=== PATIENT | male | born 1995 | race Two or more races ===

== ENCOUNTER 2017-04-01 12:08 | Emergency (ER) | payer OTHER ==
[2017-04-01 12:32] VITALS: BP 146/85; PULSE 70; RESP 18; TEMP 97.8
[2017-04-01] MEDS ORDERED: cefTRIAXone 250 MG VIAL IM STA (12:42)
[2017-04-01] MEDS ORDERED: AZITHROMYCIN 500 MG TAB PO STA (12:44)
--- NOTE | 2017-04-01 13:14 | ED ---
General Adult HPI - General Chief complaint: Abdominal Pain Stated complaint: Abd Pain Time Seen by Provider: 04/01/17 12:37 Source: patient, RN notes reviewed, old records reviewed Mode of arrival: ambulatory Limitations: no limitations - History of Present Illness Initial comments: This is a 22-year-old male the ER for evaluation of dysuria. Patient does have history of recent sexual activity. Patient states he is having drainage from his urethra, penis. No rash. No fevers. No other swelling or edema - Related Data Previous Rx's Medication Instructions Recorded Doxycycline Monohydrate [Monodox] 100 mg PO Q12HR #28 cap 04/01/17 Allergies Allergy/AdvReac Type Severity Reaction Status Date / Time No Known Allergies Allergy Verified 04/01/17 13:00 Review of Systems ROS Statement: Those systems with pertinent positive or pertinent negative responses have been documented in the HPI. ROS Other: All systems not noted in ROS Statement are negative. Past Medical History Past Medical History: No Reported History History of Any Multi-Drug Resistant Organisms: None Reported Past Surgical History: No Surgical Hx Reported Past Psychological History: No Psychological Hx Reported Smoking Status: Current every day smoker Past Alcohol Use History: None Reported Past Drug Use History: None Reported General Exam Limitations: no limitations General appearance: alert, in no apparent distress Head exam: Present: atraumatic, normocephalic, normal inspection Eye exam: Present: normal appearance, PERRL, EOMI. Absent: scleral icterus, conjunctival injection, periorbital swelling ENT exam: Present: normal exam, mucous membranes moist Neck exam: Present: normal inspection. Absent: tenderness, meningismus, lymphadenopathy Respiratory exam: Present: normal lung sounds bilaterally. Absent: respiratory distress, wheezes, rales, rhonchi, stridor Cardiovascular Exam: Present: regular rate, normal rhythm, normal heart sounds. Absent: systolic murmur, diastolic murmur, rubs, gallop, clicks GI/Abdominal exam: Present: soft, normal bowel sounds. Absent: distended, tenderness, guarding, rebound, rigid Extremities exam: Present: normal inspection, full ROM, normal capillary refill. Absent: tenderness, pedal edema, joint swelling, calf tenderness Back exam: Present: normal inspection Neurological exam: Present: alert, oriented X3, CN II-XII intact Psychiatric exam: Present: normal affect, normal mood Skin exam: Present: warm, dry, intact, normal color. Absent: rash Course Vital Signs 04/01/17 12:30 Temperature 97.8 F Pulse Rate 70 Respiratory 18 Rate Blood Pressure 146/85 O2 Sat by Pulse 99 Oximetry - Reevaluation(s) Reevaluation #1: 04/01/17 13:13 Patient denying genital exam at this time Medical Decision Making - Medical Decision Making 22 male the ER for evaluation of dysuria. Urine is cultured, patient's treated appropriately can be discharged home - Lab Data Lab Results 04/01/17 Range/Units 12:51 Urine Color Light Yellow Urine Appearance Cloudy (Clear) Urine pH 7.0 (5.0-8.0) Ur Specific [place] 1.007 (1.001-1.035) Urine Protein Negative (Negative) Urine Glucose (UA) Negative (Negative) Urine Ketones Negative (Negative) Urine Blood Trace H (Negative) Urine Nitrite Negative (Negative) Urine Bilirubin Negative (Negative) Urine Urobilinogen <2.0 (<2.0) mg/dL Ur Leukocyte Esterase Large H (Negative) Urine RBC 7 H (0-5) /hpf Urine WBC 165 H (0-5) /hpf Disposition Clinical Impression: Nongonococcal urethritis in male Disposition: HOME SELF-CARE Condition: Good Instructions: Nonspecific Urethritis in Men (ED) Prescriptions: Doxycycline Monohydrate [Monodox] 100 mg PO Q12HR #28 cap Referrals: None,Stated [Primary Care Provider] - 1-2 days
[2017-04-01 13:17] LABS: Appearance,Urine Cloudy (Clear); Bilirubin,Urine Negative (Negative); Blood,Urine Trace (Negative); Color,Urine Light Yellow; Glucose,Urine (UA) Negative (Negative); Ketones,Urine Negative (Negative); Leukocyte Esterase,Urine Large (Negative); Nitrite,Urine Negative (Negative); Protein,Urine Negative (Negative); RBC,Urine 7 /hpf (0-5); Specific Gravity,Urine 1.007 (1.001-1.035); Urobilinogen,Urine <2.0 mg/dL (<2.0); WBC,Urine 165 /hpf (0-5)
[2017-04-03 08:25] LABS: C. trachomatis,PCR Negative (Neg,Equiv); Chlamydia trachomatis Source Urine; N. gonorrhoeae,PCR Positive (Neg,Equiv); Neisseria Source Urine
== END 2017-04-01 14:24 | disposition home or self-care (01) ==
LOC: EC 12:08
DX: N34.1 Nonspecific urethritis (principal); F17.200 Nicotine dependence, unspecified, uncomplicated
CPT/HCPCS: 81001; 87491; 87591; 87086; 99284; 96372; J0696

== ENCOUNTER 2017-07-22 15:27 | Emergency (ER) | payer OTHER ==
[2017-07-22 15:34] VITALS: BP 141/88; PULSE 64; RESP 18; TEMP 97.8
[2017-07-22] MEDS ORDERED: IBUPROFEN 600 MG TAB PO STA (16:04)
--- NOTE | 2017-07-22 16:23 | XR ---
EXAMINATION TYPE: XR foot complete LT DATE OF EXAM: 07/22/2017 CLINICAL HISTORY: First digit laceration with glass TECHNIQUE: Frontal, lateral, and oblique images of the left foot are obtained. COMPARISON: None FINDINGS: Soft tissue swelling and focal defect are seen of the medial first digit of the left foot at the interphalangeal joint. No radiopaque foreign body is seen. There is no acute fracture/dislocat ion evident in the left foot. The joint spaces in the left foot appear within normal limits. The ov erlying soft tissue appears unremarkable. IMPRESSION: There is no acute fracture or dislocation in the left foot. Soft tissue swelling and foc al soft tissue defect of the medial left first digit overlying the interphalangeal joint with no radi opaque foreign body identified.
--- NOTE | 2017-07-22 16:25 | ED ---
General Adult HPI - General Chief complaint: Extremity Injury, Lower Stated complaint: foot injury Time Seen by Provider: 07/22/17 15:40 Source: patient, RN notes reviewed Mode of arrival: wheelchair Limitations: no limitations - History of Present Illness Initial comments: 22-year-old male presents to the emergency department for a chief complaint of left foot pain 1 hour. Patient dropped a glass table on his left foot and the glass broke. Patient states his tetanus is up-to-date. Patient is able to walk on it but it is painful. Patient denies injuring any other area. Patient denies hitting his head. Patient has no other complaints at this time including shortness of breath, chest pain, abdominal pain, nausea or vomiting, headache, or visual changes. - Related Data Previous Rx's Medication Instructions Recorded Doxycycline Monohydrate [Monodox] 100 mg PO Q12HR #28 cap 04/01/17 Acetaminophen [Tylenol] 500 mg PO Q4-6H PRN #20 tab 07/22/17 Ibuprofen [Motrin] 600 mg PO Q8HR PRN #20 tab 07/22/17 Allergies Allergy/AdvReac Type Severity Reaction Status Date / Time cadex Allergy Unknown Uncoded 07/22/17 15:32 Review of Systems ROS Statement: Those systems with pertinent positive or pertinent negative responses have been documented in the HPI. ROS Other: All systems not noted in ROS Statement are negative. Past Medical History Past Medical History: No Reported History History of Any Multi-Drug Resistant Organisms: None Reported Past Surgical History: No Surgical Hx Reported Past Psychological History: No Psychological Hx Reported Smoking Status: Current every day smoker Past Alcohol Use History: None Reported Past Drug Use History: None Reported General Exam Limitations: no limitations General appearance: alert, in no apparent distress Head exam: Present: atraumatic, normocephalic, normal inspection Eye exam: Present: normal appearance ENT exam: Present: normal exam, mucous membranes moist Neck exam: Present: normal inspection. Absent: tenderness, meningismus, lymphadenopathy Respiratory exam: Present: normal lung sounds bilaterally. Absent: respiratory distress, wheezes, rales, rhonchi, stridor Cardiovascular Exam: Present: regular rate, normal rhythm, normal heart sounds. Absent: systolic murmur, diastolic murmur, rubs, gallop, clicks Extremities exam: Present: normal inspection, tenderness (Patient has tenderness on the dorsal digits of the left foot), normal capillary refill ( Refill less than 2 seconds and pedal pulse 2+). Absent: full ROM (Patient has limited range of motion of the digits of the left foot but is able to move all toes.), pedal edema, joint swelling (Patient has mild swelling of), calf tenderness Course Vital Signs 07/22/17 15:32 Temperature 97.8 F Pulse Rate 64 Respiratory 18 Rate Blood Pressure 141/88 O2 Sat by Pulse 100 Oximetry Medical Decision Making - Medical Decision Making 22-year-old male presents to the emergency department for a chief complaint of left foot pain 1 hour. Patient dropped a glass table on his foot. Patient states the glass shattered. Patient denies any other injuries. Tetanus up-to- date. On exam patient has tenderness over all digits of the left foot. Pedal pulse 2+. Capillary refill less than 2 seconds. There are abrasions on the first third and fourth digits. Vitals within normal limits. Foot was soaked in water and cleaned thoroughly. There is no acute fracture or dislocation in the left foot. Soft tissue swelling and focal soft tissue defect on the medial left first digit overlying the interphalangeal joint with no radiopaque foreign body identified. Bacitracin was applied to the abrasions on the first third and fourth digits. Band-Aids were also applied. No signs of infection currently. Patient was educated that he may need repeat x-rays in 7-10 days if symptoms continue. He will return to the emergency department if he has any other worsening symptoms. Patient can walk on it but was given today and tomorrow off of work to keep it elevated and apply ice. Disposition Clinical Impression: Contusion of foot, left Disposition: HOME SELF-CARE Condition: Good Instructions: Foot Contusion (ED), RICE Therapy (ED) Additional Instructions: Please take Motrin and Tylenol for pain. Please elevate the foot and apply ice throughout the day. Return to the emergency department if you have any worsening symptoms. Prescriptions: Acetaminophen [Tylenol] 500 mg PO Q4-6H PRN #20 tab PRN Reason: Pain Ibuprofen [Motrin] 600 mg PO Q8HR PRN #20 tab PRN Reason: Pain Is patient prescribed a controlled substance at d/c from ED?: No Referrals: Venkat Harrington DO [STAFF PHYSICIAN] - 1-2 days Time of Disposition: 16:56
[2017-07-22] MEDS ORDERED: Acetaminophen-Codeine 300-30mg TAB PO STA (16:54)
== END 2017-07-22 17:04 | disposition home or self-care (01) ==
LOC: EC 15:27
DX: S90.32XA Contusion of left foot, initial encounter (principal); F17.200 Nicotine dependence, unspecified, uncomplicated; Z88.8 Allergy status to other drugs, medicaments and biological substances; W20.8XXA Other cause of strike by thrown, projected or falling object, initial encounter; Y92.009 Unspecified place in unspecified non-institutional (private) residence as the place of occurrence of the external cause
CPT/HCPCS: 99283

== ENCOUNTER 2017-12-01 09:40 | Emergency (ER) | payer OTHER ==
[2017-12-01 10:26] VITALS: BP 113/64; PULSE 71; RESP 18; TEMP 99.6
[2017-12-01] MEDS ORDERED: AMOXIC-POT CLAV 875MG STARTER 2 EACH TABLET PO STA (11:32)
[2017-12-01] MEDS ORDERED: ACETAMINOPHEN TAB 500 MG TAB PO STA (11:32)
--- NOTE | 2017-12-01 11:34 | ED ---
ENT HPI - General Chief complaint: ENT Stated complaint: nodule on throat Time Seen by Provider: 12/01/17 11:11 Source: patient, RN notes reviewed, old records reviewed Mode of arrival: ambulatory Limitations: no limitations - History of Present Illness Initial comments: Patient is a 22-year-old male presents restarted chief complaint of sore throat , and dental pain. Patient reports that he is having symptoms for the past 2 days. Reports that his throat is swelling in his has enlarged tonsils. Patient states he has had low-grade fevers. He reports that did have an abscess over his left upper molar, which drained yesterday. Patient reports that he had purulent drainage from the teeth.Patient denies any recent fever, chills, shortness of breath, chest pain, back pain, abdominal pain, nausea vomiting, numbness or tingling, dysuria or hematuria, constipation or diarrhea, headaches or visual changes, or any other current symptoms - Related Data Home Medications Medication Instructions Recorded Confirmed Ibuprofen [Motrin Ib] 800 mg PO Q6H PRN 12/01/17 12/01/17 Previous Rx's Medication Instructions Recorded Amoxic-Pot Clav 875-125Mg 1 tab PO BID 3 Days #6 tab 12/01/17 [Augmentin 875-125] Amoxic-Pot Clav 875-125Mg 1 tab PO Q12HR #20 tablet 12/02/17 [Augmentin 875-125] Allergies Allergy/AdvReac Type Severity Reaction Status Date / Time cadex Allergy Unknown Uncoded 12/01/17 10:26 Review of Systems ROS Statement: Those systems with pertinent positive or pertinent negative responses have been documented in the HPI. ROS Other: All systems not noted in ROS Statement are negative. Past Medical History Past Medical History: No Reported History History of Any Multi-Drug Resistant Organisms: None Reported Past Surgical History: No Surgical Hx Reported Past Psychological History: No Psychological Hx Reported Smoking Status: Current every day smoker Past Alcohol Use History: Occasional Past Drug Use History: None Reported General Exam - General Exam Comments Initial Comments: 22-year-old male. Alert and oriented. No significant distress. Limitations: no limitations General appearance: alert, in no apparent distress Head exam: Present: atraumatic, normocephalic, normal inspection Eye exam: Present: normal appearance, PERRL, EOMI. Absent: scleral icterus, conjunctival injection, periorbital swelling ENT exam: Present: mucous membranes moist. Absent: normal exam, normal oropharynx (Patient is swollen oropharynx, evidence of exudate. Drainage from left upper molar noted.) Neck exam: Present: normal inspection. Absent: tenderness, meningismus, lymphadenopathy Respiratory exam: Present: normal lung sounds bilaterally. Absent: respiratory distress, wheezes, rales, rhonchi, stridor Cardiovascular Exam: Present: regular rate, normal rhythm, normal heart sounds. Absent: systolic murmur, diastolic murmur, rubs, gallop, clicks GI/Abdominal exam: Present: soft, normal bowel sounds. Absent: distended, tenderness, guarding, rebound, rigid Neurological exam: Present: alert, oriented X3, CN II-XII intact Psychiatric exam: Present: normal affect, normal mood Skin exam: Present: warm, dry, intact, normal color. Absent: rash Course Vital Signs 12/01/17 10:23 Temperature 99.6 F Pulse Rate 71 Respiratory 18 Rate Blood Pressure 113/64 O2 Sat by Pulse 96 Oximetry Medical Decision Making - Medical Decision Making 20-year-old male presents for times a day with dental abscess also pharyngitis. His evidence that she is were the posterior oropharynx. At this time I'll put the Patient on Augmentin to cover for anaerobic and sickle strep bacteria to cause the symptoms. Patient had low-grade temperature as well. Given Tylenol. Discussed needs follow-up with dentist as well as primary care physician. Patient agrees to plan will comply. Return parameters were discussed. Disposition Clinical Impression: Pharyngitis, Dental abscess Disposition: HOME SELF-CARE Condition: Good Instructions: Dental Abscess (ED) Additional Instructions: Patient advised to follow up with primary care provider. Return to emergency department if any alarming signs or symptoms occur. [facility] [place] [address] [phone] (existing clients only) For new clients: [phone] 1st consult: $50 (includes Xrays) Usually 30% less then private dentist for visits after. [employer] Have to pay $50 for Xrays anmd rest is covered. [phone] Prescriptions: Amoxic-Pot Clav 875-125Mg [Augmentin 875-125] 1 tab PO BID 3 Days #6 tab Amoxic-Pot Clav 875-125Mg [Augmentin 875-125] 1 tab PO Q12HR #20 tablet Is patient prescribed a controlled substance at d/c from ED?: No Referrals: None,Stated [Primary Care Provider] - 1-2 days Time of Disposition: 11:33
== END 2017-12-01 11:44 | disposition home or self-care (01) ==
LOC: EC 09:40
DX: K04.7 Periapical abscess without sinus (principal); J02.9 Acute pharyngitis, unspecified; F17.200 Nicotine dependence, unspecified, uncomplicated; Z88.8 Allergy status to other drugs, medicaments and biological substances
CPT/HCPCS: 99283

== ENCOUNTER 2018-08-12 07:52 | Emergency (ER) | payer OTHER ==
[2018-08-12 07:56] VITALS: RESP 18; TEMP 97.6
[2018-08-12] MEDS ORDERED: KETOROLAC 30 MG/ML 1 ML VIAL IVP STA (08:06)
[2018-08-12] MEDS ORDERED: diphenhydrAMINE 50 MG/ML 1 ML VIAL IVP STA (08:06)
[2018-08-12] MEDS ORDERED: METOCLOPRAMIDE 5 MG/ML 2 ML VIAL IVP STA (08:06)
[2018-08-12] MEDS ORDERED: SODIUM CHLORIDE 0.9% 1,000 ML IV STA ×2 (08:06)
[2018-08-12] MEDS ORDERED: ORPHENADRINE 30 MG/ML 2 ML VIAL IVP STA (08:11)
--- NOTE | 2018-08-12 08:13 | ED ---
General Adult HPI - General Chief complaint: Headache Stated complaint: headache Time Seen by Provider: 08/12/18 07:59 Source: patient, RN notes reviewed, old records reviewed Mode of arrival: ambulatory Limitations: no limitations - History of Present Illness Initial comments: Patient is a 23-year-old male who presents emergency department today for bradly luation for migraine-like headache. He reports his been having a headache off-and-on for the past 2 days. Patient states that he initially believed it was related to dental pain. He hasn't known history of dental caries and dental abscess. He states he does not follow with a dentist. Patient states that today he woke up with a pounding headache. He has not taken any Motrin or Tylenol. He states that his ever had history of migraines in the past. Patient states that he has had no fevers or chills. Denies any neck pain. Patient denies any recent fever, chills, shortness of breath, chest pain, back pain, abdominal pain, nausea vomiting, numbness or tingling, dysuria or hematuria, constipation or diarrhea, visual changes, or any other current symptoms - Related Data Home Medications Medication Instructions Recorded Confirmed Multivitamins, Thera [Multivitamin 1 tab PO DAILY 08/12/18 08/12/18 (formulary)] Previous Rx's Medication Instructions Recorded Amoxicillin 500 mg PO Q8H #21 capsule 08/12/18 Allergies Allergy/AdvReac Type Severity Reaction Status Date / Time cadex Allergy Rash/Hives Uncoded 08/12/18 08:46 Review of Systems ROS Statement: Those systems with pertinent positive or pertinent negative responses have been documented in the HPI. ROS Other: All systems not noted in ROS Statement are negative. Past Medical History Past Medical History: No Reported History History of Any Multi-Drug Resistant Organisms: None Reported Past Surgical History: No Surgical Hx Reported Past Psychological History: No Psychological Hx Reported Smoking Status: Current every day smoker Past Alcohol Use History: Occasional Past Drug Use History: None Reported General Exam - General Exam Comments Initial Comments: Pleasant alert and oriented 23-year-old male. No distress. Limitations: no limitations General appearance: alert, in no apparent distress Head exam: Present: atraumatic, normocephalic, normal inspection Eye exam: Present: normal appearance, PERRL, EOMI. Absent: scleral icterus, conjunctival injection, periorbital swelling ENT exam: Present: normal exam, normal oropharynx, mucous membranes moist, other (poor dentition ) Neck exam: Present: normal inspection. Absent: tenderness, meningismus, lymphadenopathy Respiratory exam: Present: normal lung sounds bilaterally Cardiovascular Exam: Present: regular rate, normal rhythm, normal heart sounds. Absent: systolic murmur, diastolic murmur, rubs, gallop, clicks GI/Abdominal exam: Present: soft, normal bowel sounds. Absent: distended, tenderness, guarding, rebound, rigid Extremities exam: Present: normal inspection, full ROM, normal capillary refill. Absent: tenderness, pedal edema, joint swelling, calf tenderness Back exam: Present: normal inspection Neurological exam: Present: alert, oriented X3, CN II-XII intact Psychiatric exam: Present: normal affect, normal mood Skin exam: Present: warm, dry, intact, normal color. Absent: rash Course Vital Signs 08/12/18 07:54 Temperature 97.6 F Pulse Rate 55 L Respiratory 18 Rate Blood Pressure 130/87 O2 Sat by Pulse 99 Oximetry Medical Decision Making - Medical Decision Making Patient is a 23-year-old has recurrence of migraine-like headache, also complaining of dental pain. He has history of dental caries and dental abscess. Patient is given migraine cocktail. He has no neurological deficits. Patient feels better after receiving IV fluids and medication. If this time Patient will be discharged with a prescription for Amoxilicillin for dental pain and concern for dental abscess. Discussed taking Motrin Tylenol on the dental clinic. Patient agrees to treatment plan will comply. Return parameters were discussed. - Radiology Data Radiology results: report reviewed Disposition Clinical Impression: Pain, dental, Migraine Disposition: HOME SELF-CARE Condition: Good Instructions (If sedation given, give patient instructions): Migraine Headache (ED), Dental Abscess (ED) Additional Instructions: Patient Advised any close follow-up with primary care doctor. Take Motrin Tylenol for future pain. Return to emergency department if any alarming signs or symptoms occur. Take antibiotic as prescribed. Follow up with dental clinic. [facility] [place] [address] [place] [address] [phone] (existing clients only) For new clients: [phone] 1st consult: $50 (includes Xrays) Usually 30% less then private dentist for visits after. [employer] Have to pay $50 for Xrays anmd rest is covered. [phone] Prescriptions: Amoxicillin 500 mg PO Q8H #21 capsule Is patient prescribed a controlled substance at d/c from ED?: No Referrals: None,Stated [Primary Care Provider] - 1-2 days Time of Disposition: 08:56
[2018-08-12 09:03] VITALS: BP 117/83; PULSE 56
== END 2018-08-12 09:03 | disposition home or self-care (01) ==
LOC: EC 07:52
DX: G43.909 Migraine, unspecified, not intractable, without status migrainosus (principal); K08.89 Other specified disorders of teeth and supporting structures; F17.200 Nicotine dependence, unspecified, uncomplicated; Z88.8 Allergy status to other drugs, medicaments and biological substances
CPT/HCPCS: 99283; 96374; 96375 ×3; 96361; J1200; J2360; J2765; J1885

== ENCOUNTER 2019-06-09 11:22 | Emergency (ER) | payer OTHER ==
[2019-06-09 11:29] VITALS: BP 117/77; PULSE 70; RESP 18; TEMP 98.6
[2019-06-09] MEDS ORDERED: ACET/COD 300 MG/30 MG STARTER PACK 6 TAB BTL PO STA (11:43)
[2019-06-09] MEDS ORDERED: HYDROcodone/APAP 5-325MG 1 EACH TAB PO STA (11:43)
--- NOTE | 2019-06-09 11:45 | ED ---
ENT HPI - General Chief complaint: Dental/Oral Stated complaint: toothache Time Seen by Provider: 06/09/19 11:30 Source: patient, RN notes reviewed Mode of arrival: ambulatory Limitations: no limitations - History of Present Illness Initial comments: This a 24-year-old male presents emergency department tingling of dental pain. Patient states it has been worse over the last 2 weeks. He was seen a few weeks ago and placed on antibiotics and states it did help but states the pain is worse in the last few days he cannot tolerate the pain no relief with [id number]. He is unable to see a dentist at this time secondary to ongoing pandemic. Patient denies any fevers, chills denies any difficulty swallowing states it feels slightly swollen as left lower jaw region. Again he denies any difficulty swallowing. - Related Data Home Medications Medication Instructions Recorded Confirmed Multivitamins, Thera [Multivitamin 1 tab PO DAILY 08/12/18 08/12/18 (formulary)] Previous Rx's Medication Instructions Recorded Amoxicillin 500 mg PO Q8H #21 capsule 08/12/18 Ibuprofen [Motrin] 600 mg PO Q8HR PRN #30 tab 06/09/19 Penicillin V Potassium [Pen Vee K] 500 mg PO QID #40 tablet 06/09/19 Allergies Allergy/AdvReac Type Severity Reaction Status Date / Time cadex Allergy Rash/Hives Uncoded 08/12/18 08:46 Review of Systems ROS Statement: Those systems with pertinent positive or pertinent negative responses have been documented in the HPI. ROS Other: All systems not noted in ROS Statement are negative. Past Medical History Past Medical History: No Reported History History of Any Multi-Drug Resistant Organisms: None Reported Past Surgical History: No Surgical Hx Reported Past Psychological History: No Psychological Hx Reported Smoking Status: Current every day smoker Past Alcohol Use History: Occasional Past Drug Use History: None Reported General Exam Limitations: no limitations General appearance: alert, in no apparent distress Head exam: Present: atraumatic, normocephalic, normal inspection Eye exam: Present: normal appearance, PERRL, EOMI. Absent: scleral icterus, conjunctival injection, periorbital swelling ENT exam: Present: mucous membranes moist, TM's normal bilaterally, normal external ear exam. Absent: normal oropharynx (Dental fracture left lower there is no drainable abscess no trismus no significant swelling noted.) Neck exam: Present: normal inspection, full ROM. Absent: tenderness, meningismus, lymphadenopathy Respiratory exam: Present: normal lung sounds bilaterally. Absent: respiratory distress, wheezes, rales, rhonchi, stridor Cardiovascular Exam: Present: regular rate, normal rhythm, normal heart sounds. Absent: systolic murmur, diastolic murmur, rubs, gallop, clicks Course Vital Signs 06/09/19 11:26 Temperature 98.6 F Pulse Rate 70 Respiratory 18 Rate Blood Pressure 117/77 O2 Sat by Pulse 100 Oximetry Medical Decision Making - Medical Decision Making 24-year-old male presented for dental pain. Patient be treated for underlying dental infection. He has a dental fracture noted. The advised to follow-up with dentist as soon as possible. He'll be placed on antibiotics. Return parameters were discussed. Disposition Clinical Impression: Fracture of tooth, Dental infection Disposition: HOME SELF-CARE Condition: Stable Instructions (If sedation given, give patient instructions): Toothache (ED) Additional Instructions: Please return to the Emergency Department if symptoms worsen or any other concerns. Prescriptions: Ibuprofen [Motrin] 600 mg PO Q8HR PRN #30 tab PRN Reason: Pain Penicillin V Potassium [Pen Vee K] 500 mg PO QID #40 tablet Is patient prescribed a controlled substance at d/c from ED?: No Referrals: None,Stated [Primary Care Provider] - 1-2 days Time of Disposition: 11:45
== END 2019-06-09 11:51 | disposition home or self-care (01) ==
LOC: EC 11:22
DX: S02.5XXA Fracture of tooth (traumatic), initial encounter for closed fracture (principal); K04.7 Periapical abscess without sinus; F17.200 Nicotine dependence, unspecified, uncomplicated; Z88.8 Allergy status to other drugs, medicaments and biological substances; X58.XXXA Exposure to other specified factors, initial encounter
CPT/HCPCS: 99282

== ENCOUNTER 2019-10-23 15:55 | Emergency (ER) | payer OTHER ==
[2019-10-23 16:50] VITALS: BP 121/72; PULSE 56; RESP 18; TEMP 98.6
[2019-10-23] MEDS ORDERED: DEXAMETHASONE SOD PHOSPHATE 10 MG/ML 1 ML VIAL IM STA (16:57)
--- NOTE | 2019-10-23 17:09 | ED ---
General Adult HPI - General Chief complaint: ENT Stated complaint: sore throat Time Seen by Provider: 10/23/19 16:50 Source: patient, RN notes reviewed, old records reviewed Mode of arrival: ambulatory Limitations: no limitations - History of Present Illness Initial comments: 24-year-old male with sore throat. Patient has had symptoms for the past 4 da ys. He describes bilateral sore throat and some pain with swallowing. He did notice some swollen lymph nodes as well. No fever. No chest pain or dyspnea. No cough. He had a mild runny nose associated with this. Denies any known sick contacts. Patient is otherwise healthy. - Related Data Home Medications Medication Instructions Recorded Confirmed Multivitamins, Thera [Multivitamin 1 tab PO DAILY 08/12/18 08/12/18 (formulary)] Previous Rx's Medication Instructions Recorded Amoxicillin 500 mg PO Q8H #21 capsule 08/12/18 Ibuprofen [Motrin] 600 mg PO Q8HR PRN #30 tab 06/09/19 Penicillin V Potassium [Pen Vee K] 500 mg PO QID #40 tablet 06/09/19 Amoxicillin 500 mg PO Q12HR #10 cap 10/23/19 Allergies Allergy/AdvReac Type Severity Reaction Status Date / Time cadex Allergy Rash/Hives Uncoded 10/23/19 16:49 Review of Systems ROS Statement: Those systems with pertinent positive or pertinent negative responses have been documented in the HPI. ROS Other: All systems not noted in ROS Statement are negative. Past Medical History Past Medical History: No Reported History History of Any Multi-Drug Resistant Organisms: None Reported Past Surgical History: No Surgical Hx Reported Past Psychological History: No Psychological Hx Reported Smoking Status: Never smoker Past Alcohol Use History: Occasional Past Drug Use History: None Reported General Exam Limitations: no limitations General appearance: alert, in no apparent distress Head exam: Present: atraumatic, normocephalic Eye exam: Present: normal appearance, PERRL ENT exam: Present: other (Mild pharyngeal erythema, tonsillar swelling bilaterally, uvula is midline, there is minimal exudate on the bilateral tonsils.) Neck exam: Present: normal inspection. Absent: tenderness Respiratory exam: Present: normal lung sounds bilaterally. Absent: respiratory distress, wheezes, rales GI/Abdominal exam: Present: soft. Absent: distended, tenderness, guarding Extremities exam: Present: normal inspection, normal capillary refill. Absent: pedal edema Neurological exam: Present: alert, oriented X3, CN II-XII intact. Absent: motor sensory deficit Psychiatric exam: Present: normal affect, normal mood Skin exam: Present: warm, dry, intact. Absent: cyanosis, diaphoretic Course Vital Signs 10/23/19 16:45 Temperature 98.6 F Pulse Rate 56 L Respiratory 18 Rate Blood Pressure 121/72 O2 Sat by Pulse 99 Oximetry Medical Decision Making - Medical Decision Making 24-year-old male presenting with sore throat. Patient has swollen tonsils bilaterally with minimal exudate. Rapid strep testing is positive. He is given a dose of Decadron and started on amoxicillin in the emergency department. - Lab Data Lab Results 10/23/19 Range/Units 17:01 Group A Strep Rapid Positive A (Negative) Disposition Clinical Impression: Strep pharyngitis Disposition: HOME SELF-CARE Condition: Good Instructions (If sedation given, give patient instructions): Pharyngitis (ED), Strep Throat (ED) Prescriptions: Amoxicillin 500 mg PO Q12HR #10 cap Is patient prescribed a controlled substance at d/c from ED?: No Referrals: None,Stated [Primary Care Provider] - 1-2 days Erasmo Diamond MD [REFERRING] - 1-2 days Time of Disposition: 17:36
== END 2019-10-23 17:46 | disposition home or self-care (01) ==
LOC: EC 15:55
DX: J02.0 Streptococcal pharyngitis (principal); Z91.048 Other nonmedicinal substance allergy status
CPT/HCPCS: 87430; 96372; 99284; J1100

== ENCOUNTER 2019-11-21 22:23 | Emergency (ER) | payer OTHER ==
[2019-11-21 22:27] VITALS: BP 121/73; PULSE 83; RESP 18; TEMP 99.2
--- NOTE | 2019-11-21 22:36 | ED ---
Back Pain HPI - General Chief Complaint: Back Pain/Injury Stated Complaint: Back Pain Time Seen by Provider: 11/21/19 22:36 Source: patient Limitations: no limitations - History of Present Illness Initial Comments: Leno is a previously healthy 24-year-old male who presents the ER today for evaluation of sided low back pain. Patient reports that on Thursday he played recreational baseball with some friends, he states that he was doing a lot of twisting while batting and on Thursday he woke up with muscle spasm in the left side of his back. He states that eating get out of bed all day because he was so uncomfortable. He tried taking some [id number] Tylenol and Motrin and applying heat and ice but was unable to go to work on Thursday or Thursday. Patient reports that he doesn't have primary care physician and needs a work note in addition wanted some relief for his back pain secondary came to the ER for evaluation. Patient denies any midline back pain, denies any fever, denies any weakness, numbness or tingling in the legs, denies any bowel or bladder incontinence or retention. - Related Data Home Medications Medication Instructions Recorded Confirmed Multivitamins, Thera [Multivitamin 1 tab PO DAILY 08/12/18 08/12/18 (formulary)] Previous Rx's Medication Instructions Recorded Amoxicillin 500 mg PO Q8H #21 capsule 08/12/18 Ibuprofen [Motrin] 600 mg PO Q8HR PRN #30 tab 06/09/19 Penicillin V Potassium [Pen Vee K] 500 mg PO QID #40 tablet 06/09/19 Amoxicillin 500 mg PO Q12HR #10 cap 10/23/19 Ibuprofen [Motrin] 600 mg PO Q6HR PRN #30 tab 11/21/19 Lidocaine 5% Patch [Lidoderm] 1 patch TOPICAL DAILY #30 patch 11/21/19 Orphenadrine [Norflex] 100 mg PO Q12H #30 tablet.er 11/21/19 Allergies Allergy/AdvReac Type Severity Reaction Status Date / Time cadex Allergy Rash/Hives Uncoded 11/21/19 22:27 Review of Systems ROS Statement: Those systems with pertinent positive or pertinent negative responses have been documented in the HPI. ROS Other: All systems not noted in ROS Statement are negative. Past Medical History Past Medical History: No Reported History History of Any Multi-Drug Resistant Organisms: None Reported Past Surgical History: No Surgical Hx Reported Past Psychological History: No Psychological Hx Reported Smoking Status: Never smoker Past Alcohol Use History: Occasional Past Drug Use History: None Reported General Exam - General Exam Comments Initial Comments: Physical Exam GENERAL: Patient is well-developed and well-nourished. Patient is nontoxic and well-hydrated and is in no distress. HENT: Normocephalic, Atraumatic. EYES: PERRL, EOMI PULMONARY: Unlabored respirations. CARDIOVASCULAR: RRR Warm and well perfused extremities ABDOMEN: Non-distended SKIN: No rashes or bruising : Deferred NEUROLOGIC: Alert and oriented Normal speech Normal gait MUSCULOSKELETAL: Moving all extremities with no apparent injury Left lumbar paraspinal hypertonicity obvious muscle spasm PSYCHIATRIC: No SI/HI Limitations: no limitations Course Vital Signs 11/21/19 22:25 Temperature 99.2 F Pulse Rate 83 Respiratory 18 Rate Blood Pressure 121/73 O2 Sat by Pulse 100 Oximetry Medical Decision Making - Medical Decision Making The patient was seen and evaluated this is a very healthy 24-year-old male with left paraspinal muscular pain after twisting laying baseball on Thursday. Patient has no red flag symptoms no midline back pain, fever, neuro deficits, bowel or bladder incontinence or retention. Physical exam does reveal hypertonicity of the paraspinal muscles. Patient will be treated symptomaticall y and I did offer the patient Toradol and Norflex injections however he states he doesn't like needles and would prefer just oral. Patient states he is primarily here for a work note. She'll be prescribed anti-inflammatories, muscle relaxers and Lidoderm patches, provided a work note to return to work tomorrow. Disposition Clinical Impression: Strain of lumbar paraspinal muscle Disposition: HOME SELF-CARE Condition: Stable Additional Instructions: Make sure you are stretching and staying active to prevent the muscles from becoming more locked up Take motrin every 4-6hrs and keep a lidoderm patch on the back during the day Take Norflex for muscle spasm, do not drive while taking this Return to the ER if you have any worsening or develop any new or concerning symptoms including fevers, weakness in the legs, difficulty peeing or if you have any numbness in the legs Prescriptions: Lidocaine 5% Patch [Lidoderm] 1 patch TOPICAL DAILY #30 patch Ibuprofen [Motrin] 600 mg PO Q6HR PRN #30 tab PRN Reason: Pain Orphenadrine [Norflex] 100 mg PO Q12H #30 tablet.er Is patient prescribed a controlled substance at d/c from ED?: No Referrals: None,Stated [Primary Care Provider] - 1-2 days
[2019-11-21] MEDS ORDERED: IBUPROFEN 600 MG STARTER PACK 4 TAB BTL PO STA (22:48)
[2019-11-21] MEDS ORDERED: LIDOCAINE 5% PATCH TOPICAL STA (22:48)
== END 2019-11-21 23:10 | disposition home or self-care (01) ==
LOC: EC 22:23
DX: S39.012A Strain of muscle, fascia and tendon of lower back, initial encounter (principal); M62.830 Muscle spasm of back; Z88.8 Allergy status to other drugs, medicaments and biological substances; X50.3XXA Overexertion from repetitive movements, initial encounter; Y93.64 Activity, baseball
CPT/HCPCS: 99283

== ENCOUNTER 2020-01-08 20:36 | Emergency (ER) | payer OTHER ==
[2020-01-08 20:41] VITALS: BP 106/66; PULSE 62; RESP 18; TEMP 98.9
[2020-01-08] MEDS ORDERED: predniSONE 50 MG TAB PO STA (21:02)
[2020-01-08] MEDS ORDERED: CEPHALEXIN 500MG STARTER PACK 4 CAP BTL PO STA (21:36)
[2020-01-08 21:38] LABS: Amorphous Sediment,Urine Rare /hpf; Appearance,Urine Turbid (Clear); Bilirubin,Urine Negative (Negative); Blood,Urine Negative (Negative); Color,Urine Yellow; Glucose,Urine (UA) Negative (Negative); Ketones,Urine Negative (Negative); Leukocyte Esterase,Urine Negative (Negative); Nitrite,Urine Negative (Negative); Protein,Urine Trace (Negative); RBC,Urine 1 /hpf (0-5); Urobilinogen,Urine <2.0 mg/dL (<2.0)
--- NOTE | 2020-01-08 21:39 | ED ---
General Adult HPI - General Chief complaint: Skin/Abscess/Foreign Body Stated complaint: Allergic Reaction Time Seen by Provider: 01/08/20 20:45 Source: patient, RN notes reviewed, old records reviewed Mode of arrival: ambulatory Limitations: no limitations - History of Present Illness Initial comments: This patient's a pleasant 24-year-old male with a history of psoriasis. He presents to the emergency department today with 2 months of diffuse erythematous pruritic rash over her trunk arms back and face. Patient reports it's multiple circular-like lesions throughout his body. Patient states that His Groin and Buttocks As Well. He States That He's Been Trying to Put Vaseline over This to Help with the Itching. He States He Typically Has Small Amounts of Psoriasis on the Back of His Legs. He Does Report That 2 Months Ago He Was Treated for Strep Infection and Seems to Notice That the Rash Started to Appear Afterward. Patient States That He Has No Fevers or Chills. Patient Denies Dysuria. He does report that he wants to be tested for sexually transmitted infections. - Related Data Previous Rx's Medication Instructions Recorded Cephalexin [Keflex] 500 mg PO Q8HR #21 cap 01/08/20 Hydrocortisone Oint 1 applic TOPICAL TID #60 gm 01/08/20 [Hydrocortisone 1% Oint] predniSONE [Deltasone] 20 mg PO DIRECTED #12 tab 01/08/20 Allergies Allergy/AdvReac Type Severity Reaction Status Date / Time cadex Allergy Rash/Hives Uncoded 01/08/20 21:19 Review of Systems ROS Statement: Those systems with pertinent positive or pertinent negative responses have been documented in the HPI. ROS Other: All systems not noted in ROS Statement are negative. Past Medical History Past Medical History: No Reported History History of Any Multi-Drug Resistant Organisms: None Reported Past Surgical History: No Surgical Hx Reported Past Psychological History: No Psychological Hx Reported Smoking Status: Never smoker Past Alcohol Use History: Occasional Past Drug Use History: None Reported General Exam - General Exam Comments Initial Comments: 24-year-old male. Alert and oriented 3. No distress. Limitations: no limitations General appearance: alert, in no apparent distress Head exam: Present: atraumatic, normocephalic, normal inspection Eye exam: Present: normal appearance, PERRL, EOMI. Absent: scleral icterus, conjunctival injection, periorbital swelling ENT exam: Present: normal exam, mucous membranes moist, other (Patient has erythematous rash over face cheeks. It is scaly.) Neck exam: Present: normal inspection. Absent: tenderness, meningismus, lymphadenopathy Respiratory exam: Present: normal lung sounds bilaterally. Absent: respiratory distress, wheezes, rales, rhonchi, stridor Cardiovascular Exam: Present: regular rate, normal rhythm, normal heart sounds. Absent: systolic murmur, diastolic murmur, rubs, gallop, clicks GI/Abdominal exam: Present: soft, normal bowel sounds. Absent: distended, tenderness, guarding, rebound, rigid Extremities exam: Present: normal inspection, full ROM, normal capillary refill. Absent: tenderness, pedal edema, joint swelling, calf tenderness Back exam: Present: normal inspection Neurological exam: Present: alert, oriented X3, CN II-XII intact Psychiatric exam: Present: normal affect, normal mood Skin exam: Present: warm, dry, intact, normal color, rash (Patient does have sporadic erythematous scaly plaques over chest abdomen back and arms. Appearance of the guttate psoriasis.) Course Vital Signs 01/08/20 20:38 Temperature 98.9 F Pulse Rate 62 Respiratory 18 Rate Blood Pressure 106/66 O2 Sat by Pulse 100 Oximetry Medical Decision Making - Medical Decision Making 24-year-old male with 2 months of an erythematous and periodic rash over her face abdomen and back extremities. Patient's rash is consistent with good Obrien psoriasis. His history does state that he had a strep infection 3 months ago prior to this rash starting. Patient also questioned if he has any concern for STDs so urinalysis was completed for a gonorrhea and did test the Patient for syphillis. These results are pending. Patient at this time will be treated for the good Obrien psoriasis with steroids and steroid cream. She will also be started on Keflex for secondary cellulitic infection. Over the face quite erythematous. Advised to follow-up with dermatology. Disposition Clinical Impression: Guttate psoriasis Disposition: HOME SELF-CARE Condition: Good Instructions (If sedation given, give patient instructions): Psoriasis (ED) Additional Instructions: Take the medications as prescribed. Follow-up with dermatology. Return to the emergency department if any alarming signs or symptoms occur. Apply the steroid ointment over the areas of rash as directed. Prescriptions: predniSONE [Deltasone] 20 mg PO DIRECTED #12 tab Hydrocortisone Oint [Hydrocortisone 1% Oint] 1 applic TOPICAL TID #60 gm Cephalexin [Keflex] 500 mg PO Q8HR #21 cap Is patient prescribed a controlled substance at d/c from ED?: No Referrals: None,Stated [Primary Care Provider] - 1-2 days Yunior Levine MD [STAFF PHYSICIAN] - 1-2 days Time of Disposition: 21:36
== END 2020-01-08 22:03 | disposition home or self-care (01) ==
LOC: EC 20:36
DX: L40.4 Guttate psoriasis (principal); Z88.8 Allergy status to other drugs, medicaments and biological substances
CPT/HCPCS: 36415; 81001; 87491; 87591; 86780; 87081; 87430; 99284; J7512

== ENCOUNTER 2020-02-13 20:24 | Emergency (ER) | payer OTHER ==
[2020-02-13 20:28] VITALS: BP 124/76; PULSE 63; RESP 18; TEMP 98.4
[2020-02-13] MEDS ORDERED: LIDOCAINE 5% PATCH TOPICAL STA (20:51)
[2020-02-13] MEDS ORDERED: KETOROLAC 15 MG/ML 1 ML VIAL IM STA (20:51)
--- NOTE | 2020-02-13 20:53 | ED ---
General Adult HPI - General Chief complaint: Back Pain/Injury Stated complaint: Back Pain Time Seen by Provider: 02/13/20 20:37 Source: patient Mode of arrival: ambulatory Limitations: no limitations - History of Present Illness Initial comments: Dictation was produced using [employer] dictation software. please excuse any grammatical, word or spelling errors. This patient was cared for during a federal and state declared state of emergency secondary to Covid 19 Chief Complaint: 25-year-old male presents with back strain History of Present Illness: 25-year-old male presents today with back pain. Couple days ago patient was ice skating when he slipped and fell. Patient states he landed on his back. Patient states otherwise he has been feeling well he is an Samantha without complication. He feels pain whenever he turns a certain way and whenever he bends down however otherwise he does not have any symptoms whatsoever. Denies any saddle anesthesia. No fevers. The ROS documented in this emergency department record has been reviewed and confirmed by me. Those systems with pertinent positive or negative responses have been documented in the HPI. All other systems are other negative and/or noncontributory. PHYSICAL EXAM: General Impression: Alert and oriented x3, not in acute distress HEENT: Normocephalic atraumatic, extra-ocular movements intact, pupils equal and reactive to light bilaterally, mucous membranes moist. Cardiovascular: Heart regular rate and rhythm Chest: Able to complete full sentences, no retractions, no tachypnea Abdomen: abdomen soft, non-tender, non-distended, no organomegaly Musculoskeletal: Pulses present and equal in all extremities, no peripheral edema Back: Mild right paraspinal soft tissue tenderness to palpation, no midline tenderness Motor: no focal deficits noted Neurological: CN II-XII grossly intact, no focal motor or sensory deficits noted Skin: Intact with no visualized rashes Psych: Normal affect and mood ED course: 25-year-old male presents with back strain. X-ray was offered however patient refused. He states that it [birth year] his birthday only wants some medicine to have symptoms feel better. As upon arrival are within acceptable limits. Patient is an Samantha without any, patient is well-appearing. He does not have any high-risk features. Patient given Toradol and Lidoderm patch. Patient be discharged. - Related Data Previous Rx's Medication Instructions Recorded Cephalexin [Keflex] 500 mg PO Q8HR #21 cap 01/08/20 Hydrocortisone Oint 1 applic TOPICAL TID #60 gm 01/08/20 [Hydrocortisone 1% Oint] predniSONE [Deltasone] 20 mg PO DIRECTED #12 tab 01/08/20 Allergies Allergy/AdvReac Type Severity Reaction Status Date / Time cadex Allergy Rash/Hives Uncoded 02/13/20 20:28 Review of Systems ROS Statement: Those systems with pertinent positive or pertinent negative responses have been documented in the HPI. ROS Other: All systems not noted in ROS Statement are negative. Past Medical History Past Medical History: No Reported History History of Any Multi-Drug Resistant Organisms: None Reported Past Surgical History: No Surgical Hx Reported Past Psychological History: No Psychological Hx Reported Smoking Status: Never smoker Past Alcohol Use History: Occasional Past Drug Use History: None Reported General Exam Limitations: no limitations Course Vital Signs 02/13/20 20:26 Temperature 98.4 F Pulse Rate 63 Respiratory 18 Rate Blood Pressure 124/76 O2 Sat by Pulse 98 Oximetry Disposition Clinical Impression: Back strain Disposition: HOME SELF-CARE Condition: Good Instructions (If sedation given, give patient instructions): Acute Low Back Pain (ED) Is patient prescribed a controlled substance at d/c from ED?: No Referrals: None,Stated [Primary Care Provider] - 1-2 days Time of Disposition: 20:53
== END 2020-02-13 21:16 | disposition home or self-care (01) ==
LOC: EC 20:24
DX: S39.012A Strain of muscle, fascia and tendon of lower back, initial encounter (principal); Z91.048 Other nonmedicinal substance allergy status; V00.211A Fall from ice-skates, initial encounter; Y93.21 Activity, ice skating
CPT/HCPCS: 99283; 96372; J1885

== ENCOUNTER 2020-03-09 17:54 | Emergency (ER) | payer OTHER ==
[2020-03-09 18:02] VITALS: BP 129/84; PULSE 98; RESP 18; TEMP 99.4
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
[2020-03-09] MEDS ORDERED: KETOROLAC 15 MG/ML 1 ML VIAL IM STA (18:30)
[2020-03-09] MEDS ORDERED: ACET/COD 300 MG/30 MG STARTER PACK 6 TAB BTL PO STA (18:31)
== END 2020-03-09 18:52 | disposition home or self-care (01) ==
LOC: EC 17:54
DX: T22.10XA Burn of first degree of shoulder and upper limb, except wrist and hand, unspecified site, initial encounter (principal); T24.102A Burn of first degree of unspecified site of left lower limb, except ankle and foot, initial encounter; T24.101A Burn of first degree of unspecified site of right lower limb, except ankle and foot, initial encounter; T31.0 Burns involving less than 10% of body surface; Z88.8 Allergy status to other drugs, medicaments and biological substances
CPT/HCPCS: 99282; 96372; J1885

== ENCOUNTER 2020-04-02 17:10 | Emergency (ER) | payer OTHER ==
[2020-04-02 17:17] VITALS: RESP 18; TEMP 98.6
[2020-04-02] MEDS ORDERED: AMOXIC-POT CLAV 875MG STARTER PACK 2 TAB BTL PO STA (17:35)
[2020-04-02] MEDS ORDERED: ACET/COD 300 MG/30 MG STARTER PACK 6 TAB BTL PO STA (17:35)
--- NOTE | 2020-04-02 17:36 | ED ---
ENT HPI - General Chief complaint: Dental/Oral Stated complaint: Oral Issue Time Seen by Provider: 04/02/20 17:27 Source: patient Mode of arrival: ambulatory Limitations: no limitations - History of Present Illness Initial comments: 25-year-old male presenting today for chief complaint of left upper tooth pain he states that he believes the root is exposed. Patient states the past few days he has had significant tenderness with any hot or cold foods touch were tooth #13 should be. he state he is cracked a tooth some time ago. Patient denies any swelling but states the pain has become more persistent at rest and increase with hot and cold foods. Patient states he does have appointment with the dentist coming up. He was instructed there is a developing infection he denies any swelling fevers chills general malaise sling blood tongue swelling of the neck no additional complaints patient appears well nontoxic distress - Related Data Previous Rx's Medication Instructions Recorded Amoxicillin/Potassium Clav 1 tab PO Q12HR 7 Days #14 tab 04/02/20 [Augmentin 875-125 Tablet] Allergies Allergy/AdvReac Type Severity Reaction Status Date / Time cadex Allergy Rash/Hives Uncoded 04/02/20 17:16 Review of Systems ROS Statement: Those systems with pertinent positive or pertinent negative responses have been documented in the HPI. ROS Other: All systems not noted in ROS Statement are negative. Past Medical History Past Medical History: No Reported History History of Any Multi-Drug Resistant Organisms: None Reported Past Surgical History: No Surgical Hx Reported Past Psychological History: No Psychological Hx Reported Smoking Status: Never smoker Past Alcohol Use History: Occasional Past Drug Use History: Marijuana General Exam - General Exam Comments Initial Comments: General: The patient is awake and alert, in no distress Eye: +3 mm pupils are equal, round and reactive to light, extra-ocular mo vements are intact. No nystagmus. There is normal conjunctiva bilaterally. No signs of icterus. Ears, nose, mouth and throat: There are moist mucous membranes and no oral lesions. Missing tooth but what appears to be exposed root at tooth #13. There is no adjacent swelling of the gingiva there is some tenderness percussion. No facial swelling. No swelling below tongue or of the neck or below the angle of mandible. Neck: The neck is supple, there is no tenderness or JVD. Neurological: A&O x 3. CN II-XII intact grossly, There are no obvious motor or sensory deficits. Coordination appears grossly intact. Speech is normal. Skin: Skin is warm and dry and no rashes or lesions are noted. Psychiatric: Cooperative, appropriate mood & affect, normal judgment. Limitations: no limitations Course Vital Signs 04/02/20 04/02/20 17:15 17:46 Temperature 98.6 F Pulse Rate 67 78 Respiratory 18 18 Rate Blood Pressure 132/82 116/64 O2 Sat by Pulse 100 99 Oximetry Medical Decision Making - Medical Decision Making 25yo with dental pain. most likely felt that pain caused by root exposure. cannot r/o developing infection. abx initiated. pt given symptomatic treatment, recommend dentist f/u. return for worsening, pain swelling, fevers, swelling below tongue or neck. She verbalized understanding is agreeable to this care plan as well as discharge at this time. Attending Dr. Frey Disposition Clinical Impression: Pain, dental, Cracked tooth Disposition: HOME SELF-CARE Condition: Good Instructions (If sedation given, give patient instructions): Dental Abscess (ED), Toothache (ED) Additional Instructions: Please use medication as discussed. Please follow-up with dentist in next 2-3 days. Return for swelling below tongue, neck, fevers. Please return to emergency room if the symptoms increase or worsen or for any other concerns. Prescriptions: Amoxicillin/Potassium Clav [Augmentin 875-125 Tablet] 1 tab PO Q12HR 7 Days #14 tab Is patient prescribed a controlled substance at d/c from ED?: No Referrals: None,Stated [Primary Care Provider] - 1-2 days Time of Disposition: 17:36
[2020-04-02 17:47] VITALS: BP 116/64; PULSE 78
== END 2020-04-02 17:47 | disposition home or self-care (01) ==
LOC: EC 17:10
DX: K03.81 Cracked tooth (principal); K08.89 Other specified disorders of teeth and supporting structures; Z91.09 Other allergy status, other than to drugs and biological substances
CPT/HCPCS: 99282

== ENCOUNTER 2022-02-18 11:04 | Emergency (ER) | payer OTHER ==
[2022-02-18 11:17] VITALS: BP 116/76; PULSE 62; RESP 20; TEMP 98.1
--- NOTE | 2022-02-18 11:47 | ED ---
General Adult HPI - General Chief complaint: ENT Stated complaint: ear pain Time Seen by Provider: 02/18/22 11:21 Source: patient Mode of arrival: ambulatory Limitations: no limitations - History of Present Illness Initial comments: Dictation was produced using [employer] dictation software. please excuse any grammatical, word or spelling errors. Chief Complaint: 27-year-old male presents with left ear pain History of Present Illness: Patient 27-year-old male presents emergency Department 3 days of left ear pain. Patient is a swimmer. He states that he has pain to his left ear. Feels like it's in the back. It's worse with movement. Denies any fever, chills or night sweats. The ROS documented in this emergency department record has been reviewed and confirmed by me. Those systems with pertinent positive or negative responses have been documented in the HPI. All other systems are other negative and/or noncontributory. PHYSICAL EXAM: General Impression: Alert and oriented x3, not in acute distress HEENT: Normocephalic atraumatic, extra-ocular movements intact, pupils equal and reactive to light bilaterally, mucous membranes moist. Left ear: All erythema to the posterior aspect of the external auditory canal, TM is clear Cardiovascular: Heart regular rate and rhythm Chest: Able to complete full sentences, no retractions, no tachypnea Musculoskeletal: no peripheral edema Motor: no focal deficits noted Neurological: CN II-XII grossly intact, no focal motor or sensory deficits noted Skin: Intact with no visualized rashes Psych: Normal affect and mood ED course: 27-year-old male clinical presentation consistent with otitis externa. Vital signs upon arrival are within acceptable limits. Patient given antibiotic eardrops discharge. Nursing notes and chart review was performed - Related Data Previous Rx's Medication Instructions Recorded Amoxicillin 875 mg PO Q12HR #20 tablet 10/03/21 Ofloxacin 0.3% Otic Soln [Floxin 5 drops LEFT EAR BID 7 Days #1 02/18/22 0.3% Otic Soln] dispenser Allergies Allergy/AdvReac Type Severity Reaction Status Date / Time cadex Allergy Rash/Hives Uncoded 02/18/22 11:16 Review of Systems ROS Statement: Those systems with pertinent positive or pertinent negative responses have been documented in the HPI. ROS Other: All systems not noted in ROS Statement are negative. Past Medical History Past Medical History: No Reported History History of Any Multi-Drug Resistant Organisms: None Reported Past Surgical History: No Surgical Hx Reported Past Psychological History: No Psychological Hx Reported Smoking Status: Current every day smoker Past Alcohol Use History: Occasional Past Drug Use History: Marijuana General Exam Limitations: no limitations Course Vital Signs 02/18/22 11:14 Temperature 98.1 F Pulse Rate 62 Respiratory 20 Rate Blood Pressure 116/76 O2 Sat by Pulse 97 Oximetry Disposition Clinical Impression: Otitis externa Disposition: HOME SELF-CARE Condition: Good Instructions (If sedation given, give patient instructions): Earache (ED), Swimmer's Ear (ED) Prescriptions: Ofloxacin 0.3% Otic Soln [Floxin 0.3% Otic Soln] 5 drops LEFT EAR BID 7 Days #1 dispenser Is patient prescribed a controlled substance at d/c from ED?: No Referrals: None,Stated [Primary Care Provider] - 1-2 days Time of Disposition: 11:43
[2022-02-18] MEDS ORDERED: ACETAMINOPHEN TAB 500 MG TAB PO STA (12:06)
== END 2022-02-18 12:20 | disposition home or self-care (01) ==
LOC: EC 11:04
DX: H60.92 Unspecified otitis externa, left ear (principal); F17.200 Nicotine dependence, unspecified, uncomplicated; F12.90 Cannabis use, unspecified, uncomplicated; Z88.5 Allergy status to narcotic agent
CPT/HCPCS: 99283

== ENCOUNTER 2022-03-01 21:48 | Emergency (ER) | payer OTHER ==
[2022-03-01] MEDS ORDERED: SODIUM CHLORIDE 0.9% 1,000 ML IV STA (22:19)
[2022-03-01] MEDS ORDERED: methylPREDNISolone SOD SUCCI 125 MG/2 ML VIAL IV STA (22:19)
--- NOTE | 2022-03-01 22:26 | ED ---
ENT HPI - General Source: patient Mode of arrival: ambulatory Limitations: no limitations <Arlene Morton - Last Filed: 03/01/22 23:46> <Quoc Hernandez - Last Filed: 03/02/22 13:56> - General Chief complaint: ENT Stated complaint: sore throat Time Seen by Provider: 03/01/22 22:14 - History of Present Illness Initial comments: Patient is a 27-year-old male presenting to the emergency room with complaints of sore throat with tonsillar swelling, body aches, hot and cold flashes along with nausea and vomiting all ongoing for approximately 3 days. He reports that last night he had significant shortness of breath and felt as though he couldn't get in a deep breath which cause a panic attack. He reports some difficulty in getting a deep breath due to tonsillar edema. He also complains of a headache. He denies any abdominal pain. He reports that he took Aleve approximately 2 hours before arrival to the emergency room for pain and fever. He denies any known exposure to COVID, influenza or Streptococcus. He has no significant past medical history and does not take any medications on a regular basis. (Arlene Morton) - Related Data Previous Rx's Medication Instructions Recorded Amoxicillin 875 mg PO Q12HR #20 tablet 10/03/21 Ofloxacin 0.3% Otic Soln [Floxin 5 drops LEFT EAR BID 7 Days #1 02/18/22 0.3% Otic Soln] dispenser methylPREDNISolone Dose Pack 4 mg PO DIRECTED #21 tab 03/01/22 [Medrol Dose Pack] methylPREDNISolone Dose Pack 4 mg PO DIRECTED #1 packet 03/02/22 [Medrol Dose Pack] Allergies Allergy/AdvReac Type Severity Reaction Status Date / Time cadex Allergy Rash/Hives Uncoded 03/01/22 21:58 Review of Systems ROS Other: All systems not noted in ROS Statement are negative. <Arlene Morton - Last Filed: 03/01/22 23:46> ROS Other: All systems not noted in ROS Statement are negative. <Quoc Hernandez - Last Filed: 03/02/22 13:56> ROS Statement: Those systems with pertinent positive or pertinent negative responses have been documented in the HPI. Past Medical History Past Medical History: No Reported History Additional Past Medical History / Comment(s): psoriasis History of Any Multi-Drug Resistant Organisms: None Reported Past Surgical History: No Surgical Hx Reported Past Psychological History: No Psychological Hx Reported Smoking Status: Former smoker Past Alcohol Use History: None Reported Past Drug Use History: Marijuana <ColrainArlene - Last Filed: 03/01/22 23:46> General Exam Limitations: no limitations <Arlene Morton - Last Filed: 03/01/22 23:46> - General Exam Comments Initial Comments: GENERAL: No acute distress, well developed, well nourished. HEENT: Normocephalic, atraumatic. Pupils equal, round, reactive to light. Moist mucous membranes. Bilateral tonsillar edema with exudate noted to right tonsil airway restricted but patent. Bilateral serous otitis media effusions. Shotty lymphadenopathy. LUNGS: No respiratory distress. Clear to auscultation, no adventitious sounds, no use of accessory muscles. HEART: Regular rate and rhythm without murmur, rub, or gallop. ABDOMEN: Normal bowel sounds. Soft, non-tender, non-distended. BACK: Normal inspection. EXTREMITIES: No edema. No tenderness. Moves all extremities. NEUROLOGIC: Alert & oriented x 3. CN II-XII grossly intact. PSYCHIATRIC: Normal affect and behavior. DERMATOLOGIC: Skin intact, without rashes or lesions noted. (SeleneArlene) Course Vital Signs 03/01/22 03/01/22 21:58 23:59 Temperature 100.2 F H 100 F H Pulse Rate 80 72 Respiratory 16 18 Rate Blood Pressure 117/76 122/71 O2 Sat by Pulse 98 98 Oximetry Medical Decision Making <Arlene Morton - Last Filed: 03/01/22 23:46> <Quoc Hernandez - Last Filed: 03/02/22 13:56> - Medical Decision Making Was pt. sent in by a medical professional or institution (, PA, PLATER SUPERVISOR, urgent care, hospital, or prison...) When possible be specific @ -No Did you speak to anyone other than the patient for history (EMS, parent, family, police, friend...)? What history was obtained from this source @ -No Did you review nursing and triage notes (agree or disagree)? Why? @ -I reviewed and agree with nursing and triage notes Were old charts reviewed (outside hosp., previous admission, EMS record, old EKG, old radiological studies, urgent care reports/EKG's, prison records)? Report findings @ -No old charts were reviewed Differential Diagnosis (chest pain, altered mental status, abdominal pain women, abdominal pain men, vaginal bleeding, weakness, fever, dyspnea, syncope, headache, dizziness, GI bleed, back pain, seizure, CVA, palpatations, mental health)? @ -Differential Fever: Pneumonia, viral URI, endocarditis, myocarditis, pericarditis, otitis, sinusitis, peritonsillar Abscess, retropharyngeal Abscess, epiglottitis, peritonitis, appendicitis, Kandice cystitis, diverticulitis, hepatitis, colitis, UTI, PID, TOA, pyelonephritis, prostatitis, epididymitis, meningitis, encephalitis, pulmonary embolism, CVA, thyroid storm, pancreatitis, adrenal crisis, cavernous sinus thrombosis, this is not meant to be an all-inclusive list. EKG interpreted by me (3pts min.). @ -None done X-rays interpreted by me (1pt min.). @ -None done CT interpreted by me (1pt min.). @ -None done U/S interpreted by me (1pt. min.). @ -None done What testing was considered but not performed or refused? (CT, X-rays, U/S, labs)? Why? @ -None What meds were considered but not given or refused? Why? @ -NSAIDs considered but deferred due to Aleve taken to her prior to arrival Did you discuss the management of the patient with other professionals (professionals i.e. , PA, PLATER SUPERVISOR, lab, RT, psych nurse, older adult social work specialist, real estate director, teacher, custom protection officer, case manager specialist)? Give summary @ -No Was smoking cessation discussed for >3mins.? @ -No Was critical care preformed (if so, how long)? @ -No Were there social determinants of health that impacted care today? How? (Homelessness, low income, unemployed, alcoholism, drug addiction, transportation, low edu. Level, literacy, decrease access to med. care, fci, rehab)? @ -No Was there de-escalation of care discussed even if they declined (Discuss DNR or withdrawal of care, Hospice)? DNR status @ -No What co-morbidities impacted this encounter? (DM, HTN, Smoking, COPD, CAD, Cancer, CVA, ARF, Chemo, Hep., AIDS, mental health diagnosis, sleep apnea, morbid obesity)? @ -None Was patient admitted / discharged? Hospital course, mention meds given and route, prescriptions, significant lab abnormalities, going to OR and other pertinent info. @ -27-year-old male presenting with sore throat, nausea, vomiting, fevers, chills and headache ongoing for approximately 3 days with significant tonsillar edema and exudate noted to the right tonsil high probability for strep. Increased difficulty in breathing due to tonsillar edema. Will give IV hydration along with IV steroids and monitor response. Will obtain viral swabs for COVID, influenza and RSV along with throat swab for strep today. Undiagnosed new problem with uncertain prognosis? @ -No Drug Therapy requiring intensive monitoring for toxicity (Heparin, Nitro, Insulin, Cardizem)? @ -No Were any procedures done? @ -No Diagnosis/symptom? @ -default Acute, or Chronic, or Acute on Chronic? @ -default Uncomplicated (without systemic symptoms) or Complicated (systemic symptoms)? @ -default Side effects of treatment? @ -No Exacerbation, Progression, or Severe Exacerbation? @ -No Poses a threat to life or bodily function? How? (Chest pain, [place], [place], pneumonia, PE, COPD, DKA, ARF, appy, cholecystitis, CVA, Diverticulitis, Homicidal, Suic idal, threat to staff... and all critical care pts) @ -No (Arlene Morton) I was asked to send the prescription to differentpharmacy that had been entered. No other interaction (Quoc Hernandez) - Lab Data Lab Results 03/01/22 03/01/22 Range/Units 22:29 22:29 Influenza Type A (PCR) Not Detected (Not Detectd) Influenza Type B (PCR) Not Detected (Not Detectd) RSV (PCR) Not Detected (Not Detectd) SARS-CoV-2 (PCR) Not Detected (Not Detectd) Group A Strep (PCR) NOT DETECTED (Not Detectd) Disposition Is patient prescribed a controlled substance at d/c from ED?: No Time of Disposition: 23:47 <Arlene Morton - Last Filed: 03/01/22 23:46> <Quoc Hernandez - Last Filed: 03/02/22 13:56> Clinical Impression: Tonsillitis Disposition: HOME SELF-CARE Condition: Stable Instructions (If sedation given, give patient instructions): Tonsillitis (ED) Additional Instructions: Please complete steroid Dosepak as prescribed to help reduce tonsillar swelling. Drink plenty of fluids. Take Tylenol as needed for fevers while taking steroids. Please stay off work until 24 hours fever free without the use of fever reducing agents. Please follow-up with your primary care provider. Please return to the Emergency Department if symptoms worsen or any other concerns. Prescriptions: methylPREDNISolone Dose Pack [Medrol Dose Pack] 4 mg PO DIRECTED #21 tab methylPREDNISolone Dose Pack [Medrol Dose Pack] 4 mg PO DIRECTED #1 packet Referrals: None,Stated [Primary Care Provider] - 1-2 days
[2022-03-02] VITALS: BP 122/71; PULSE 72; RESP 18; TEMP 100
== END 2022-03-02 | disposition home or self-care (01) ==
LOC: EC 21:48
DX: J03.90 Acute tonsillitis, unspecified (principal); Z87.891 Personal history of nicotine dependence; F12.90 Cannabis use, unspecified, uncomplicated; Z91.040 Latex allergy status; Z20.822 Contact with and (suspected) exposure to COVID-19
CPT/HCPCS: 87651; 87636; 99283; 96374; 96361; J2930

== ENCOUNTER 2022-04-27 21:58 | Emergency (ER) | payer OTHER ==
[2022-04-27 22:24] VITALS: RESP 16; TEMP 98.9
--- NOTE | 2022-04-27 23:22 | ED ---
General Adult HPI - General Chief complaint: Abdominal Pain Stated complaint: Upset Stomach Time Seen by Provider: 04/27/22 23:13 Source: patient Mode of arrival: ambulatory Limitations: no limitations - History of Present Illness Initial comments: Patient presents to the ED with his boyfriend for evaluation. Patient states that he has had epigastric abdominal pain, nausea/vomiting and a headache for the past 2 days. Patient states that he missed work yesterday, and he will be missing work again tonight due to these symptoms, and he is requesting a work note for today and tomorrow. Patient denies sudden onset of headache, trauma or injury, LOC, focal numbness/weakness/neuro deficit, visual changes, fever or chills, neck stiffness, chest pain, dyspnea, cough or cold symptoms, dizziness, back or flank pain, diarrhea or constipation, bloody or melanotic stool, hematemesis, dysuria or urinary symptoms, or any other symptoms or complaints. - Related Data Previous Rx's Medication Instructions Recorded Amoxicillin/Potassium Clav 1 tab PO BID 10 Days #20 tab 04/23/22 [Amox-Clav 875-125 mg Tablet] Allergies Allergy/AdvReac Type Severity Reaction Status Date / Time cadex Allergy Rash/Hives Uncoded 04/27/22 22:24 Review of Systems ROS Statement: Those systems with pertinent positive or pertinent negative responses have been documented in the HPI. ROS Other: All systems not noted in ROS Statement are negative. Past Medical History Past Medical History: No Reported History Additional Past Medical History / Comment(s): psoriasis History of Any Multi-Drug Resistant Organisms: None Reported Past Surgical History: No Surgical Hx Reported Past Psychological History: No Psychological Hx Reported Smoking Status: Former smoker Past Alcohol Use History: None Reported Past Drug Use History: Marijuana General Exam Limitations: no limitations General appearance: alert, in no apparent distress Head exam: Present: atraumatic, normocephalic Eye exam: Present: normal appearance, PERRL, EOMI ENT exam: Present: mucous membranes moist Neck exam: Present: other (No nuchal rigidity or meningeal signs are present on exam). Absent: tenderness, meningismus Respiratory exam: Present: normal lung sounds bilaterally. Absent: respiratory distress, wheezes, rales, rhonchi, stridor Cardiovascular Exam: Present: regular rate, normal rhythm, normal heart sounds, other (Normal radial pulses bilaterally) GI/Abdominal exam: Present: soft, normal bowel sounds, other (Mild epigastric abdominal tenderness). Absent: distended, guarding, rebound Extremities exam: Absent: pedal edema Back exam: Absent: CVA tenderness (R), CVA tenderness (L) Neurological exam: Present: alert, oriented X3, CN II-XII intact. Absent: motor sensory deficit Psychiatric exam: Present: normal affect, normal mood Skin exam: Present: warm, dry, intact, normal color Course Vital Signs 04/27/22 22:20 Temperature 98.9 F Pulse Rate 66 Respiratory 16 Rate Blood Pressure 142/87 O2 Sat by Pulse 97 Oximetry - Reevaluation(s) Reevaluation #1: 04/28/22 00:27 Patient states that his symptoms have improved with ED treatment. Patient denies development of any new symptoms while in the ED. Patient remains alert and breathing comfortably. Patient continues to have a soft and nonsurgical abdominal exam. Patient and boyfriend are aware of the patient's test results, and patient feels comfortable being discharged home with his boyfriend at this time. Patient was counseled about headaches, abdominal pain and nausea/vomiting. Patient was provided with a work note for today and tomorrow per his request. Patient was clearly explained return and follow-up instructions, and he feels comfortable with this plan. Patient was instructed to follow up closely with his primary care provider. Medical Decision Making - Medical Decision Making Was pt. sent in by a medical professional or institution ([facility] Lopez, HEALTH TECHNICIAN HEARING, urgent care, hospital, or [facility]...) When possible be specific @ -[No] Did you speak to anyone other than the patient for history (EMS, parent, family, police, friend...)? What history was obtained from this source @ -[No] Did you review nursing and triage notes (agree or disagree)? Why? @ -[I reviewed and agree with nursing and triage notes] Were old charts reviewed (outside hosp., previous admission, EMS record, old EKG, old radiological studies, urgent care reports/EKG's, [facility] records)? Report findings @ -[No old charts were reviewed] Differential Diagnosis (chest pain, altered mental status, abdominal pain women, abdominal pain men, vaginal bleeding, weakness, fever, dyspnea, syncope, headache, dizziness, GI bleed, back pain, seizure, CVA, palpatations, mental health, musculoskeletal)? @ -Differential Abdominal Pain Men: Cholecystitis, gastritis, GERD, biliary colic, pancreatitis, hepatitis, gastroenteritis, bowel obstruction, constipation, inflammatory bowel, peptic ulcer disease, nausea, vomiting, viral illness, food poisoning, headache, mi graine, this is not meant to be an all-inclusive list EKG interpreted by me (3pts min.). @ -[None done] X-rays interpreted by me (1pt min.). @ -[None done] CT interpreted by me (1pt min.). @ -[None done] U/S interpreted by me (1pt. min.). @ -[None done] What testing was considered but not performed or refused? (CT, X-rays, U/S, labs)? Why? @ -[None] What meds were considered but not given or refused? Why? @ -[None] Did you discuss the management of the patient with other professionals (professionals i.e. , PA, HEALTH TECHNICIAN HEARING, lab, RT, psych nurse, director of social media marketing, bilingual administrative assistant, teacher, amphibious operations officer, pillowcase sewer)? Give summary @ -[No] Was smoking cessation discussed for >3mins.? @ -[No] Was critical care preformed (if so, how long)? @ -[No] Were there social determinants of health that impacted care today? How? (Homelessness, low income, unemployed, alcoholism, drug addiction, transportation, low edu. Level, literacy, decrease access to med. care, usp, rehab)? @ -[No] Was there de-escalation of care discussed even if they declined (Discuss DNR or withdrawal of care, Hospice)? DNR status @ -[No] What co-morbidities impacted this encounter? (DM, HTN, Smoking, COPD, CAD, Cancer, CVA, ARF, Chemo, Hep., AIDS, mental health diagnosis, sleep apnea, morbid obesity)? @ -[None] Was patient admitted / discharged? Hospital course, mention meds given and route, prescriptions, significant lab abnormalities, going to OR and other pertinent info. @ -[Patient's symptoms have improved with ED treatment. Patient is afebrile and without leukocytosis. Patient has a soft and nonsurgical abdominal exam. Patient's labs are unremarkable. I do not suspect an emergent medical or surgical condition at this time. Will discharge patient home with his boyfriend at this time. Patient feels comfortable with this plan. Patient was instructed to follow up closely with his primary care provider. Patient was clearly explained return and follow-up instructions.] Undiagnosed new problem with uncertain prognosis? @ -[No] Drug Therapy requiring intensive monitoring for toxicity (Heparin, Nitro, Insulin, Cardizem)? @ -[No] Were any procedures done? @ -[No] Diagnosis/symptom? @ -[Abdominal pain] Acute, or Chronic, or Acute on Chronic? @ -Acute Uncomplicated (without systemic symptoms) or Complicated (systemic symptoms)? @ -[default] Side effects of treatment? @ -[No] Exacerbation, Progression, or Severe Exacerbation? @ -[No] Poses a threat to life or bodily function? How? (Chest pain, [place], [place], pneumonia, PE, COPD, DKA, ARF, appy, cholecystitis, CVA, Diverticulitis, Homicidal, Suicidal, threat to staff... and all critical care pts) @ -[No] Diagnosis/symptom? @ -Nausea and vomiting Acute, or Chronic, or Acute on Chronic? @ -Acute Uncomplicated (without systemic symptoms) or Complicated (systemic symptoms)? @ -[default] Side effects of treatment? @ -[none] Exacerbation, Progression, or Severe Exacerbation] @ -[no] Poses a threat to life or bodily function? @ -[no] Diagnosis/symptom? @ -Headache Acute, or Chronic, or Acute on Chronic? @ -Acute Uncomplicated (without systemic symptoms) or Complicated (systemic symptoms)? @ -[default] Side effects of treatment? @ -[none] Exacerbation, Progression, or Severe Exacerbation] @ -[no] Poses a threat to life or bodily function? @ -[no] - Lab Data Result diagrams: 04/27/22 23:50 04/27/22 23:50 Lab Results 04/27/22 04/27/22 Range/Units 23:50 23:50 WBC 6.4 (3.8-10.6) k/uL RBC 4.86 (4.30-5.90) m/uL Hgb 14.2 (13.0-17.5) gm/dL Hct 41.2 (39.0-53.0) % MCV 84.7 (80.0-100.0) fL MCH 29.2 (25.0-35.0) pg MCHC 34.4 (31.0-37.0) g/dL RDW 12.6 (11.5-15.5) % Plt Count 232 (150-450) k/uL MPV 7.9 Neutrophils % 42 % Lymphocytes % 48 % Monocytes % 6 % Eosinophils % 2 % Basophils % 0 % Neutrophils # 2.7 (1.3-7.7) k/uL Lymphocytes # 3.1 (1.0-4.8) k/uL Monocytes # 0.4 (0-1.0) k/uL Eosinophils # 0.1 (0-0.7) k/uL Basophils # 0.0 (0-0.2) k/uL Sodium 138 (137-145) mmol/L Potassium 4.1 (3.5-5.1) mmol/L Chloride 104 (98-107) mmol/L Carbon Dioxide 26 (22-30) mmol/L Anion Gap 8 mmol/L BUN 17 (9-20) mg/dL Creatinine 0.67 (0.66-1.25) mg/dL Est GFR (CKD-EPI)AfAm >90 (>60 ml/min/1.73 sqM) Est GFR (CKD-EPI)NonAf >90 (>60 ml/min/1.73 sqM) Glucose 96 (74-99) mg/dL Calcium 8.6 (8.4-10.2) mg/dL Total Bilirubin 0.3 (0.2-1.3) mg/dL AST 22 (17-59) U/L ALT 22 (4-49) U/L Alkaline Phosphatase 63 (38-126) U/L Total Protein 6.8 (6.3-8.2) g/dL Albumin 4.2 (3.5-5.0) g/dL Lipase 56 (23-300) U/L Disposition Clinical Impression: Headache, Abdominal pain, Nausea and vomiting Disposition: HOME SELF-CARE Condition: Stable Instructions (If sedation given, give patient instructions): Abdominal Pain (ED), Acute Nausea and Vomiting (ED), Acute Headache (ED) Additional Instructions: Return to the ER immediately should you develop new or worsening pain, persistent vomiting, a fever, feeling dizzy or faint, shortness of breath, numbness or weakness, neck stiffness, or new or worsening symptoms. Follow up closely with your primary care provider. Is patient prescribed a controlled substance at d/c from ED?: No Referrals: None,Stated [Primary Care Provider] - 1-2 days Ceferino Kim MD [STAFF PHYSICIAN] - 1-2 days Time of Disposition: 00:32
[2022-04-27] MEDS ORDERED: SODIUM CHLORIDE 0.9% 1,000 ML IV STA (23:29)
[2022-04-27] MEDS ORDERED: KETOROLAC 15 MG/ML 1 ML VIAL IVP STA (23:29)
[2022-04-27] MEDS ORDERED: diphenhydrAMINE 50 MG/ML 1 ML VIAL IVP STA (23:29)
[2022-04-27] MEDS ORDERED: METOCLOPRAMIDE 5 MG/ML 2 ML VIAL IVP STA (23:29)
[2022-04-28 00:02] LABS: Basophils % (A) 0 %; Eosinophils # (A) 0.1 k/uL (0-0.7); Eosinophils % (A) 2 %; HCT 41.2 % (39.0-53.0); HGB 14.2 gm/dL (13.0-17.5); Lymphocytes # (A) 3.1 k/uL (1.0-4.8); Lymphocytes % (A) 48 %; MCH 29.2 pg (25.0-35.0); MCHC 34.4 g/dL (31.0-37.0); MCV 84.7 fL (80.0-100.0); Mean Platelet Volume 7.9; Monocytes # (A) 0.4 k/uL (0-1.0); Monocytes % (A) 6 %; Neutrophils # (A) 2.7 k/uL (1.3-7.7); Neutrophils % (A) 42 %; Platelet Count 232 k/uL (150-450); RBC 4.86 m/uL (4.30-5.90); RDW 12.6 % (11.5-15.5); WBC 6.4 k/uL (3.8-10.6)
[2022-04-28 00:16] LABS: ALT 22 U/L (4-49); AST 22 U/L (17-59); African American GFR (CKD) >90 (>60 ml/min/1.73 sqM); Albumin 4.2 g/dL (3.5-5.0); Alkaline Phosphatase 63 U/L (38-126); Anion Gap 8 mmol/L; Blood Urea Nitrogen 17 mg/dL (9-20); Calcium 8.6 mg/dL (8.4-10.2); Carbon Dioxide 26 mmol/L (22-30); Chloride 104 mmol/L (98-107); Glucose 96 mg/dL (74-99); Lipase 56 U/L (23-300); Non-African American GFR(CKD) >90 (>60 ml/min/1.73 sqM); Potassium 4.1 mmol/L (3.5-5.1); Sodium 138 mmol/L (137-145); Total Bilirubin 0.3 mg/dL (0.2-1.3); Total Protein 6.8 g/dL (6.3-8.2)
[2022-04-28] MEDS ORDERED: ONDANSETRON 4 MG ODT STARTER PACK 2 TAB BTL PO STA (00:32)
[2022-04-28 01:18] VITALS: BP 138/75; PULSE 55
== END 2022-04-28 01:00 | disposition home or self-care (01) ==
LOC: EC 21:58
DX: R10.13 Epigastric pain (principal); R11.2 Nausea with vomiting, unspecified; R51.9 Headache, unspecified; F12.90 Cannabis use, unspecified, uncomplicated; Z88.8 Allergy status to other drugs, medicaments and biological substances; Z87.891 Personal history of nicotine dependence
CPT/HCPCS: 36415; 80053; 83690; 85025; 99284; 96374; 96375; 96361; J1200; J2765; J1885

== ENCOUNTER 2022-05-07 16:29 | Emergency (ER) | payer OTHER ==
--- NOTE | 2022-05-07 16:59 | ED ---
General Adult HPI - General Stated complaint: eye edema Time Seen by Provider: 05/07/22 16:55 Source: RN notes reviewed - History of Present Illness Initial comments: Patient is a 27-year-old male who presents to the emergency department for swelling around his left eye. He noticed it this morning. He denies eye injury. Denies eye pain, blurry and double vision. Denies fever, chills, cold-like symptoms. Patient was just at the dentist for a tooth removal prior to arrival. He is not on any antibiotics currently. No new medication. No history of seasonal ALLERGIES. No use of new soaps or hygiene products. - Related Data Previous Rx's Medication Instructions Recorded Amoxicillin/Potassium Clav 1 tab PO BID 10 Days #20 tab 04/23/22 [Amox-Clav 875-125 mg Tablet] Ibuprofen [Motrin] 600 mg PO Q8HR PRN #30 tab 05/07/22 Allergies Allergy/AdvReac Type Severity Reaction Status Date / Time cadex Allergy Rash/Hives Uncoded 05/07/22 17:40 Review of Systems ROS Statement: Those systems with pertinent positive or pertinent negative responses have been documented in the HPI. ROS Other: All systems not noted in ROS Statement are negative. Past Medical History Past Medical History: No Reported History Additional Past Medical History / Comment(s): psoriasis History of Any Multi-Drug Resistant Organisms: None Reported Past Surgical History: No Surgical Hx Reported Past Psychological History: No Psychological Hx Reported Smoking Status: Former smoker Past Alcohol Use History: None Reported Past Drug Use History: Marijuana General Exam - General Exam Comments Initial Comments: Visual Physical Exam Vital signs reviewed General: Well-appearing, nontoxic, no acute distress. Head: Normocephalic, atraumatic Eyes: PERRLA, EOMI ENT: Airway patent Chest: Nonlabored breathing Skin: No visual rash, normal skin tone Neuro: Alert and oriented 3 Musculoskeletal: No gross abnormalities General appearance: alert, in no apparent distress Eye exam: Present: normal appearance, PERRL, EOMI, other (mild swelling and erythema of left eyelid concerning for stye). Absent: scleral icterus, conjunctival injection ENT exam: Present: normal oropharynx Respiratory exam: Present: normal lung sounds bilaterally. Absent: respiratory distress, wheezes, rales, rhonchi, stridor Cardiovascular Exam: Present: regular rate, normal rhythm, normal heart sounds. Absent: systolic murmur, diastolic murmur, rubs, gallop, clicks Neurological exam: Present: alert, oriented X3, CN II-XII intact Psychiatric exam: Present: normal affect, normal mood Skin exam: Present: warm, dry, intact, normal color. Absent: rash Course Vital Signs 05/07/22 17:36 Temperature 98.5 F Pulse Rate 53 L Respiratory 16 Rate Blood Pressure 105/72 O2 Sat by Pulse 99 Oximetry Medical Decision Making - Medical Decision Making Was pt. sent in by a medical professional or institution (, [facility], ARCHITECTURE PROFESSOR, urgent care, hospital, or [facility]...) When possible be specific @ -No Did you speak to anyone other than the patient for history (EMS, parent, family, police, friend...)? What history was obtained from this source @ -No Did you review nursing and triage notes (agree or disagree)? Why? @ -I reviewed and agree with nursing and triage notes Were old charts reviewed (outside hosp., previous admission, EMS record, old EKG, old radiological studies, urgent care reports/EKG's, [facility] records)? Report findings @ -No old charts were reviewed Differential Diagnosis (chest pain, altered mental status, abdominal pain women, abdominal pain men, vaginal bleeding, weakness, fever, dyspnea, syncope, headache, dizziness, GI bleed, back pain, seizure, CVA, palpatations, mental health)? @ -stye, orbital cellulitis, preseptal cellulitis EKG interpreted by me (3pts min.). @ -As above X-rays interpreted by me (1pt min.). @ -None done CT interpreted by me (1pt min.). @ -None done U/S interpreted by me (1pt. min.). @ -None done What testing was considered but not performed or refused? (CT, X-rays, U/S, labs)? Why? @ -None What meds were considered but not given or refused? Why? @ -None Did you discuss the management of the patient with other professionals (professionals i.e. ILENE Lopez, ARCHITECTURE PROFESSOR, lab, RT, psych nurse, social services specialist, weight guesser, teacher, commanding officer garage, employment case manager)? Give summary @ -No Was smoking cessation discussed for >3mins.? @ -No Was critical care preformed (if so, how long)? @ -No Were there social determinants of health that impacted care today? How? (Homelessness, low income, unemployed, alcoholism, drug addiction, transportation, low edu. Level, literacy, decrease access to med. care, half-way, rehab)? @ -No Was there de-escalation of care discussed even if they declined (Discuss DNR or withdrawal of care, Hospice)? DNR status @ -No What co-morbidities impacted this encounter? (DM, HTN, Smoking, COPD, CAD, Cancer, CVA, ARF, Chemo, Hep., AIDS, mental health diagnosis, sleep apnea, morbid obesity)? @ -None Was patient admitted / discharged? Hospital course, mention meds given and route, prescriptions, significant lab abnormalities, going to OR and other pertinent info. @ -Patient presenting for evaluation of eyelid swelling. There is mild swelling and redness of the left eyelid. There is no involvement of the actual eye. No periorbital swelling. No systemic symptoms. It does appear the patient has stye. Patient instructed to apply warm compress. Patient did have tooth removal for infection today although he was not placed on antibiotics. Patient will be placed on Augmentin. Undiagnosed new problem with uncertain prognosis? @ -No Drug Therapy requiring intensive monitoring for toxicity (Heparin, Nitro, Insulin, Cardizem)? @ -No Were any procedures done? @ -No Diagnosis/symptom? @ -stye Acute, or Chronic, or Acute on Chronic? @ -acute Uncomplicated (without systemic symptoms) or Complicated (systemic symptoms)? @ -uncomplicated Side effects of treatment? @ -No Exacerbation, Progression, or Severe Exacerbation? @ -No Poses a threat to life or bodily function? How? (Chest pain, [place], [place], pneumonia, PE, COPD, DKA, ARF, appy, cholecystitis, CVA, Diverticulitis, Homicidal, Suicidal, threat to staff... and all critical care pts) @ -No Dr. Hernandez is my attending Disposition Clinical Impression: Hordeolum of left eye Disposition: HOME SELF-CARE Condition: Good Instructions (If sedation given, give patient instructions): Dental Abscess (ED), Stye (ED), Toothache (ED) Additional Instructions: Take antibiotic as directed. Apply warm compress to eyelid. Follow-up with primary care provider in one to 2 days. Return to the emergency department if you experience, concerning, or worsening symptoms Prescriptions: Ibuprofen [Motrin] 600 mg PO Q8HR PRN #30 tab PRN Reason: Pain Is patient prescribed a controlled substance at d/c from ED?: No Referrals: None,Stated [Primary Care Provider] - 1-2 days
[2022-05-07 17:41] VITALS: BP 105/72; PULSE 53; RESP 16; TEMP 98.5
== END 2022-05-07 17:49 | disposition home or self-care (01) ==
LOC: EC 16:29
DX: H00.016 Hordeolum externum left eye, unspecified eyelid (principal); F12.90 Cannabis use, unspecified, uncomplicated; Z87.891 Personal history of nicotine dependence; Z88.8 Allergy status to other drugs, medicaments and biological substances
CPT/HCPCS: 99283

== ENCOUNTER 2022-05-13 23:36 | Emergency (ER) | payer OTHER ==
[2022-05-13 23:54] VITALS: BP 143/80; PULSE 67; RESP 14; TEMP 97.7
--- NOTE | 2022-05-14 00:03 | ED ---
General Adult HPI - General Chief complaint: Neuro Symptoms/Deficit Stated complaint: Numbness in hands Time Seen by Provider: 05/13/22 23:56 Source: patient, RN notes reviewed, old records reviewed Mode of arrival: ambulatory Limitations: no limitations - History of Present Illness Initial comments: 27-year-old male with bilateral hand numbness. This has been progressive over the past one week. The patient started a new job where he holds his hands over his head for extended periods of time. No weakness reported. No speech abnormality. No symptoms in his legs. No chest pain or dyspnea. - Related Data Previous Rx's Medication Instructions Recorded Amoxicillin/Potassium Clav 1 tab PO BID 10 Days #20 tab 04/23/22 [Amox-Clav 875-125 mg Tablet] Ibuprofen [Motrin] 600 mg PO Q8HR PRN #30 tab 05/07/22 Allergies Allergy/AdvReac Type Severity Reaction Status Date / Time cadex Allergy Rash/Hives Uncoded 05/07/22 17:40 Review of Systems ROS Statement: Those systems with pertinent positive or pertinent negative responses have been documented in the HPI. ROS Other: All systems not noted in ROS Statement are negative. Past Medical History Past Medical History: No Reported History Additional Past Medical History / Comment(s): psoriasis History of Any Multi-Drug Resistant Organisms: None Reported Past Surgical History: No Surgical Hx Reported Past Psychological History: No Psychological Hx Reported Smoking Status: Former smoker Past Alcohol Use History: None Reported Past Drug Use History: Marijuana General Exam Limitations: no limitations General appearance: alert, in no apparent distress Head exam: Present: atraumatic, normocephalic Eye exam: Present: normal appearance, PERRL ENT exam: Present: normal exam Neck exam: Present: normal inspection. Absent: tenderness, meningismus Respiratory exam: Present: normal lung sounds bilaterally. Absent: respiratory distress, wheezes Cardiovascular Exam: Present: regular rate, normal rhythm GI/Abdominal exam: Present: soft. Absent: distended, tenderness Extremities exam: Present: normal inspection, normal capillary refill, other (Bilateral radial pulses present, normal cap refill, normal sensation, normal strength in bilateral upper extremities). Absent: tenderness, joint swelling Course Vital Signs 05/13/22 23:50 Temperature 97.7 F Pulse Rate 67 Respiratory 14 Rate Blood Pressure 143/80 O2 Sat by Pulse 99 Oximetry Medical Decision Making - Medical Decision Making Was pt. sent in by a medical professional or institution ([facility] Lopez, AGRICULTURAL CONSULTANT, urgent care, hospital, or [facility]...) When possible be specific @ -No Did you speak to anyone other than the patient for history (EMS, parent, family, police, friend...)? What history was obtained from this source @ -No Did you review nursing and triage notes (agree or disagree)? Why? @ -I reviewed and agree with nursing and triage notes Were old charts reviewed (outside hosp., previous admission, EMS record, old EKG, old radiological studies, urgent care reports/EKG's, [facility] records)? Report findings @ -No old charts were reviewed Differential Diagnosis (chest pain, altered mental status, abdominal pain women, abdominal pain men, vaginal bleeding, weakness, fever, dyspnea, syncope, headache, dizziness, GI bleed, back pain, seizure, CVA, palpatations, mental health, musculoskeletal)? @ -Paresthesia, arterial occlusion, CVA, TIA EKG interpreted by me (3pts min.). @ -As above X-rays interpreted by me (1pt min.). @ -None done CT interpreted by me (1pt min.). @ -None done U/S interpreted by me (1pt. min.). @ -None done What testing was considered but not performed or refused? (CT, X-rays, U/S, l abs)? Why? @ -None What meds were considered but not given or refused? Why? @ -None Did you discuss the management of the patient with other professionals (professionals i.e. ILENE Lopez, AGRICULTURAL CONSULTANT, lab, RT, psych nurse, social media specialist, door to door selling distributor, teacher, special officer, case monitor)? Give summary @ -No Was smoking cessation discussed for >3mins.? @ -No Was critical care preformed (if so, how long)? @ -No Were there social determinants of health that impacted care today? How? (Homelessness, low income, unemployed, alcoholism, drug addiction, transportation, low edu. Level, literacy, decrease access to med. care, penitentiary, rehab)? @ -No Was there de-escalation of care discussed even if they declined (Discuss DNR or withdrawal of care, Hospice)? DNR status @ -No What co-morbidities impacted this encounter? (DM, HTN, Smoking, COPD, CAD, Cancer, CVA, ARF, Chemo, Hep., AIDS, mental health diagnosis, sleep apnea, morbid obesity)? @ -None Was patient admitted / discharged? Hospital course, mention meds given and route, prescriptions, significant lab abnormalities, going to OR and other pertinent info. @ -27-year-old male with bilateral hand numbness which is resolved. Likely related to the position that the patient is using at work. Exam is unremarkable. Patient should follow with his primary care physician. Undiagnosed new problem with uncertain prognosis? @ -No Drug Therapy requiring intensive monitoring for toxicity (Heparin, Nitro, Insulin, Cardizem)? @ -No Were any procedures done? @ -No Diagnosis/symptom? @ -Paresthesia Acute, or Chronic, or Acute on Chronic? @ -Acute Uncomplicated (without systemic symptoms) or Complicated (systemic symptoms)? @ -default Side effects of treatment? @ -No Exacerbation, Progression, or Severe Exacerbation? @ -No Poses a threat to life or bodily function? How? (Chest pain, [place], [place], pneumonia, PE, COPD, DKA, ARF, appy, cholecystitis, CVA, Diverticulitis, Homicidal, Suicidal, threat to staff... and all critical care pts) @ -No Disposition Clinical Impression: Paresthesia of both hands Disposition: HOME SELF-CARE Condition: Good Instructions (If sedation given, give patient instructions): Paresthesia (ED) Is patient prescribed a controlled substance at d/c from ED?: No Referrals: None,Stated [Primary Care Provider] - 1-2 days Emre Alaniz III, MD [STAFF PHYSICIAN] - 1-2 days Time of Disposition: 00:03
== END 2022-05-14 00:10 | disposition home or self-care (01) ==
LOC: EC 23:36
DX: R20.2 Paresthesia of skin (principal); F12.90 Cannabis use, unspecified, uncomplicated; Z87.891 Personal history of nicotine dependence
CPT/HCPCS: 99283

== ENCOUNTER 2022-05-26 18:27 | Emergency (ER) | payer OTHER ==
[2022-05-26 18:31] VITALS: BP 115/64; PULSE 64; RESP 18; TEMP 98.7
--- NOTE | 2022-05-26 18:57 | ED ---
Abdominal Pain HPI - General Chief Complaint: Abdominal Pain Stated Complaint: Abd Pain Time Seen by Provider: 05/26/22 18:53 Source: patient, RN notes reviewed Mode of arrival: ambulatory Limitations: no limitations - History of Present Illness Initial Comments: 27-year-old male presents emergency Department with chief complaint of nausea, vomiting diarrhea. Patient states that he's had contact with similar symptoms. Patient believes this is from food intake. He complains of mild abdominal cramping. Denies any bloody stools. Denies any hematemesis. Patient is requesting work no. - Related Data Previous Rx's Medication Instructions Recorded Amoxicillin/Potassium Clav 1 tab PO BID 10 Days #20 tab 04/23/22 [Amox-Clav 875-125 mg Tablet] Ibuprofen [Motrin] 600 mg PO Q8HR PRN #30 tab 05/07/22 Allergies Allergy/AdvReac Type Severity Reaction Status Date / Time cadex Allergy Rash/Hives Uncoded 05/07/22 17:40 Review of Systems ROS Statement: Those systems with pertinent positive or pertinent negative responses have been documented in the HPI. ROS Other: All systems not noted in ROS Statement are negative. Past Medical History Past Medical History: No Reported History Additional Past Medical History / Comment(s): psoriasis History of Any Multi-Drug Resistant Organisms: None Reported Past Surgical History: No Surgical Hx Reported Past Psychological History: No Psychological Hx Reported Smoking Status: Former smoker Past Alcohol Use History: None Reported Past Drug Use History: Marijuana General Exam Limitations: no limitations General appearance: alert, in no apparent distress Head exam: Present: atraumatic, normocephalic, normal inspection Eye exam: Present: normal appearance, PERRL, EOMI. Absent: scleral icterus, conjunctival injection, periorbital swelling ENT exam: Present: normal exam, normal oropharynx, mucous membranes moist Neck exam: Present: normal inspection, full ROM. Absent: tenderness, meningismus, lymphadenopathy Respiratory exam: Present: normal lung sounds bilaterally. Absent: respiratory distress, wheezes, rales, rhonchi, stridor Cardiovascular Exam: Present: regular rate, normal rhythm, normal heart sounds. Absent: systolic murmur, diastolic murmur, rubs, gallop, clicks GI/Abdominal exam: Present: soft, normal bowel sounds. Absent: distended, tenderness, guarding, rebound, rigid Course Vital Signs 05/26/22 18:28 Temperature 98.7 F Pulse Rate 64 Respiratory 18 Rate Blood Pressure 115/64 O2 Sat by Pulse 99 Oximetry Medical Decision Making - Medical Decision Making Was pt. sent in by a medical professional or institution (ILENE Lopez, INTERVENTION SPECIALIST, urgent care, hospital, or care home...) When possible be specific @ -No Did you speak to anyone other than the patient for history (EMS, parent, family, police, friend...)? What history was obtained from this source @ -No Did you review nursing and triage notes (agree or disagree)? Why? @ -I reviewed and agree with nursing and triage notes Were old charts reviewed (outside hosp., previous admission, EMS record, old EKG, old radiological studies, urgent care reports/EKG's, care home records)? Report findings @ -No old charts were reviewed Differential Diagnosis (chest pain, altered mental status, abdominal pain women, abdominal pain men, vaginal bleeding, weakness, fever, dyspnea, syncope, headache, dizziness, GI bleed, back pain, seizure, CVA, palpatations, mental health, musculoskeletal)? @ -Differential Abdominal Pain Men: Appendicitis, cholecystitis, diverticulosis, ischemic bowel, pancreatitis, hepatitis, UTI, gastroenteritis, AAA, incarcerated hernia, bowel obstruction, constipation, inflammatory bowel, hepatitis, peptic ulcer disease, splenic infarction, perforated viscus, testicular torsion, this is not meant to be an all-inclusive listble EKG interpreted by me (3pts min.). @ -None X-rays interpreted by me (1pt min.). @ -None done CT interpreted by me (1pt min.). @ -None done U/S interpreted by me (1pt. min.). @ -None done What testing was considered but not performed or refused? (CT, X-rays, U/S, labs)? Why? @ -Considered laboratory studies, IV fluids, antiemetics patient declined. What meds were considered but not given or refused? Why? @ -None Did you discuss the management of the patient with other professionals (professionals i.e. ILENE Lopez, INTERVENTION SPECIALIST, lab, RT, psych nurse, social security assessor, supervisor industrial garment, teacher, combat systems officer, case briefer)? Give summary @ -No Was smoking cessation discussed for >3mins.? @ -No Was critical care preformed (if so, how long)? @ -No Were there social determinants of health that impacted care today? How? (Homelessness, low income, unemployed, alcoholism, drug addiction, transportation, low edu. Level, literacy, decrease access to med. care, intermediate, rehab)? @ -No Was there de-escalation of care discussed even if they declined (Discuss DNR or withdrawal of care, Hospice)? DNR status @ -No What co-morbidities impacted this encounter? (DM, HTN, Smoking, COPD, CAD, Cancer, CVA, ARF, Chemo, Hep., AIDS, mental health diagnosis, sleep apnea, morbid obesity)? @ -None Was patient admitted / discharged? Hospital course, mention meds given and route, prescriptions, significant lab abnormalities, going to OR and other pertinent info. @ -Discharge patient was offered laboratory studies, IV fluids and antiemetics and further evaluation patient declined stating he just wants a work no. He understands risk of leaving return parameters were discussed. Undiagnosed new problem with uncertain prognosis? @ -No Drug Therapy requiring intensive monitoring for toxicity (Heparin, Nitro, Insulin, Cardizem)? @ -No Were any procedures done? @ -No Diagnosis/symptom? @ -Gastroenteritis Acute, or Chronic, or Acute on Chronic? @ -Acute Uncomplicated (without systemic symptoms) or Complicated (systemic symptoms)? @ -Uncomplicated Side effects of treatment? @ -No Exacerbation, Progression, or Severe Exacerbation? @ -No Poses a threat to life or bodily function? How? (Chest pain, [place], [place], pneumonia, PE, COPD, DKA, ARF, appy, cholecystitis, CVA, Diverticulitis, Homicidal, Suicidal, threat to staff... and all critical care pts) @ -No Disposition Clinical Impression: Gastroenteritis Disposition: HOME SELF-CARE Condition: Stable Instructions (If sedation given, give patient instructions): Gastroenteritis (ED) Additional Instructions: Please return to the Emergency Department if symptoms worsen or any other concerns. Is patient prescribed a controlled substance at d/c from ED?: No Referrals: None,Stated [Primary Care Provider] - 1-2 days Time of Disposition: 18:57
== END 2022-05-26 19:23 | disposition home or self-care (01) ==
LOC: EC 18:27
DX: K52.9 Noninfective gastroenteritis and colitis, unspecified (principal); Z87.891 Personal history of nicotine dependence; F12.90 Cannabis use, unspecified, uncomplicated; Z88.8 Allergy status to other drugs, medicaments and biological substances
CPT/HCPCS: 99283

== ENCOUNTER 2022-07-06 19:49 | Emergency (ER) | payer OTHER ==
[2022-07-06 20:45] VITALS: BP 106/65; PULSE 80; RESP 20; TEMP 98.3
--- NOTE | 2022-07-06 23:12 | ED ---
General Adult HPI - General Chief complaint: Skin/Abscess/Foreign Body Stated complaint: Facial Swelling Time Seen by Provider: 07/06/22 21:01 Source: patient, RN notes reviewed Mode of arrival: ambulatory Limitations: no limitations - History of Present Illness Initial comments: Him to to obtain the initial history and physical from the patient however patient was not resting on cart. Patient eloped from the ER prior to evaluation - Related Data Previous Rx's Medication Instructions Recorded Amoxicillin/Potassium Clav 1 tab PO BID 10 Days #20 tab 04/23/22 [Amox-Clav 875-125 mg Tablet] Ibuprofen [Motrin] 600 mg PO Q8HR PRN #30 tab 05/07/22 Allergies Allergy/AdvReac Type Severity Reaction Status Date / Time cadex Allergy Rash/Hives Uncoded 07/06/22 20:45 Review of Systems ROS Statement: Those systems with pertinent positive or pertinent negative responses have been documented in the HPI. ROS Other: All systems not noted in ROS Statement are negative. Past Medical History Past Medical History: No Reported History Additional Past Medical History / Comment(s): psoriasis History of Any Multi-Drug Resistant Organisms: None Reported Past Surgical History: No Surgical Hx Reported Past Psychological History: No Psychological Hx Reported Smoking Status: Former smoker Past Alcohol Use History: None Reported Past Drug Use History: Marijuana General Exam Limitations: no limitations Course Vital Signs 07/06/22 20:42 Temperature 98.3 F Pulse Rate 80 Respiratory 20 Rate Blood Pressure 106/65 O2 Sat by Pulse 99 Oximetry - Reevaluation(s) Reevaluation #1: 07/06/22 23:12 Attempted to evaluate the patient. Patient was not on cart. Patient eloped from emergency department prior to evaluation. Disposition Clinical Impression: Rash Disposition: Left W/O Being Seen by Phys Condition: Undetermined Is patient prescribed a controlled substance at d/c from ED?: No Referrals: None,Stated [Primary Care Provider] - 1-2 days Time of Disposition: 00:04
== END 2022-07-06 21:30 | disposition left against medical advice (07) ==
LOC: EC 19:49
DX: R21 Rash and other nonspecific skin eruption (principal); F12.90 Cannabis use, unspecified, uncomplicated; Z87.891 Personal history of nicotine dependence
CPT/HCPCS: 99283

== ENCOUNTER 2022-12-03 06:23 | Emergency (ER) | payer OTHER ==
[2022-12-03] MEDS ORDERED: SODIUM CHLORIDE 0.9% 2,000 ML IV STA (07:19)
[2022-12-03] MEDS ORDERED: ONDANSETRON 4 MG/2 ML VIAL IVP STA (07:19)
[2022-12-03 07:20] VITALS: RESP 18
[2022-12-03] MEDS ORDERED: KETOROLAC 15 MG/ML 1 ML VIAL IVP STA (07:20)
[2022-12-03] MEDS ORDERED: ACETAMINOPHEN IV (For NPO) 1,000 MG in EMPTY BAG 1 BAG IVPB STA (07:20)
--- NOTE | 2022-12-03 07:46 | ED ---
General Adult HPI - General Chief complaint: Nausea/Vomiting/Diarrhea Stated complaint: N/V/D, chills, Fever Time Seen by Provider: 12/03/22 07:08 Source: patient, RN notes reviewed Mode of arrival: ambulatory Limitations: no limitations - History of Present Illness Initial comments: 27-year-old male presents emergency Department chief complaint of nausea vomiting diarrhea fever. Patient states symptoms started 2 days ago states he cannot keep anything down states he has back pain, achiness. He is unable take any Tylenol Motrin. Denies any chest pain dies any significant cough or cold- like symptoms denies any localized abdominal pain. - Related Data Previous Rx's Medication Instructions Recorded Amoxicillin/Potassium Clav 1 tab PO BID 10 Days #20 tab 04/23/22 [Amox-Clav 875-125 mg Tablet] Ibuprofen [Motrin] 600 mg PO Q8HR PRN #30 tab 05/07/22 Ondansetron Odt [Zofran Odt] 4 mg PO Q8HR PRN #10 tab 12/03/22 Allergies Allergy/AdvReac Type Severity Reaction Status Date / Time cadex Allergy Rash/Hives Uncoded 12/03/22 07:18 Review of Systems ROS Statement: Those systems with pertinent positive or pertinent negative responses have been documented in the HPI. ROS Other: All systems not noted in ROS Statement are negative. Past Medical History Past Medical History: No Reported History Additional Past Medical History / Comment(s): psoriasis History of Any Multi-Drug Resistant Organisms: None Reported Past Surgical History: No Surgical Hx Reported Past Psychological History: No Psychological Hx Reported Smoking Status: Former smoker Past Alcohol Use History: None Reported Past Drug Use History: Marijuana General Exam Limitations: no limitations General appearance: alert, in no apparent distress Head exam: Present: atraumatic, normocephalic, normal inspection Eye exam: Present: normal appearance, PERRL, EOMI. Absent: scleral icterus, conjunctival injection, periorbital swelling ENT exam: Present: normal exam, normal oropharynx, mucous membranes moist Neck exam: Present: normal inspection, full ROM. Absent: tenderness, meningismus, lymphadenopathy Respiratory exam: Present: normal lung sounds bilaterally. Absent: respiratory distress, wheezes, rales, rhonchi, stridor Cardiovascular Exam: Present: regular rate, normal rhythm, normal heart sounds. Absent: systolic murmur, diastolic murmur, rubs, gallop, clicks GI/Abdominal exam: Present: soft, tenderness, normal bowel sounds. Absent: distended, guarding, rebound, rigid Back exam: Absent: CVA tenderness (R), CVA tenderness (L) Course Vital Signs 12/03/22 12/03/22 07:16 09:13 Temperature 102 F H 98.9 F Pulse Rate 74 82 Respiratory 18 18 Rate Blood Pressure 120/68 124/67 O2 Sat by Pulse 99 97 Oximetry Medical Decision Making - Medical Decision Making Was pt. sent in by a medical professional or institution (, ILENE, SENIOR INSPECTOR, urgent care, hospital, or snf...) When possible be specific @ -No Did you speak to anyone other than the patient for history (EMS, parent, family, police, friend...)? What history was obtained from this source @ -No Did you review nursing and triage notes (agree or disagree)? Why? @ -I reviewed and agree with nursing and triage notes Were old charts reviewed (outside hosp., previous admission, EMS record, old EKG, old radiological studies, urgent care reports/EKG's, snf records)? Report findings @ -No old charts were reviewed Differential Diagnosis (chest pain, altered mental status, abdominal pain women, abdominal pain men, vaginal bleeding, weakness, fever, dyspnea, syncope, headache, dizziness, GI bleed, back pain, seizure, CVA, palpatations, mental health, musculoskeletal)? @ -Gastroenteritis, URI, Covid EKG interpreted by me (3pts min.). @ -None X-rays interpreted by me (1pt min.). @ -None done CT interpreted by me (1pt min.). @ -None done U/S interpreted by me (1pt. min.). @ -None done What testing was considered but not performed or refused? (CT, X-rays, U/S, labs)? Why? @ -None What meds were considered but not given or refused? Why? @ -None Did you discuss the management of the patient with other professionals (professionals i.e. ILENE Lopez, SENIOR INSPECTOR, lab, RT, psych nurse, manager social work, insurance checker, teacher, hearing officer, practice manager)? Give summary @ -No Was smoking cessation discussed for >3mins.? @ -No Was critical care preformed (if so, how long)? @ -No Were there social determinants of health that impacted care today? How? (Homelessness, low income, unemployed, alcoholism, drug addiction, tra nsportation, low edu. Level, literacy, decrease access to med. care, alf, rehab)? @ -No Was there de-escalation of care discussed even if they declined (Discuss DNR or withdrawal of care, Hospice)? DNR status @ -No What co-morbidities impacted this encounter? (DM, HTN, Smoking, COPD, CAD, Cancer, CVA, ARF, Chemo, Hep., AIDS, mental health diagnosis, sleep apnea, morbid obesity)? @ -None Was patient admitted / discharged? Hospital course, mention meds given and route, prescriptions, significant lab abnormalities, going to OR and other pertinent info. @ -Discharge patient feels. Improved after Tylenol, Toradol, IV fluids and antiemetics. Patient's covid 19 positive. Patient is discharged in stable condition return parameters were discussed. Undiagnosed new problem with uncertain prognosis? @ -No Drug Therapy requiring intensive monitoring for toxicity (Heparin, Nitro, Insulin, Cardizem)? @ -No Were any procedures done? @ -No Diagnosis/symptom? @ -covid 19 Acute, or Chronic, or Acute on Chronic? @ -Acute Uncomplicated (without systemic symptoms) or Complicated (systemic symptoms)? @ -[complicated Side effects of treatment? @ -No Exacerbation, Progression, or Severe Exacerbation? @ -No Poses a threat to life or bodily function? How? (Chest pain, [place], [place], pneumonia, PE, COPD, DKA, ARF, appy, cholecystitis, CVA, Diverticulitis, Homicidal, Suicidal, threat to staff... and all critical care pts) @ -No - Lab Data Result diagrams: 12/03/22 07:45 12/03/22 07:45 Lab Results 12/03/22 12/03/22 12/03/22 Range/Units 07:45 07:45 07:45 WBC 6.9 (3.8-10.6) k/uL RBC 4.84 (4.30-5.90) m/uL Hgb 14.1 (13.0-17.5) gm/dL Hct 40.3 (39.0-53.0) % MCV 83.3 (80.0-100.0) fL MCH 29.2 (25.0-35.0) pg MCHC 35.1 (31.0-37.0) g/dL RDW 12.2 (11.5-15.5) % Plt Count 214 (150-450) k/uL MPV 7.9 Neutrophils % 87 % Lymphocytes % 6 % Monocytes % 5 % Eosinophils % 1 % Basophils % 0 % Neutrophils # 6.0 (1.3-7.7) k/uL Lymphocytes # 0.4 L (1.0-4.8) k/uL Monocytes # 0.4 (0-1.0) k/uL Eosinophils # 0.1 (0-0.7) k/uL Basophils # 0.0 (0-0.2) k/uL Sodium 134 L (137-145) mmol/L Potassium 4.1 (3.5-5.1) mmol/L Chloride 102 (98-107) mmol/L Carbon Dioxide 20 L (22-30) mmol/L Anion Gap 12 mmol/L BUN 15 (9-20) mg/dL Creatinine 0.75 (0.66-1.25) mg/dL Est GFR (CKD-EPI)AfAm >90 (>60 ml/min/1.73 sqM) Est GFR (CKD-EPI)NonAf >90 (>60 ml/min/1.73 sqM) Glucose 100 H (74-99) mg/dL Plasma Lactic Acid Viral (0.7-2.0) mmol/L Calcium 9.3 (8.4-10.2) mg/dL Total Bilirubin 0.6 (0.2-1.3) mg/dL AST 27 (17-59) U/L ALT 26 (4-49) U/L Alkaline Phosphatase 61 (38-126) U/L Total Protein 7.5 (6.3-8.2) g/dL Albumin 4.6 (3.5-5.0) g/dL Lipase 40 (23-300) U/L Urine Color Urine Appearance (Clear) Urine pH (5.0-8.0) Ur Specific [place] (1.001-1.035) Urine Protein (Negative) Urine Glucose (UA) (Negative) Urine Ketones (Negative) Urine Blood (Negative) Urine Nitrite (Negative) Urine Bilirubin (Negative) Urine Urobilinogen (<2.0) mg/dL Ur Leukocyte Esterase (Negative) Influenza Type A (PCR) Not Detected (Not Detectd) Influenza Type B (PCR) Not Detected (Not Detectd) RSV (PCR) Not Detected (Not Detectd) SARS-CoV-2 (PCR) Detected A (Not Detectd) 12/03/22 12/03/22 Range/Units 07:45 09:00 WBC (3.8-10.6) k/uL RBC (4.30-5.90) m/uL Hgb (13.0-17.5) gm/dL Hct (39.0-53.0) % MCV (80.0-100.0) fL MCH (25.0-35.0) pg MCHC (31.0-37.0) g/dL RDW (11.5-15.5) % Plt Count (150-450) k/uL MPV Neutrophils % % Lymphocytes % % Monocytes % % Eosinophils % % Basophils % % Neutrophils # (1.3-7.7) k/uL Lymphocytes # (1.0-4.8) k/uL Monocytes # (0-1.0) k/uL Eosinophils # (0-0.7) k/uL Basophils # (0-0.2) k/uL Sodium (137-145) mmol/L Potassium (3.5-5.1) mmol/L Chloride (98-107) mmol/L Carbon Dioxide (22-30) mmol/L Anion Gap mmol/L BUN (9-20) mg/dL Creatinine (0.66-1.25) mg/dL Est GFR (CKD-EPI)AfAm (>60 ml/min/1.73 sqM) Est GFR (CKD-EPI)NonAf (>60 ml/min/1.73 sqM) Glucose (74-99) mg/dL Plasma Lactic Acid Viral 1.0 (0.7-2.0) mmol/L Calcium (8.4-10.2) mg/dL Total Bilirubin (0.2-1.3) mg/dL AST (17-59) U/L ALT (4-49) U/L Alkaline Phosphatase (38-126) U/L Total Protein (6.3-8.2) g/dL Albumin (3.5-5.0) g/dL Lipase (23-300) U/L Urine Color Colorless Urine Appearance Clear (Clear) Urine pH 8.0 (5.0-8.0) Ur Specific [place] 1.014 (1.001-1.035) Urine Protein Negative (Negative) Urine Glucose (UA) Negative (Negative) Urine Ketones Negative (Negative) Urine Blood Negative (Negative) Urine Nitrite Negative (Negative) Urine Bilirubin Negative (Negative) Urine Urobilinogen <2.0 (<2.0) mg/dL Ur Leukocyte Esterase Negative (Negative) Influenza Type A (PCR) (Not Detectd) Influenza Type B (PCR) (Not Detectd) RSV (PCR) (Not Detectd) SARS-CoV-2 (PCR) (Not Detectd) Disposition Clinical Impression: COVID-19, Nausea & vomiting Disposition: HOME SELF-CARE Condition: Stable Instructions (If sedation given, give patient instructions): COVID-19 (Coronavirus Disease 2019) (ED) Additional Instructions: Please return to the Emergency Department if symptoms worsen or any other concerns. Prescriptions: Ondansetron Odt [Zofran Odt] 4 mg PO Q8HR PRN #10 tab PRN Reason: Nausea Is patient prescribed a controlled substance at d/c from ED?: No Referrals: None,Stated [Primary Care Provider] - 1-2 days Time of Disposition: 09:23
[2022-12-03 07:57] LABS: Basophils % (A) 0 %; Eosinophils # (A) 0.1 k/uL (0-0.7); Eosinophils % (A) 1 %; HCT 40.3 % (39.0-53.0); HGB 14.1 gm/dL (13.0-17.5); Lymphocytes # (A) 0.4 k/uL (1.0-4.8); Lymphocytes % (A) 6 %; MCH 29.2 pg (25.0-35.0); MCHC 35.1 g/dL (31.0-37.0); MCV 83.3 fL (80.0-100.0); Mean Platelet Volume 7.9; Monocytes # (A) 0.4 k/uL (0-1.0); Monocytes % (A) 5 %; Neutrophils % (A) 87 %; Platelet Count 214 k/uL (150-450); RBC 4.84 m/uL (4.30-5.90); RDW 12.2 % (11.5-15.5); WBC 6.9 k/uL (3.8-10.6)
[2022-12-03 08:11] LABS: ALT 26 U/L (4-49); AST 27 U/L (17-59); African American GFR (CKD) >90 (>60 ml/min/1.73 sqM); Albumin 4.6 g/dL (3.5-5.0); Alkaline Phosphatase 61 U/L (38-126); Anion Gap 12 mmol/L; Blood Urea Nitrogen 15 mg/dL (9-20); Calcium 9.3 mg/dL (8.4-10.2); Carbon Dioxide 20 mmol/L (22-30); Chloride 102 mmol/L (98-107); Glucose 100 mg/dL (74-99); Lipase 40 U/L (23-300); Non-African American GFR(CKD) >90 (>60 ml/min/1.73 sqM); Potassium 4.1 mmol/L (3.5-5.1); Sodium 134 mmol/L (137-145); Total Bilirubin 0.6 mg/dL (0.2-1.3); Total Protein 7.5 g/dL (6.3-8.2)
[2022-12-03 09:21] LABS: Appearance,Urine Clear (Clear); Bilirubin,Urine Negative (Negative); Blood,Urine Negative (Negative); Color,Urine Colorless; Glucose,Urine (UA) Negative (Negative); Ketones,Urine Negative (Negative); Leukocyte Esterase,Urine Negative (Negative); Nitrite,Urine Negative (Negative); Protein,Urine Negative (Negative); Specific Gravity,Urine 1.014 (1.001-1.035); Urobilinogen,Urine <2.0 mg/dL (<2.0)
[2022-12-03 09:31] VITALS: BP 124/67; PULSE 82; TEMP 98.9
== END 2022-12-03 09:32 | disposition home or self-care (01) ==
LOC: EC 06:23
DX: U07.1 COVID-19 (principal); F12.90 Cannabis use, unspecified, uncomplicated; Z87.891 Personal history of nicotine dependence
CPT/HCPCS: 96365; 96375 ×2; 96361; 36415; 80053; 83605; 83690; 85025; 81003; 87636; 99284; J2405; J0131; J1885

== ENCOUNTER 2023-01-21 02:44 | Emergency (ER) | payer OTHER ==
[2023-01-21 03:02] VITALS: RESP 18; TEMP 98
[2023-01-21] MEDS ORDERED: KETOROLAC 15 MG/ML 1 ML VIAL IVP STA (03:14)
[2023-01-21] MEDS ORDERED: LIDOCAINE 5% PATCH TOPICAL ONE (03:15)
--- NOTE | 2023-01-21 03:20 | ED ---
SOB HPI - General Chief Complaint: Shortness of Breath Stated Complaint: SOB Time Seen by Provider: 01/21/23 03:10 Source: patient, RN notes reviewed Mode of arrival: wheelchair Limitations: no limitations - History of Present Illness Initial Comments: This is a 27-year-old male who presents to the emergency department for right- sided chest pain. States that he was woken up from his sleep with right-sided chest pain radiating to the back and felt like he was gasping for air. He has had pain in the same area over the last 3 days, but states that it is getting worse. Pain is worse when he tries to take a deep breath. Denies any injuries to this area. Also denies any history of similar symptoms in the past. He has had some coughing and congestion associated with this. Denies any history of asthma or other respiratory illnesses. MD Complaint: shortness of breath, chest pain - Related Data Previous Rx's Medication Instructions Recorded Amoxicillin/Potassium Clav 1 tab PO BID 10 Days #20 tab 04/23/22 [Amox-Clav 875-125 mg Tablet] Ibuprofen [Motrin] 600 mg PO Q8HR PRN #30 tab 05/07/22 Ondansetron Odt [Zofran Odt] 4 mg PO Q8HR PRN #10 tab 12/03/22 L.idocaine 5% Patch [Lidoderm] 1 patch TOPICAL DAILY PRN #30 patch 01/21/23 Allergies Allergy/AdvReac Type Severity Reaction Status Date / Time cadex Allergy Rash/Hives Uncoded 01/21/23 02:53 Review of Systems ROS Statement: Those systems with pertinent positive or pertinent negative responses have been documented in the HPI. ROS Other: All systems not noted in ROS Statement are negative. Past Medical History Past Medical History: No Reported History Additional Past Medical History / Comment(s): psoriasis History of Any Multi-Drug Resistant Organisms: None Reported Past Surgical History: No Surgical Hx Reported Past Psychological History: No Psychological Hx Reported Smoking Status: Vaper Past Alcohol Use History: None Reported Past Drug Use History: Marijuana General Exam Limitations: no limitations General appearance: alert, in distress Head exam: Present: atraumatic, normocephalic, normal inspection Respiratory exam: Present: normal lung sounds bilaterally, chest wall tenderness (Right sided). Absent: respiratory distress, wheezes, rales, rhonchi, stridor Cardiovascular Exam: Present: regular rate, normal rhythm, normal heart sounds. Absent: systolic murmur, diastolic murmur, rubs, gallop, clicks GI/Abdominal exam: Present: soft, normal bowel sounds. Absent: distended, tenderness, guarding, rebound, rigid Neurological exam: Present: alert, oriented X3, CN II-XII intact Psychiatric exam: Present: normal affect, normal mood Skin exam: Present: warm, dry, intact, normal color. Absent: rash Course Vital Signs 01/21/23 02:52 Temperature 98 F Pulse Rate 63 Respiratory 18 Rate Blood Pressure 120/77 O2 Sat by Pulse 98 Oximetry Medical Decision Making - Medical Decision Making This is a 27-year-old male who presents to the emergency department for chest pain and shortness of breath. Was pt. sent in by a medical professional or institution? @ -No Did you speak to anyone other than the patient for history? @ -No Did you review nursing and triage notes? @ -Yes, and I agree, it is accurate with regards to the patient's symptoms. Were old charts reviewed? @ -No Differential Diagnosis? @ -Differential Dyspnea: Coronary syndrome, arrhythmia, tamponade, asthma, COPD, pulmonary embolism, pneumonia, pneumothorax, pulmonary effusion, anaphylaxis, diabetic ketoacidosis, flailed chest, pulmonary contusion, diaphragmatic rupture, anemia, neuromuscular, this is not meant to be an all-inclusive list. EKG interpreted by me (3pts min.)? @ -Not obtained X-rays interpreted by me (1pt min.)? @ -Chest x-ray obtained, my interpretation identifies no localized consolidations or infiltrates. CT interpreted by me (1pt min.)? @ -Not obtained U/S interpreted by me (1pt. min.)? @ -Not obtained What testing was considered but not performed? (CT, X-rays, U/S, labs)? Why? @ -None What meds were considered but not given? Why? @ -None Did you discuss the management of the patient with other professionals? @ -No Did you reconcile home meds? @ -No Was smoking cessation discussed for >3mins.? @ -I discussed smoking cessation for greater than 3 minutes. The risk of smoking were discussed with the patient including but not limited to risks of cancer, stroke, coronary artery disease and COPD. Also discussed with patient were multiple methods of quitting smoking. Lastly we discussed the financial cost of smoking. Was critical care preformed (if so, how long)? @ -No Were there social determinants of health that impacted care today? How? (Homelessness, low income, unemployed, alcoholism, drug addiction, transp ortation, low edu. Level, literacy, decrease access to med. care, correction, rehab)? @ -No Was there de-escalation of care discussed even if they declined? (Discuss DNR or withdrawal of care, Hospice)? @ -No What co-morbidities impacted this encounter? (DM, HTN, Smoking, COPD, CAD, Cancer, CVA, Hep., AIDS, mental health diagnosis, sleep apnea, morbid obesity)? @ -Smoking Was patient admitted / discharged? @ -Discharged. Patient's pain was very reproducible on examination. Lab work obtained and found to be unremarkable, including a negative troponin and negative d-dimer. Covid, influenza, and RSV testing were negative. Chest x-ray reveals no acute process. Patient treated with Toradol and a lidocaine patch, which he felt was beneficial, and at that point felt stable for discharge home. Prescription for lidocaine patches provided with dosing instructions reviewed. Also advised alternating with ibuprofen and Tylenol as needed for pain relief. Undiagnosed new problem with uncertain prognosis? @ -None Drug Therapy requiring intensive monitoring for toxicity (Heparin, Nitro, Insulin, Cardizem)? @ -None Were any procedures done? @ -None Diagnosis/symptom? @ -Shortness of breath, right sided chest pain Acute, or Chronic, or Acute on Chronic? @ -Acute Uncomplicated (without systemic symptoms) or Complicated (systemic symptoms)? @ -Uncomplicated Side effects of treatment? @ -None Exacerbation, Progression, or Severe Exacerbation] @ -Not applicable Poses a threat to life or bodily function? @ -No Return precautions reviewed in depth, the patient is instructed to return to the emergency department with any new, worsening, or concerning symptoms. Patient verbalized understanding. This case was discussed in detail with the attending ED physician, Dr. Hernandez. Presentation, findings, and treatment plan discussed in detail as well. - Lab Data Result diagrams: 01/21/23 03:35 01/21/23 03:35 Lab Results 01/21/23 01/21/23 01/21/23 Range/Units 03:35 03:35 03:35 WBC 9.8 (3.8-10.6) k/uL RBC 5.07 (4.30-5.90) m/uL Hgb 14.7 (13.0-17.5) gm/dL Hct 43.3 (39.0-53.0) % MCV 85.4 (80.0-100.0) fL MCH 29.0 (25.0-35.0) pg MCHC 34.0 (31.0-37.0) g/dL RDW 12.7 (11.5-15.5) % Plt Count 246 (150-450) k/uL MPV 7.4 Neutrophils % 52 % Lymphocytes % 39 % Monocytes % 6 % Eosinophils % 1 % Basophils % 1 % Neutrophils # 5.1 (1.3-7.7) k/uL Lymphocytes # 3.8 (1.0-4.8) k/uL Monocytes # 0.5 (0-1.0) k/uL Eosinophils # 0.1 (0-0.7) k/uL Basophils # 0.1 (0-0.2) k/uL PT 10.1 (10.0-12.5) sec INR 0.9 (<1.2) APTT 24.2 (22.0-30.0) sec D-Dimer 0.25 (<0.60) mg/L FEU Sodium 140 (137-145) mmol/L Potassium 4.1 (3.5-5.1) mmol/L Chloride 104 (98-107) mmol/L Carbon Dioxide 24 (22-30) mmol/L Anion Gap 12 mmol/L BUN 16 (9-20) mg/dL Creatinine 0.70 (0.66-1.25) mg/dL Est GFR (CKD-EPI)AfAm >90 (>60 ml/min/1.73 sqM) Est GFR (CKD-EPI)NonAf >90 (>60 ml/min/1.73 sqM) Glucose 88 (74-99) mg/dL Plasma Lactic Acid Viral (0.7-2.0) mmol/L Calcium 9.6 (8.4-10.2) mg/dL Total Bilirubin 0.6 (0.2-1.3) mg/dL AST 26 (17-59) U/L ALT 24 (4-49) U/L Alkaline Phosphatase 72 (38-126) U/L Troponin I (0.000-0.034) ng/mL Total Protein 7.4 (6.3-8.2) g/dL Albumin 4.6 (3.5-5.0) g/dL Influenza Type A (PCR) (Not Detectd) Influenza Type B (PCR) (Not Detectd) RSV (PCR) (Not Detectd) SARS-CoV-2 (PCR) (Not Detectd) 01/21/23 01/21/23 01/21/23 Range/Units 03:35 03:35 03:35 WBC (3.8-10.6) k/uL RBC (4.30-5.90) m/uL Hgb (13.0-17.5) gm/dL Hct (39.0-53.0) % MCV (80.0-100.0) fL MCH (25.0-35.0) pg MCHC (31.0-37.0) g/dL RDW (11.5-15.5) % Plt Count (150-450) k/uL MPV Neutrophils % % Lymphocytes % % Monocytes % % Eosinophils % % Basophils % % Neutrophils # (1.3-7.7) k/uL Lymphocytes # (1.0-4.8) k/uL Monocytes # (0-1.0) k/uL Eosinophils # (0-0.7) k/uL Basophils # (0-0.2) k/uL PT (10.0-12.5) sec INR (<1.2) APTT (22.0-30.0) sec D-Dimer (<0.60) mg/L FEU Sodium (137-145) mmol/L Potassium (3.5-5.1) mmol/L Chloride (98-107) mmol/L Carbon Dioxide (22-30) mmol/L Anion Gap mmol/L BUN (9-20) mg/dL Creatinine (0.66-1.25) mg/dL Est GFR (CKD-EPI)AfAm (>60 ml/min/1.73 sqM) Est GFR (CKD-EPI)NonAf (>60 ml/min/1.73 sqM) Glucose (74-99) mg/dL Plasma Lactic Acid Viral 0.8 (0.7-2.0) mmol/L Calcium (8.4-10.2) mg/dL Total Bilirubin (0.2-1.3) mg/dL AST (17-59) U/L ALT (4-49) U/L Alkaline Phosphatase (38-126) U/L Troponin I <0.012 (0.000-0.034) ng/mL Total Protein (6.3-8.2) g/dL Albumin (3.5-5.0) g/dL Influenza Type A (PCR) Not Detected (Not Detectd) Influenza Type B (PCR) Not Detected (Not Detectd) RSV (PCR) Not Detected (Not Detectd) SARS-CoV-2 (PCR) Not Detected (Not Detectd) - Radiology Data Radiology results: report reviewed, image reviewed Disposition Clinical Impression: Shortness of breath, Nicotine dependence, Right-sided chest pain Disposition: HOME SELF-CARE Instructions (If sedation given, give patient instructions): Costochondritis (ED), Dyspnea (ED) Additional Instructions: Return to the emergency department with any new, worsening, or concerning symptoms. Alternate with ibuprofen and Tylenol as needed for pain relief. You can apply the lidocaine patches daily as well. Follow up with your primary care provider in 1-2 days. Prescriptions: L.idocaine 5% Patch [Lidoderm] 1 patch TOPICAL DAILY PRN #30 patch PRN Reason: Pain Is patient prescribed a controlled substance at d/c from ED?: No Referrals: None,Stated [Primary Care Provider] - 1-2 days
[2023-01-21 03:45] LABS: Basophils # (A) 0.1 k/uL (0-0.2); Basophils % (A) 1 %; Eosinophils # (A) 0.1 k/uL (0-0.7); Eosinophils % (A) 1 %; HCT 43.3 % (39.0-53.0); HGB 14.7 gm/dL (13.0-17.5); Lymphocytes # (A) 3.8 k/uL (1.0-4.8); Lymphocytes % (A) 39 %; MCV 85.4 fL (80.0-100.0); Mean Platelet Volume 7.4; Monocytes # (A) 0.5 k/uL (0-1.0); Monocytes % (A) 6 %; Neutrophils # (A) 5.1 k/uL (1.3-7.7); Neutrophils % (A) 52 %; Platelet Count 246 k/uL (150-450); RBC 5.07 m/uL (4.30-5.90); RDW 12.7 % (11.5-15.5); WBC 9.8 k/uL (3.8-10.6)
[2023-01-21 04:11] LABS: ALT 24 U/L (4-49); AST 26 U/L (17-59); African American GFR (CKD) >90 (>60 ml/min/1.73 sqM); Albumin 4.6 g/dL (3.5-5.0); Alkaline Phosphatase 72 U/L (38-126); Anion Gap 12 mmol/L; Blood Urea Nitrogen 16 mg/dL (9-20); Calcium 9.6 mg/dL (8.4-10.2); Carbon Dioxide 24 mmol/L (22-30); Chloride 104 mmol/L (98-107); Glucose 88 mg/dL (74-99); Non-African American GFR(CKD) >90 (>60 ml/min/1.73 sqM); Potassium 4.1 mmol/L (3.5-5.1); Sodium 140 mmol/L (137-145); Total Bilirubin 0.6 mg/dL (0.2-1.3); Total Protein 7.4 g/dL (6.3-8.2)
[2023-01-21 04:12] LABS: INR 0.9 (<1.2); Partial Thromboplastin Time 24.2 sec (22.0-30.0); Prothrombin Time 10.1 sec (10.0-12.5)
[2023-01-21] MEDS ORDERED: IBUPROFEN 600 MG STARTER PACK 4 TAB BTL PO STA (04:53)
[2023-01-21] MEDS ORDERED: ACET/COD 300 MG/30 MG STARTER PACK 6 TAB BTL PO STA (04:53)
--- NOTE | 2023-01-21 05:27 | XR ---
EXAMINATION TYPE: XR chest 2V DATE OF EXAM: 01/21/2023 COMPARISON: Chest x-ray October 03, 2021 HISTORY: Difficulty in breathing TECHNIQUE: Frontal and lateral views of the chest are obtained. FINDINGS: There is no suspicious focal air space opacity, pleural effusion, or pneumothorax seen. T he cardiac silhouette size is stable and within normal limits. The osseous structures are intact. IMPRESSION: No acute process. No significant change from prior.
[2023-01-21 05:36] VITALS: BP 127/80; PULSE 71
== END 2023-01-21 05:33 | disposition home or self-care (01) ==
LOC: EC 02:44
DX: R06.02 Shortness of breath (principal); R07.89 Other chest pain; F17.290 Nicotine dependence, other tobacco product, uncomplicated; F12.90 Cannabis use, unspecified, uncomplicated; Z20.822 Contact with and (suspected) exposure to COVID-19; Z88.8 Allergy status to other drugs, medicaments and biological substances
CPT/HCPCS: 36415; 85379; 80053; 83605; 84484; 85025; 85610; 85730; 87636; 71046; 99285; 96374; J1885

== ENCOUNTER 2023-03-23 18:20 | Emergency (ER) | payer OTHER ==
--- NOTE | 2023-03-23 18:48 | ED ---
General Adult HPI - General Source: patient, RN notes reviewed Mode of arrival: ambulatory Limitations: no limitations <Tobin Powell - Last Filed: 03/23/23 18:47> <Milan Headley - Last Filed: 03/23/23 20:13> - General Stated complaint: possible covid back pain Time Seen by Provider: 03/23/23 18:48 - History of Present Illness Initial comments: 28-year-old male presents emergency department complaint cough cold-like symptoms. Patient states that he has been exposed to COVID. Patient states he is here for a work note and a test. (Tobin Powell) 8-year-old male presented to the ED with URI symptoms. States that he thinks he was exposed to COVID and would just like to have a test performed for this. Notes he has had some myalgias, congestion, diarrhea. States today symptoms improved and would just like a test and work note. Patient also notes history of back pain and states that he was previously prescribed lidocaine patches but did not pick them up and would like to have another prescription for this as well. No saddle anesthesia or incontinence. No chest pain or shortness of breath. No fever or chills. No other complaints at this time. (Milan Headley) - Related Data Previous Rx's Medication Instructions Recorded Amoxicillin/Potassium Clav 1 tab PO BID 10 Days #20 tab 04/23/22 [Amox-Clav 875-125 mg Tablet] Ibuprofen [Motrin] 600 mg PO Q8HR PRN #30 tab 05/07/22 Ondansetron Odt [Zofran Odt] 4 mg PO Q8HR PRN #10 tab 12/03/22 Lidocaine 5% Patch [Lidoderm] 1 patch TOPICAL DAILY PRN #30 patch 01/21/23 Lidocaine 5% Patch [Lidoderm 5% 1 patch TOPICAL DAILY PRN #10 patch 03/23/23 Patch] Allergies Allergy/AdvReac Type Severity Reaction Status Date / Time cadex Allergy Rash/Hives Uncoded 03/23/23 18:50 Review of Systems ROS Other: All systems not noted in ROS Statement are negative. <Tobin Powell - Last Filed: 03/23/23 18:47> ROS Other: All systems not noted in ROS Statement are negative. <Milan Headley - Last Filed: 03/23/23 20:13> ROS Statement: Those systems with pertinent positive or pertinent negative responses have been documented in the HPI. Past Medical History Past Medical History: No Reported History Additional Past Medical History / Comment(s): psoriasis History of Any Multi-Drug Resistant Organisms: None Reported Past Surgical History: No Surgical Hx Reported Past Psychological History: No Psychological Hx Reported Smoking Status: Vaper Past Alcohol Use History: None Reported Past Drug Use History: Marijuana <Tobin Powell - Last Filed: 03/23/23 18:47> General Exam <Tobin Powell - Last Filed: 03/23/23 18:47> General appearance: alert, in no apparent distress Eye exam: Present: normal appearance Neck exam: Present: normal inspection Respiratory exam: Present: normal lung sounds bilaterally Cardiovascular Exam: Present: regular rate, normal rhythm GI/Abdominal exam: Present: soft Extremities exam: Present: normal inspection, other (Ambulates without difficulty) Back exam: Present: normal inspection Neurological exam: Present: alert, oriented X3 Skin exam: Present: warm, dry <Milan Headley - Last Filed: 03/23/23 20:13> - General Exam Comments Initial Comments: Visual Physical Exam Vital signs reviewed General: Well-appearing, nontoxic, no acute distress. Head: Normocephalic, atraumatic Eyes: PERRLA, EOMI ENT: Airway patent Chest: Nonlabored breathing Skin: No visual rash, normal skin tone Neuro: Alert and oriented 3 Musculoskeletal: No gross abnormalities (Tobin Powell) Course Vital Signs 03/23/23 18:47 Temperature 98.9 F Pulse Rate 79 Respiratory 20 Rate Blood Pressure 128/80 O2 Sat by Pulse 99 Oximetry Medical Decision Making <Tobin Powell - Last Filed: 03/23/23 18:47> <Milan Headley - Last Filed: 03/23/23 20:13> - Medical Decision Making I completed the quick note portion of this chart signed Tobin Powell PA-C (Tobin Powell) Was pt. sent in by a medical professional or institution (ILENE Lopez, [employer], urgent care, hospital, or long-term...) When possible be specific @ -No Did you speak to anyone other than the patient for history (EMS, parent, family, police, friend...)? What history was obtained from this source @ -No Did you review nursing and triage notes (agree or disagree)? Why? @ -I reviewed and agree with nursing and triage notes Were old charts reviewed (outside hosp., previous admission, EMS record, old EKG, old radiological studies, urgent care reports/EKG's, long-term records)? Report findings @ -No old charts were reviewed Differential Diagnosis (chest pain, altered mental status, abdominal pain women, abdominal pain men, vaginal bleeding, weakness, fever, dyspnea, syncope, headache, dizziness, GI bleed, back pain, seizure, CVA, palpatations, mental health, musculoskeletal)? @ -Differential Fever: Pneumonia, viral URI, endocarditis, myocarditis, pericarditis, otitis, sinusitis, peritonsillar Abscess, retropharyngeal Abscess, epiglottitis, peritonitis, appendicitis, Kandice cystitis, diverticulitis, hepatitis, colitis, UTI, PID, TOA, pyelonephritis, prostatitis, epididymitis, meningitis, encephalitis, pulmonary embolism, CVA, thyroid storm, pancreatitis, adrenal crisis, cavernous sinus thrombosis, this is not meant to be an all-inclusive list. EKG interpreted by me (3pts min.). @ -None X-rays interpreted by me (1pt min.). @ -None done CT interpreted by me (1pt min.). @ -None done U/S interpreted by me (1pt. min.). @ -None done What testing was considered but not performed or refused? (CT, X-rays, U/S, labs)? Why? @ -Additional testing was considered such as imaging and labs however patient reports at this time is feeling much improved and would just like to have testing for COVID. What meds were considered but not given or refused? Why? @ -None Did you discuss the management of the patient with other professionals (professionals i.e. ., PA, [employer]PER[employer], lab, RT, psych nurse, social worker assistant, track laborer, teacher, airport operations officer, home health care case manager)? Give summary @ -No Was smoking cessation discussed for >3mins.? @ -No Was critical care preformed (if so, how long)? @ -No Were there social determinants of health that impacted care today? How? (Homelessness, low income, unemployed, alcoholism, drug addiction, transportation, low edu. Level, literacy, decrease access to med. care, residential, rehab)? @ -No Was there de-escalation of care discussed even if they declined (Discuss DNR or withdrawal of care, Hospice)? DNR status @ -No What co-morbidities impacted this encounter? (DM, HTN, Smoking, COPD, CAD, Cancer, CVA, ARF, Chemo, Hep., AIDS, mental health diagnosis, sleep apnea, morbid obesity)? @ -None Was patient admitted / discharged? Hospital course, mention meds given and route, prescriptions, significant lab abnormalities, going to OR and other pertinent info. @ -Discharge 28-year-old male presenting to the ED with request for COVID test. 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 Serology shows COVID, influenza, RSV negative. Provided prescription for lidocaine patches. Discharged home stable condition. Discussed return precautions with patient who verbalized agreement. Undiagnosed new problem with uncertain prognosis? @ -No Drug Therapy requiring intensive monitoring for toxicity (Heparin, Nitro, Insulin, Cardizem)? @ -No Were any procedures done? @ -No Diagnosis/symptom? @ -Viral URI Acute, or Chronic, or Acute on Chronic? @ -Acute Uncomplicated (without systemic symptoms) or Complicated (systemic symptoms)? @ -Uncomplicated Side effects of treatment? @ -No Exacerbation, Progression, or Severe Exacerbation? @ -No Poses a threat to life or bodily function? How? (Chest pain, [place], [place], pneumonia, PE, COPD, DKA, ARF, appy, cholecystitis, CVA, Diverticulitis, Homicidal, Suicidal, threat to staff... and all critical care pts) @ -No (Milan Headley) - Lab Data Lab Results 03/23/23 Range/Units 18:51 Influenza Type A (PCR) Not Detected (Not Detectd) Influenza Type B (PCR) Not Detected (Not Detectd) RSV (PCR) Not Detected (Not Detectd) SARS-CoV-2 (PCR) Not Detected (Not Detectd) Disposition <Tobin Powell - Last Filed: 03/23/23 18:47> Is patient prescribed a controlled substance at d/c from ED?: No Time of Disposition: 20:08 <Milan Headley - Last Filed: 03/23/23 20:13> Clinical Impression: Viral URI Disposition: HOME SELF-CARE Condition: Good Instructions (If sedation given, give patient instructions): Upper Respiratory Infection (ED) Additional Instructions: Please return to the Emergency Department if symptoms worsen or any other concerns. Please follow-up with your primary care provider. Prescriptions: Lidocaine 5% Patch [Lidoderm 5% Patch] 1 patch TOPICAL DAILY PRN #10 patch PRN Reason: Pain Referrals: None,Stated [Primary Care Provider] - 1-2 days
[2023-03-23 19:08] VITALS: BP 128/80; PULSE 79; RESP 20; TEMP 98.9
[2023-03-23] MEDS ORDERED: LIDOCAINE 4% PATCH TOPICAL STA (19:52)
== END 2023-03-23 20:24 | disposition home or self-care (01) ==
LOC: EC 18:20
DX: J06.9 Acute upper respiratory infection, unspecified (principal); F12.90 Cannabis use, unspecified, uncomplicated; F17.290 Nicotine dependence, other tobacco product, uncomplicated; Z88.8 Allergy status to other drugs, medicaments and biological substances; Z20.822 Contact with and (suspected) exposure to COVID-19
CPT/HCPCS: 87636; 99283

== ENCOUNTER 2023-03-31 16:42 | Emergency (ER) | payer OTHER ==
--- NOTE | 2023-03-31 17:02 | ED ---
General Adult HPI - General Stated complaint: Bodyache,Chest Pain Time Seen by Provider: 03/31/23 17:01 Source: patient, RN notes reviewed Mode of arrival: ambulatory Limitations: no limitations - History of Present Illness Initial comments: 28 year old male presents to the emergency department for evaluation of shortness of breath, cough, body aches. He states this has been going on for around 1 week but is not improving. Patient also admits to sore throat. Denies fever, chills. Denies nausea, vomiting. Denies any significant past medical history. - Related Data Previous Rx's Medication Instructions Recorded Amoxicillin/Potassium Clav 1 tab PO BID 10 Days #20 tab 04/23/22 [Amox-Clav 875-125 mg Tablet] Ibuprofen [Motrin] 600 mg PO Q8HR PRN #30 tab 05/07/22 Ondansetron Odt [Zofran Odt] 4 mg PO Q8HR PRN #10 tab 12/03/22 Lidocaine 5% Patch [Lidoderm] 1 patch TOPICAL DAILY PRN #30 patch 01/21/23 Lidocaine 5% Patch [Lidoderm 5% 1 patch TOPICAL DAILY PRN #10 patch 03/23/23 Patch] Allergies Allergy/AdvReac Type Severity Reaction Status Date / Time cadex Allergy Rash/Hives Uncoded 03/23/23 18:50 Review of Systems ROS Statement: Those systems with pertinent positive or pertinent negative responses have been documented in the HPI. ROS Other: All systems not noted in ROS Statement are negative. Past Medical History Past Medical History: No Reported History Additional Past Medical History / Comment(s): psoriasis History of Any Multi-Drug Resistant Organisms: None Reported Past Surgical History: No Surgical Hx Reported Past Psychological History: No Psychological Hx Reported Smoking Status: Vaper Past Alcohol Use History: None Reported Past Drug Use History: Marijuana General Exam Limitations: no limitations General appearance: alert, in no apparent distress Head exam: Present: atraumatic, normocephalic, normal inspection Eye exam: Present: normal appearance, PERRL, EOMI. Absent: scleral icterus, conjunctival injection, periorbital swelling ENT exam: Present: mucous membranes moist. Absent: normal oropharynx (erythematous oropharynx without exudate) Neck exam: Present: normal inspection, full ROM. Absent: tenderness, meningismus, lymphadenopathy Respiratory exam: Present: normal lung sounds bilaterally. Absent: respiratory distress, wheezes, rales, rhonchi, stridor Cardiovascular Exam: Present: regular rate, normal rhythm, normal heart sounds. Absent: systolic murmur, diastolic murmur, rubs, gallop, clicks Extremities exam: Present: normal inspection, full ROM, normal capillary refill. Absent: tenderness, pedal edema, joint swelling, calf tenderness Back exam: Present: normal inspection Neurological exam: Present: alert, oriented X3 Psychiatric exam: Present: normal affect, normal mood Skin exam: Present: warm, dry, intact, normal color. Absent: rash Course Vital Signs 03/31/23 03/31/23 17:01 18:44 Temperature 98.5 F 98.2 F Pulse Rate 88 82 Respiratory 16 18 Rate Blood Pressure 146/96 139/83 O2 Sat by Pulse 99 98 Oximetry Medical Decision Making - Medical Decision Making Was pt. sent in by a medical professional or institution (Dr. PA, STATION ATTENDANT, urgent care, hospital, or halfway...) When possible be specific @ -No Did you speak to anyone other than the patient for history (EMS, parent, family, police, friend...)? What history was obtained from this source @ -No Did you review nursing and triage notes (agree or disagree)? Why? @ -I reviewed and agree with nursing and triage notes Were old charts reviewed (outside hosp., previous admission, EMS record, old EKG, old radiological studies, urgent care reports/EKG's, halfway records)? Report findings @ -No old charts were reviewed Differential Diagnosis (chest pain, altered mental status, abdominal pain women, abdominal pain men, vaginal bleeding, weakness, fever, dyspnea, syncope, headache, dizziness, GI bleed, back pain, seizure, CVA, palpatations, mental health, musculoskeletal)? @ -COVID, influenza, RSV, mononucleosis, pneumonia, this list is not inclusive EKG interpreted by me (3pts min.). @ -None X-rays interpreted by me (1pt min.). @ -Chest x-ray shows no acute infiltrate CT interpreted by me (1pt min.). @ -None done U/S interpreted by me (1pt. min.). @ -None done What testing was considered but not performed or refused? (CT, X-rays, U/S, labs)? Why? @ -None What meds were considered but not given or refused? Why? @ -None Did you discuss the management of the patient with other professionals (professionals i.e. , PA, STATION ATTENDANT, lab, RT, psych nurse, social service agency director, weight caller, teacher, commanding officer garage, shoe caser)? Give summary @ -No Was smoking cessation discussed for >3mins.? @ -No Was critical care preformed (if so, how long)? @ -No Were there social determinants of health that impacted care today? How? (Homelessness, low income, unemployed, alcoholism, drug addiction, transportation, low edu. Level, literacy, decrease access to med. care, [facility], rehab)? @ -No Was there de-escalation of care discussed even if they declined (Discuss DNR or withdrawal of care, Hospice)? DNR status @ -No What co-morbidities impacted this encounter? (DM, HTN, Smoking, COPD, CAD, Cancer, CVA, ARF, Chemo, Hep., AIDS, mental health diagnosis, sleep apnea, morbid obesity)? @ -None Was patient admitted / discharged? Hospital course, mention meds given and route, prescriptions, significant lab abnormalities, going to OR and other pertinent info. @ -Discharge. Patient presented to the emergency department for evaluation of cough, congestion, sore throat, body aches x 1 week. COVID, influenza, RSV negative. Chest x-ray obtained shows no acute process. Discussed with patient possibility of performing further laboratory testing. Patient would like to be discharged home. Strict return precautions discussed. Patient stable at time of discharge. Case discussed with Dr. Hernandez Undiagnosed new problem with uncertain prognosis? @ -No Drug Therapy requiring intensive monitoring for toxicity (Heparin, Nitro, Insulin, Cardizem)? @ -No Were any procedures done? @ -No Diagnosis/symptom? @ -Viral URI, pharyngitis Acute, or Chronic, or Acute on Chronic? @ -Acute Uncomplicated (without systemic symptoms) or Complicated (systemic symptoms)? @ -Uncomplicated Side effects of treatment? @ -No Exacerbation, Progression, or Severe Exacerbation? @ -No Poses a threat to life or bodily function? How? (Chest pain, [place], [place], pneumonia, PE, COPD, DKA, ARF, appy, cholecystitis, CVA, Diverticulitis, Homicidal, Suicidal, threat to staff... and all critical care pts) @ -No - Lab Data Lab Results 03/31/23 Range/Units 17:09 Influenza Type A (PCR) Not Detected (Not Detectd) Influenza Type B (PCR) Not Detected (Not Detectd) RSV (PCR) Not Detected (Not Detectd) SARS-CoV-2 (PCR) Not Detected (Not Detectd) Disposition Clinical Impression: Viral URI Disposition: HOME SELF-CARE Condition: Stable Instructions (If sedation given, give patient instructions): Upper Respiratory Infection (ED) Additional Instructions: Please follow up with your primary care provider. Return to the emergency department for new or worsening symptoms. Is patient prescribed a controlled substance at d/c from ED?: No Referrals: None,Stated [Primary Care Provider] - 1-2 days
--- NOTE | 2023-03-31 18:06 | XR ---
EXAMINATION TYPE: XR chest 2V DATE OF EXAM: 03/31/2023 COMPARISON: 01/21/2023 HISTORY: 28-year-old male with vomiting, nausea, difficulty breathing, pain TECHNIQUE: PA and lateral views FINDINGS: The cardiomediastinal silhouette, aorta, and pulmonary vasculature are within normal limits. Lungs an d pleural spaces are clear. IMPRESSION: No acute cardiopulmonary process.
[2023-03-31 19:01] VITALS: BP 139/83; PULSE 82; RESP 18; TEMP 98.2
== END 2023-03-31 18:46 | disposition home or self-care (01) ==
LOC: EC 16:42
DX: J02.8 Acute pharyngitis due to other specified organisms (principal); F17.290 Nicotine dependence, other tobacco product, uncomplicated; F12.90 Cannabis use, unspecified, uncomplicated; Z20.822 Contact with and (suspected) exposure to COVID-19; Z91.09 Other allergy status, other than to drugs and biological substances
CPT/HCPCS: 71046; 87636; 99285

== ENCOUNTER 2023-04-06 10:32 | Emergency (ER) | payer OTHER ==
[2023-04-06 10:45] VITALS: BP 119/78; PULSE 64; RESP 18; TEMP 98
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
[2023-04-06] MEDS: HYDROcodone/APAP 5-325MG 1 EACH TAB PO STA (11:04)
[2023-04-06] MEDS: ORPHENADRINE 30 MG/ML 2 ML VIAL IM STA (11:05)
== END 2023-04-06 11:12 | disposition home or self-care (01) ==
LOC: EC 10:32
DX: S42.001A Fracture of unspecified part of right clavicle, initial encounter for closed fracture (principal); S20.20XA Contusion of thorax, unspecified, initial encounter; F17.290 Nicotine dependence, other tobacco product, uncomplicated; F12.90 Cannabis use, unspecified, uncomplicated; Z91.09 Other allergy status, other than to drugs and biological substances; V00.328A Other snow-ski accident, initial encounter; Y93.23 Activity, snow (alpine) (downhill) skiing, snowboarding, sledding, tobogganing and snow tubing
CPT/HCPCS: 99283; 96372; J2360

== ENCOUNTER 2023-05-11 09:09 | Emergency (ER) | payer OTHER ==
[2023-05-11 09:41] VITALS: TEMP 98.1
--- NOTE | 2023-05-11 09:53 | XR ---
EXAMINATION TYPE: XR chest 2V DATE OF EXAM: 05/11/2023 COMPARISON: 04/02/2023 INDICATION: Cough, known fracture, recent injury TECHNIQUE: Frontal and lateral views of the chest are obtained. FINDINGS: The heart size is normal. The pulmonary vasculature is normal. The lungs are clear. There is a mid right oblique clavicular fracture with bayonet deformity. No additional fractures are identified. IMPRESSION: 1. No acute pulmonary process. 2. Known right midclavicular fracture.
--- NOTE | 2023-05-11 09:54 | XR ---
EXAMINATION TYPE: XR clavicle RT DATE OF EXAM: 05/11/2023 COMPARISON: Chest x-ray same date HISTORY: Known right clavicular fracture TECHNIQUE: 2 view right clavicle FINDINGS: There is an oblique fracture through the mid diaphyseal clavicle. Bayonet deformity is pres ent with inferior displacement of the distal fracture fragment in relation to the proximal fracture f ragment. No new or additional fractures evident. IMPRESSION: 1. Known right clavicular fracture.
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
[2023-05-11] MEDS: DEXAMETHASONE SOD PHOSPHATE 10 MG/ML 1 ML VIAL IM STA (10:27)
[2023-05-11] MEDS: ONDANSETRON ODT 4 MG TAB PO STA (10:28)
[2023-05-11] MEDS: KETOROLAC 15 MG/ML 1 ML VIAL IM STA (10:31)
[2023-05-11 11:34] VITALS: BP 110/68; PULSE 60; RESP 16
== END 2023-05-11 11:08 | disposition home or self-care (01) ==
LOC: EC 09:09
DX: J10.1 Influenza due to other identified influenza virus with other respiratory manifestations (principal); S42.021A Displaced fracture of shaft of right clavicle, initial encounter for closed fracture; F17.290 Nicotine dependence, other tobacco product, uncomplicated; F12.90 Cannabis use, unspecified, uncomplicated; Z88.8 Allergy status to other drugs, medicaments and biological substances; X50.0XXA Overexertion from strenuous movement or load, initial encounter
CPT/HCPCS: 87651; 87636; 73000; 71046; 99283; 96372 ×2; 99406; J1100; J1885

== ENCOUNTER 2023-06-05 16:52 | Emergency (ER) | payer OTHER ==
--- NOTE | 2023-06-05 17:21 | ED ---
Back Pain HPI - General Chief Complaint: Back Pain/Injury Stated Complaint: Back Pain,Sob Time Seen by Provider: 06/05/23 17:00 Source: patient Limitations: no limitations - History of Present Illness Initial Comments: This is a 28-year-old male with a past history of a right clavicle fracture who presents emergency department with a chief complaint of back pain. Patient states that about 3 days ago he experienced a sharp stabbing sensation in his mid back that is exacerbated with movement of his back and bilateral upper extremities. He denies trauma at the time of pain, states that he was cooking dinner and moving pants into the sink when he felt a sharp pain in his back. This pain is reproducible with palpation. He denies pain radiating or moving into his chest. He denies chest pain, palpitations, dizziness, lightheadedness, fatigue. He took a muscle relaxer yesterday evening from his previous clavicle fracture for symptomatic relief. - Related Data Previous Rx's Medication Instructions Recorded Amoxicillin/Potassium Clav 1 tab PO BID 10 Days #20 tab 04/23/22 [Amox-Clav 875-125 mg Tablet] Ibuprofen [Motrin] 600 mg PO Q8HR PRN #30 tab 05/07/22 Ondansetron Odt [Zofran Odt] 4 mg PO Q8HR PRN #10 tab 12/03/22 Lidocaine 5% Patch [Lidoderm] 1 patch TOPICAL DAILY PRN #30 patch 01/21/23 Lidocaine 5% Patch [Lidoderm 5% 1 patch TOPICAL DAILY PRN #10 patch 03/23/23 Patch] HYDROcodone/APAP 5-325MG [[place] 1 tab PO Q6HR PRN 3 Days #12 tab 04/06/23 5-325] Lidocaine 5% Patch [Lidoderm 5% 1 patch TOPICAL DAILY #10 patch 04/06/23 Patch] Benzonatate [Tessalon Perle] 200 mg PO TID PRN #30 capsule 05/11/23 Ibuprofen [Motrin] 800 mg PO Q8H PRN #30 tab 05/11/23 Oseltamivir [Tamiflu] 75 mg PO Q12HR 5 Days #10 cap 05/11/23 Lidocaine 5% Patch [Lidoderm] 1 each TP DAILY PRN #5 patch 06/05/23 Allergies Allergy/AdvReac Type Severity Reaction Status Date / Time cadex Allergy Rash/Hives Uncoded 05/11/23 09:17 Review of Systems ROS Statement: Those systems with pertinent positive or pertinent negative responses have been documented in the HPI. ROS Other: All systems not noted in ROS Statement are negative. Past Medical History Past Medical History: No Reported History Additional Past Medical History / Comment(s): psoriasis History of Any Multi-Drug Resistant Organisms: None Reported Past Surgical History: No Surgical Hx Reported Additional Past Surgical History / Comment(s): sweat gland removal from left eye Past Psychological History: No Psychological Hx Reported Smoking Status: Vaper Past Alcohol Use History: Occasional Past Drug Use History: Marijuana General Exam Limitations: no limitations Course Vital Signs 06/05/23 06/05/23 17:03 18:31 Temperature 98.1 F 98 F Pulse Rate 75 76 Respiratory 16 18 Rate Blood Pressure 136/71 121/80 O2 Sat by Pulse 97 99 Oximetry Medical Decision Making - Medical Decision Making Was pt. sent in by a medical professional or institution (, PA, HISTORICAL SOCIETY DIRECTOR, urgent care, hospital, or shelter...) When possible be specific @ -No Did you speak to anyone other than the patient for history (EMS, parent, family, police, friend...)? What history was obtained from this source @ -No Did you review nursing and triage notes (agree or disagree)? Why? @ -I reviewed and agree with nursing and triage notes Were old charts reviewed (outside hosp., previous admission, EMS record, old EKG, old radiological studies, urgent care reports/EKG's, shelter records)? Report findings @ -No old charts were reviewed Differential Diagnosis (chest pain, altered mental status, abdominal pain women, abdominal pain men, vaginal bleeding, weakness, fever, dyspnea, syncope, headache, dizziness, GI bleed, back pain, seizure, CVA, palpatations, mental health, musculoskeletal)? @ -Differential Musculoskeletal Muscular strain, contusion, ligament sprain, fracture, arthritis, septic arthritis, bursitis, cellulitis, muscle spasm, nerve compression, DVT, arterial occlusion, herpes zoster, electrolyte abnormality, tumor.... This is not meant to be in all inclusive list EKG interpreted by me (3pts min.). @ -none X-rays interpreted by me (1pt min.). @ -Chest x-ray and thoracic x-ray no acute osseous pathology, no acute cardiopulmonary process noted. CT interpreted by me (1pt min.). @ -None done U/S interpreted by me (1pt. min.). @ -None done What testing was considered but not performed or refused? (CT, X-rays, U/S, labs)? Why? @ -None What meds were considered but not given or refused? Why? @ -None Did you discuss the management of the patient with other professionals (professionals i.e. DrBrendan, PA, HISTORICAL SOCIETY DIRECTOR, lab, RT, psych nurse, social work supervisor, geological aide, teacher, air control/anti air warfare officer, top case assembler)? Give summary @ -No Was smoking cessation discussed for >3mins.? @ -No Was critical care preformed (if so, how long)? @ -No Were there social determinants of health that impacted care today? How? (Homelessness, low income, unemployed, alcoholism, drug addiction, transportation, low edu. Level, literacy, decrease access to med. care, alf, rehab)? @ -No Was there de-escalation of care discussed even if they declined (Discuss DNR or withdrawal of care, Hospice)? DNR status @ -No What co-morbidities impacted this encounter? (DM, HTN, Smoking, COPD, CAD, Cancer, CVA, ARF, Chemo, Hep., AIDS, mental health diagnosis, sleep apnea, morbid obesity)? @ -None Was patient admitted / discharged? Hospital course, mention meds given and r oute, prescriptions, significant lab abnormalities, going to OR and other pertinent info. @ -Discharge. 28-year-old male with complaint of back pain. On physical examination pain is reproducible palpation in the mid back between the shoulder blades. Additionally, pain is provoked with movement of the thoracic spine in all range of motion in addition to movement of bilateral upper extremities. Pain did not radiate into patient's front therefore additional laboratory work was not ordered at this time. Plain radiographs were unremarkable. Discussed with patient that symptoms are likely secondary to acute muscle strain. Patient states that he has a few muscle relaxers at home from his previous collarbone fracture which he will take as needed for pain. Patient provided with lidocaine patch in the emergency department in addition to a IM dose of Norflex and oral Motrin. Patient states that his symptoms have improved after medications. Discussed with Dr. Hernandez. Undiagnosed new problem with uncertain prognosis? @ -No Drug Therapy requiring intensive monitoring for toxicity (Heparin, Nitro, Insulin, Cardizem)? @ -No Were any procedures done? @ -No Diagnosis/symptom? @ -back pain, muscle spasm Acute, or Chronic, or Acute on Chronic? @ -acute Uncomplicated (without systemic symptoms) or Complicated (systemic symptoms)? @ -uncomplicated Side effects of treatment? @ -No Exacerbation, Progression, or Severe Exacerbation? @ -No Poses a threat to life or bodily function? How? (Chest pain, [place], DC, pneumonia, PE, COPD, DKA, ARF, appy, cholecystitis, CVA, Diverticulitis, Homicidal, Suicidal, threat to staff... and all critical care pts) @ -No Disposition Clinical Impression: Muscle spasm, Back pain Narrative: Please return to the Emergency Department if symptoms worsen or any other concerns. Use lidocaine patches as needed for pain, continue to cycle Tylenol and Motrin. Disposition: HOME SELF-CARE Condition: Good Instructions (If sedation given, give patient instructions): Muscle Spasm (ED) Prescriptions: Lidocaine 5% Patch [Lidoderm] 1 each TP DAILY PRN #5 patch PRN Reason: Pain Is patient prescribed a controlled substance at d/c from ED?: No Referrals: Ly Vargas [Primary Care Provider] - 1-2 days Time of Disposition: 18:04
--- NOTE | 2023-06-05 17:37 | XR ---
EXAMINATION TYPE: XR chest 2V DATE OF EXAM: 06/05/2023 5:33 PM CLINICAL INDICATION:Male, 28 years old with history of SOB; [facility] COMPARISON: Chest radiographs from 05/11/2023 TECHNIQUE: XR chest 2V Frontal and lateral views of the chest. FINDINGS: Lungs/Pleura: There is no evidence of pleural effusion, focal consolidation, or pneumothorax. Pulmonary vascularity: Unremarkable. Heart/mediastinum: Cardiomediastinal silhouette is unremarkable. Musculoskeletal: No acute osseous pathology. IMPRESSION: No acute cardiopulmonary disease/process.
--- NOTE | 2023-06-05 17:40 | XR ---
EXAMINATION TYPE: XR thoracic spine complete DATE OF EXAM: 06/05/2023 5:33 PM CLINICAL INDICATION:Male, 28 years old with history of pain at level T5-T7; [facility] COMPARISON: None TECHNIQUE: XR thoracic spine complete views of the spine in Frontal and lateral projections. FINDINGS: No evidence of acute fracture. There is no evidence of disk space narrowing or loss of vertebral bod y height. There is normal alignment of the thoracic vertebral bodies. Minimal degeneration with osteo phytes noted. IMPRESSION: 1. No acute osseous pathology. 2. Minimal degeneration changes throughout the spine.
[2023-06-05] MEDS: ORPHENADRINE 30 MG/ML 2 ML VIAL IM STA (18:12)
[2023-06-05] MEDS: IBUPROFEN 800 MG TAB PO STA (18:12)
[2023-06-05] MEDS: LIDOCAINE 4% PATCH TOPICAL ONE (18:17)
[2023-06-05 18:58] VITALS: BP 121/80; PULSE 76; RESP 18; TEMP 98
== END 2023-06-05 18:31 | disposition home or self-care (01) ==
LOC: EC 16:52
DX: M62.830 Muscle spasm of back (principal); F17.290 Nicotine dependence, other tobacco product, uncomplicated; F12.90 Cannabis use, unspecified, uncomplicated; Z88.8 Allergy status to other drugs, medicaments and biological substances
CPT/HCPCS: 99284; 96372 ×2; 72072; 71046; 99283; J2360

== ENCOUNTER 2023-07-25 06:36 | Emergency (ER) | payer OTHER ==
[2023-07-25 06:43] VITALS: RESP 18
[2023-07-25] MEDS: KETOROLAC 15 MG/ML 1 ML VIAL IM STA (07:13)
[2023-07-25] MEDS: ONDANSETRON ODT 4 MG TAB PO STA (07:14)
--- NOTE | 2023-07-25 07:26 | ED ---
ENT HPI - General Chief complaint: ENT Stated complaint: Sore throat, fever, body aches Time Seen by Provider: 07/25/23 06:52 Source: patient, RN notes reviewed Mode of arrival: ambulatory Limitations: no limitations - History of Present Illness Initial comments: 28-year-old male presents emergency department with chief complaint of sore throat, body aches, nausea vomiting. Patient states that started overnight. Patient states initially had sore throat and into bed. He complains of diffuse bodyaches does not take anything for his fever. Patient denies any sick contacts no localized abdominal pain denies any cough, shortness of breath or chest pain. - Related Data Previous Rx's Medication Instructions Recorded Amoxicillin/Potassium Clav 1 tab PO BID 10 Days #20 tab 04/23/22 [Amox-Clav 875-125 mg Tablet] Ibuprofen [Motrin] 600 mg PO Q8HR PRN #30 tab 05/07/22 Ondansetron Odt [Zofran Odt] 4 mg PO Q8HR PRN #10 tab 12/03/22 Lidocaine 5% Patch [Lidoderm] 1 patch TOPICAL DAILY PRN #30 patch 01/21/23 Lidocaine 5% Patch [Lidoderm 5% 1 patch TOPICAL DAILY PRN #10 patch 03/23/23 Patch] HYDROcodone/APAP 5-325MG [[place] 1 tab PO Q6HR PRN 3 Days #12 tab 04/06/23 5-325] Lidocaine 5% Patch [Lidoderm 5% 1 patch TOPICAL DAILY #10 patch 04/06/23 Patch] Benzonatate [Tessalon Perle] 200 mg PO TID PRN #30 capsule 05/11/23 Ibuprofen [Motrin] 800 mg PO Q8H PRN #30 tab 05/11/23 Oseltamivir [Tamiflu] 75 mg PO Q12HR 5 Days #10 cap 05/11/23 Lidocaine 5% Patch [Lidoderm] 1 each TP DAILY PRN #5 patch 06/05/23 Ibuprofen [Motrin] 600 mg PO Q8HR PRN #20 tab 07/25/23 Ondansetron Odt [Zofran Odt] 4 mg PO Q8HR PRN #10 tab 07/25/23 Allergies Allergy/AdvReac Type Severity Reaction Status Date / Time cadex Allergy Rash/Hives Uncoded 07/25/23 06:40 Review of Systems ROS Statement: Those systems with pertinent positive or pertinent negative responses have been documented in the HPI. ROS Other: All systems not noted in ROS Statement are negative. Past Medical History Past Medical History: No Reported History Additional Past Medical History / Comment(s): psoriasis History of Any Multi-Drug Resistant Organisms: None Reported Past Surgical History: No Surgical Hx Reported Additional Past Surgical History / Comment(s): sweat gland removal from left eye Past Psychological History: No Psychological Hx Reported Smoking Status: Former smoker Past Alcohol Use History: Occasional Past Drug Use History: Marijuana General Exam Limitations: no limitations General appearance: alert, in no apparent distress Head exam: Present: atraumatic, normocephalic, normal inspection Eye exam: Present: normal appearance, PERRL, EOMI. Absent: scleral icterus, conjunctival injection, periorbital swelling ENT exam: Present: normal exam, normal oropharynx, mucous membranes moist Neck exam: Present: normal inspection, full ROM. Absent: tenderness, meningismus, lymphadenopathy Respiratory exam: Present: normal lung sounds bilaterally. Absent: respiratory distress, wheezes, rales, rhonchi, stridor Cardiovascular Exam: Present: regular rate, normal rhythm, normal heart sounds. Absent: systolic murmur, diastolic murmur, rubs, gallop, clicks GI/Abdominal exam: Present: soft, normal bowel sounds. Absent: distended, tenderness, guarding, rebound, rigid Course Vital Signs 07/25/23 07/25/23 06:40 08:01 Temperature 99.8 F H 99.8 F H Pulse Rate 68 Respiratory 18 Rate Blood Pressure 127/68 O2 Sat by Pulse 99 Oximetry Medical Decision Making - Medical Decision Making Was pt. sent in by a medical professional or institution (, PA, ASSURANCE ASSISTANT, urgent care, hospital, or prison...) When possible be specific @ -No Did you speak to anyone other than the patient for history (EMS, parent, family, police, friend...)? What history was obtained from this source @ -No Did you review nursing and triage notes (agree or disagree)? Why? @ -I reviewed and agree with nursing and triage notes Were old charts reviewed (outside hosp., previous admission, EMS record, old EKG, old radiological studies, urgent care reports/EKG's, prison records)? Report findings @ -No old charts were reviewed Differential Diagnosis (chest pain, altered mental status, abdominal pain women, abdominal pain men, vaginal bleeding, weakness, fever, dyspnea, syncope, headache, dizziness, GI bleed, back pain, seizure, CVA, palpatations, mental health, musculoskeletal)? @ -COVID 19, RSV, influenza, pneumonia, acute bronchitis, URI, this list is not all inclusive EKG interpreted by me (3pts min.). @ -None X-rays interpreted by me (1pt min.). @ -None done CT interpreted by me (1pt min.). @ -None done U/S interpreted by me (1pt. min.). @ -None done What testing was considered but not performed or refused? (CT, X-rays, U/S, labs)? Why? @ -None What meds were considered but not given or refused? Why? @ -None Did you discuss the management of the patient with other professionals (professionals i.e. , PA, ASSURANCE ASSISTANT, lab, RT, psych nurse, social work nurse, reactor operator, teacher, dairy quality assurance officer, nurse outreach case manager)? Give summary @ -No Was smoking cessation discussed for >3mins.? @ -No Was critical care preformed (if so, how long)? @ -No Were there social determinants of health that impacted care today? How? (H omelessness, low income, unemployed, alcoholism, drug addiction, transportation, low edu. Level, literacy, decrease access to med. care, skilled nursing, rehab)? @ -No Was there de-escalation of care discussed even if they declined (Discuss DNR or withdrawal of care, Hospice)? DNR status @ -No What co-morbidities impacted this encounter? (DM, HTN, Smoking, COPD, CAD, Cancer, CVA, ARF, Chemo, Hep., AIDS, mental health diagnosis, sleep apnea, morbid obesity)? @ -None Was patient admitted / discharged? Hospital course, mention meds given and route, prescriptions, significant lab abnormalities, going to OR and other pertinent info. @ -Did charge patient presented to for URI symptoms sore throat vomiting she feels greatly improved after Toradol and Zofran. Patient is discharged with symptomatic treatment return parameters discussed. Undiagnosed new problem with uncertain prognosis? @ -No Drug Therapy requiring intensive monitoring for toxicity (Heparin, Nitro, Insulin, Cardizem)? @ -No Were any procedures done? @ -No Diagnosis/symptom? @ -Viral URI, nausea vomiting Acute, or Chronic, or Acute on Chronic? @ -Acute Uncomplicated (without systemic symptoms) or Complicated (systemic symptoms)? @ -Uncomplicated Side effects of treatment? @ -No Exacerbation, Progression, or Severe Exacerbation? @ -No Poses a threat to life or bodily function? How? (Chest pain, [place], [place], pneumonia, PE, COPD, DKA, ARF, appy, cholecystitis, CVA, Diverticulitis, Homicidal, Suicidal, threat to staff... and all critical care pts) @ -No - Lab Data Lab Results 07/25/23 07/25/23 Range/Units 06:58 07:10 Influenza Type A (PCR) Not Detected (Not Detectd) Influenza Type B (PCR) Not Detected (Not Detectd) RSV (PCR) Not Detected (Not Detectd) SARS-CoV-2 (PCR) Not Detected (Not Detectd) Group A Strep (PCR) NOT DETECTED (Not Detectd) Disposition Clinical Impression: Pharyngitis, Viral URI, Nausea & vomiting Disposition: HOME SELF-CARE Condition: Stable Instructions (If sedation given, give patient instructions): Upper Respiratory Infection (ED), Pharyngitis (ED) Additional Instructions: Please return to the Emergency Department if symptoms worsen or any other concerns. Prescriptions: Ibuprofen [Motrin] 600 mg PO Q8HR PRN #20 tab PRN Reason: Pain Ondansetron Odt [Zofran Odt] 4 mg PO Q8HR PRN #10 tab PRN Reason: Nausea Is patient prescribed a controlled substance at d/c from ED?: No Referrals: Ly Vargas [Primary Care Provider] - 1-2 days Time of Disposition:
[2023-07-25 08:44] VITALS: BP 146/78; PULSE 86; TEMP 99.1
== END 2023-07-25 08:44 | disposition home or self-care (01) ==
LOC: EC 06:36
DX: J06.9 Acute upper respiratory infection, unspecified (principal); R11.2 Nausea with vomiting, unspecified; Z91.048 Other nonmedicinal substance allergy status; Z87.891 Personal history of nicotine dependence
CPT/HCPCS: 96372 ×2; 99283 ×2; 87651; 87636; J1885

== ENCOUNTER 2024-04-26 06:51 | Emergency (ER) | payer OTHER ==
[2024-04-26 07:07] VITALS: RESP 18
--- NOTE | 2024-04-26 07:40 | ED ---
General Adult HPI - General Chief complaint: Upper Respiratory Infection Stated complaint: Sore Throat, Headache Time Seen by Provider: 04/26/24 07:08 Source: patient, RN notes reviewed Mode of arrival: ambulatory - History of Present Illness Initial comments: 29-year-old male presents to the emergency department for URI symptoms x 1 day. Patient states that last night he started developing body aches, chills. He notes nasal congestion and sore throat. He also endorses a mild cough. He denies fever. Past medical history includes psoriasis and rosacea. - Related Data Previous Rx's Medication Instructions Recorded Amoxicillin/Potassium Clav 1 tab PO BID 10 Days #20 tab 04/23/22 [Amox-Clav 875-125 mg Tablet] Ibuprofen [Motrin] 600 mg PO Q8HR PRN #30 tab 05/07/22 Ondansetron Odt [Zofran Odt] 4 mg PO Q8HR PRN #10 tab 12/03/22 Lidocaine 5% Patch [Lidoderm] 1 patch TOPICAL DAILY PRN #30 patch 01/21/23 Lidocaine 5% Patch [Lidoderm 5% 1 patch TOPICAL DAILY PRN #10 patch 03/23/23 Patch] HYDROcodone/APAP 5-325MG [[place] 1 tab PO Q6HR PRN 3 Days #12 tab 04/06/23 5-325] Lidocaine 5% Patch [Lidoderm 5% 1 patch TOPICAL DAILY #10 patch 04/06/23 Patch] Benzonatate [Tessalon Perle] 200 mg PO TID PRN #30 capsule 05/11/23 Ibuprofen [Motrin] 800 mg PO Q8H PRN #30 tab 05/11/23 Oseltamivir [Tamiflu] 75 mg PO Q12HR 5 Days #10 cap 05/11/23 Lidocaine 5% Patch [Lidoderm] 1 each TP DAILY PRN #5 patch 06/05/23 Ibuprofen [Motrin] 600 mg PO Q8HR PRN #20 tab 07/25/23 Ondansetron Odt [Zofran Odt] 4 mg PO Q8HR PRN #10 tab 07/25/23 Oseltamivir [Tamiflu] 75 mg PO Q12HR #10 cap 04/26/24 Allergies Allergy/AdvReac Type Severity Reaction Status Date / Time cadex Allergy Rash/Hives Uncoded 04/26/24 07:07 Review of Systems ROS Statement: Those systems with pertinent positive or pertinent negative responses have been documented in the HPI. ROS Other: All systems not noted in ROS Statement are negative. Past Medical History Past Medical History: No Reported History Additional Past Medical History / Comment(s): psoriasis History of Any Multi-Drug Resistant Organisms: None Reported Past Surgical History: No Surgical Hx Reported Additional Past Surgical History / Comment(s): sweat gland removal from left eye Past Psychological History: No Psychological Hx Reported Smoking Status: Former smoker Past Alcohol Use History: Occasional Past Drug Use History: Marijuana General Exam Limitations: no limitations General appearance: alert, in no apparent distress Head exam: Present: atraumatic, normocephalic, normal inspection Eye exam: Present: normal appearance, PERRL, EOMI. Absent: scleral icterus, conjunctival injection, periorbital swelling ENT exam: Present: mucous membranes moist, TM's normal bilaterally, normal external ear exam. Absent: normal oropharynx (Erythematous oropharynx with no tonsillar exudate) Neck exam: Present: normal inspection. Absent: tenderness, meningismus, lymphadenopathy Respiratory exam: Present: normal lung sounds bilaterally. Absent: respiratory distress, wheezes, rales, rhonchi, stridor Cardiovascular Exam: Present: regular rate, normal rhythm, normal heart sounds. Absent: systolic murmur, diastolic murmur, rubs, gallop, clicks Extremities exam: Present: normal inspection, full ROM, normal capillary refill. Absent: tenderness, pedal edema, joint swelling, calf tenderness Neurological exam: Present: alert, oriented X3 Psychiatric exam: Present: normal affect, normal mood Skin exam: Present: warm, dry, intact, normal color. Absent: rash Course Vital Signs 04/26/24 07:05 Temperature 98.4 F Pulse Rate 60 Respiratory 18 Rate Blood Pressure 92/63 O2 Sat by Pulse 97 Oximetry Medical Decision Making - Medical Decision Making Was pt. sent in by a medical professional or institution (, PA, GARMENT TAG STRINGER, urgent care, hospital, or intermediate...) When possible be specific @ -No Did you speak to anyone other than the patient for history (EMS, parent, family, police, friend...)? What history was obtained from this source @ -No Did you review nursing and triage notes (agree or disagree)? Why? @ -I reviewed and agree with nursing and triage notes Were old charts reviewed (outside hosp., previous admission, EMS record, old EKG, old radiological studies, urgent care reports/EKG's, intermediate records)? Report findings @ -No old charts were reviewed Differential Diagnosis (chest pain, altered mental status, abdominal pain women, abdominal pain men, vaginal bleeding, weakness, fever, dyspnea, syncope, headache, dizziness, GI bleed, back pain, seizure, CVA, palpatations, mental health, musculoskeletal)? @ -COVID, influenza, RSV, strep pharyngitis, pneumonia, this list is not all inclusive. EKG interpreted by me (3pts min.). @ -None X-rays interpreted by me (1pt min.). @ -None done CT interpreted by me (1pt min.). @ -None done U/S interpreted by me (1pt. min.). @ -None done What testing was considered but not performed or refused? (CT, X-rays, U/S, labs)? Why? @ -None What meds were considered but not given or refused? Why? @ -None Did you discuss the management of the patient with other professionals (professionals i.e. , PA, GARMENT TAG STRINGER, lab, RT, psych nurse, social work administrator, helicopter pilot instructor, teacher, public service officer, patient case coordinator)? Give summary @ -No Was smoking cessation discussed for >3mins.? @ -No Was critical care preformed (if so, how long)? @ -No Were there social determinants of health that impacted care today? How? (Homelessness, low income, unemployed, alcoholism, drug addiction, transportation, low edu. Level, literacy, decrease access to med. care, assisted, rehab)? @ -No Was there de-escalation of care discussed even if they declined (Discuss DNR or withdrawal of care, Hospice)? DNR status @ -No What co-morbidities impacted this encounter? (DM, HTN, Smoking, COPD, CAD, Cancer, CVA, ARF, Chemo, Hep., AIDS, mental health diagnosis, sleep apnea, morbid obesity)? @ -None Was patient admitted / discharged? Hospital course, mention meds given and route, prescriptions, significant lab abnormalities, going to OR and other pertinent info. @ -Discharge. Patient presented emergency department for URI symptoms x 1 day. Denies fever. Patient's vital signs are stable. He was tested for COVID, influenza, RSV, strep pharyngitis. Patient is positive for influenza A. Patient will be discharged home. He is understanding agreeable this plan. Patient stable at time of discharge. Case discussed with Dr. Diaz. Undiagnosed new problem with uncertain prognosis? @ -No Drug Therapy requiring intensive monitoring for toxicity (Heparin, Nitro, Insulin, Cardizem)? @ -No Were any procedures done? @ -No Diagnosis/symptom? @ -Influenza A Acute, or Chronic, or Acute on Chronic? @ -Acute Uncomplicated (without systemic symptoms) or Complicated (systemic symptoms)? @ -Acute uncomplicated Side effects of treatment? @ -No Exacerbation, Progression, or Severe Exacerbation? @ -No Poses a threat to life or bodily function? How? (Chest pain, [place], [place], pneumonia, PE, COPD, DKA, ARF, appy, cholecystitis, CVA, Diverticulitis, Homicidal, Suicidal, threat to staff... and all critical care pts) @ -No - Lab Data Lab Results 04/26/24 04/26/24 Range/Units 07:43 07:43 Influenza Type A (PCR) Detected A (Not Detectd) Influenza Type B (PCR) Not Detected (Not Detectd) RSV (PCR) Not Detected (Not Detectd) SARS-CoV-2 (PCR) Not Detected (Not Detectd) Group A Strep (PCR) NOT DETECTED (Not Detectd) Disposition Clinical Impression: Influenza A Disposition: HOME SELF-CARE Condition: Stable Instructions (If sedation given, give patient instructions): Influenza (ED) Additional Instructions: Please leaf size picker medication and take to completion. Return to the emergency department for new or worsening symptoms. Prescriptions: Oseltamivir [Tamiflu] 75 mg PO Q12HR #10 cap Is patient prescribed a controlled substance at d/c from ED?: No Referrals: None,Stated [Primary Care Provider] - 1-2 days
[2024-04-26 08:24] LABS: Influenza A Detected (Not Detectd); Influenza B Not Detected (Not Detectd); RSV Not Detected (Not Detectd)
[2024-04-26 08:55] VITALS: BP 102/73; PULSE 62; TEMP 98.2
== END 2024-04-26 08:55 | disposition home or self-care (01) ==
LOC: EC 06:51
DX: J10.1 Influenza due to other identified influenza virus with other respiratory manifestations (principal)
CPT/HCPCS: 87636; 87651; 99284

== ENCOUNTER 2024-08-24 12:36 | Emergency (ER) | payer OTHER ==
[2024-08-24 12:56] VITALS: BP 125/77; PULSE 89; RESP 16; TEMP 98.9
--- NOTE | 2024-08-24 13:06 | ED ---
Nausea/Vomiting/Diarrhea HPI - General Chief complaint: Nausea/Vomiting/Diarrhea Stated complaint: fever, vomiting Time Seen by Provider: 08/24/24 13:05 Source: patient, RN notes reviewed Mode of arrival: ambulatory Limitations: no limitations - History of Present Illness Initial comments: Quick [id number] male presenting for nausea/vomiting/diarrhea x 1 day. Reports symptoms began suddenly last night. Also reports subjective fevers. - Related Data Previous Rx's Medication Instructions Recorded Amoxicillin/Potassium Clav 1 tab PO BID 10 Days #20 tab 04/23/22 [Amox-Clav 875-125 mg Tablet] Ibuprofen [Motrin] 600 mg PO Q8HR PRN #30 tab 05/07/22 Ondansetron Odt [Zofran Odt] 4 mg PO Q8HR PRN #10 tab 12/03/22 Lidocaine 5% Patch [Lidoderm] 1 patch TOPICAL DAILY PRN #30 patch 01/21/23 Lidocaine 5% Patch [Lidoderm 5% 1 patch TOPICAL DAILY PRN #10 patch 03/23/23 Patch] HYDROcodone/APAP 5-325MG [[place] 1 tab PO Q6HR PRN 3 Days #12 tab 04/06/23 5-325] Lidocaine 5% Patch [Lidoderm 5% 1 patch TOPICAL DAILY #10 patch 04/06/23 Patch] Benzonatate [Tessalon Perle] 200 mg PO TID PRN #30 capsule 05/11/23 Ibuprofen [Motrin] 800 mg PO Q8H PRN #30 tab 05/11/23 Oseltamivir [Tamiflu] 75 mg PO Q12HR 5 Days #10 cap 05/11/23 Lidocaine 5% Patch [Lidoderm] 1 each TP DAILY PRN #5 patch 06/05/23 Ibuprofen [Motrin] 600 mg PO Q8HR PRN #20 tab 07/25/23 Ondansetron Odt [Zofran Odt] 4 mg PO Q8HR PRN #10 tab 07/25/23 Oseltamivir [Tamiflu] 75 mg PO Q12HR #10 cap 04/26/24 Allergies Allergy/AdvReac Type Severity Reaction Status Date / Time cadex Allergy Rash/Hives Uncoded 04/26/24 07:07 Review of Systems ROS Statement: Those systems with pertinent positive or pertinent negative responses have been documented in the HPI. ROS Other: All systems not noted in ROS Statement are negative. Past Medical History Past Medical History: No Reported History Additional Past Medical History / Comment(s): psoriasis History of Any Multi-Drug Resistant Organisms: None Reported Past Surgical History: No Surgical Hx Reported Additional Past Surgical History / Comment(s): sweat gland removal from left eye Past Psychological History: No Psychological Hx Reported Smoking Status: Former smoker Past Alcohol Use History: Occasional Past Drug Use History: Marijuana General Exam - General Exam Comments Initial Comments: Visual Physical Exam Vital signs reviewed General: Well-appearing, nontoxic, no acute distress. Head: Normocephalic, atraumatic Eyes: PERRLA, EOMI ENT: Airway patent Chest: Nonlabored breathing Skin: No visual rash, normal skin tone Neuro: Alert and oriented 3 Musculoskeletal: No gross abnormalities Limitations: no limitations Course Vital Signs 08/24/24 12:54 Temperature 98.9 F Pulse Rate 89 Respiratory 16 Rate Blood Pressure 125/77 O2 Sat by Pulse 99 Oximetry Medical Decision Making - Medical Decision Making I completed the quick note portion of this chart signed Stephanie Kilgore PA-C Patient left AGAINST MEDICAL ADVICE before workup was complete - Lab Data Result diagrams: 08/24/24 13:22 08/24/24 13:22 Lab Results 08/24/24 08/24/24 08/24/24 Range/Units 13:22 13:22 13:22 WBC 14.24 H (4.50-10.00) 10*3/uL RBC 5.49 (4.40-5.60) 10*6/uL Hgb 15.7 (13.0-17.0) g/dL Hct 44.9 (39.6-50.0) % MCV 81.8 (80.0-97.0) fL MCH 28.6 (27.0-32.0) pg MCHC 35.0 (32.0-37.0) g/dL Plt Count 239 (140-440) 10*3/uL MPV 10.0 (9.5-12.2) fL Immature Gran % (Auto) 0.3 % Neutrophils % 80.8 % Lymphocytes % 12.3 % Monocytes % 6.1 % Eosinophils % 0.1 % Basophils % 0.4 % Immature Gran # 0.04 (0.00-0.04) 10*3/uL Neutrophils # 11.51 H (1.80-7.70) 10*3/uL Lymphocytes # 1.75 (0.90-5.00) 10*3/uL Monocytes # 0.87 (0.20-1.00) 10*3/uL Eosinophils # 0.02 L (0.04-0.35) 10*3/uL Basophils # 0.05 (0.00-0.10) 10*3/uL Sodium 135 L (137-145) mmol/L Potassium 4.6 (3.5-5.1) mmol/L Chloride 98 (98-107) mmol/L Carbon Dioxide 26 (22-30) mmol/L Anion Gap 11 mmol/L BUN 14 (9-20) mg/dL Creatinine 0.74 (0.66-1.25) mg/dL Est GFR (CKD-EPI)AfAm >90 (>60 ml/min/1.73 sqM) Est GFR (CKD-EPI)NonAf >90 (>60 ml/min/1.73 sqM) Glucose 82 (74-99) mg/dL Plasma Lactic Acid Viral 0.9 (0.7-2.0) mmol/L Calcium 9.9 (8.4-10.2) mg/dL Total Bilirubin 0.8 (0.2-1.3) mg/dL AST 26 (17-59) U/L ALT 30 (4-49) U/L Alkaline Phosphatase 75 (38-126) U/L Total Protein 7.8 (6.3-8.2) g/dL Albumin 4.7 (3.5-5.0) g/dL Lipase 54 (23-300) U/L Urine Color Urine Appearance (Clear) Urine pH (5.0-8.0) Ur Specific [place] (1.001-1.035) Urine Protein (Negative) Urine Glucose (UA) (Negative) Urine Ketones (Negative) Urine Blood (Negative) Urine Nitrite (Negative) Urine Bilirubin (Negative) Urine Urobilinogen (<2.0) mg/dL Ur Leukocyte Esterase (Negative) Influenza Type A (PCR) (Not Detectd) Influenza Type B (PCR) (Not Detectd) RSV (PCR) (Not Detectd) SARS-CoV-2 (PCR) (Not Detectd) 08/24/24 08/24/24 Range/Units 13:22 13:28 WBC (4.50-10.00) 10*3/uL RBC (4.40-5.60) 10*6/uL Hgb (13.0-17.0) g/dL Hct (39.6-50.0) % MCV (80.0-97.0) fL MCH (27.0-32.0) pg MCHC (32.0-37.0) g/dL Plt Count (140-440) 10*3/uL MPV (9.5-12.2) fL Immature Gran % (Auto) % Neutrophils % % Lymphocytes % % Monocytes % % Eosinophils % % Basophils % % Immature Gran # (0.00-0.04) 10*3/uL Neutrophils # (1.80-7.70) 10*3/uL Lymphocytes # (0.90-5.00) 10*3/uL Monocytes # (0.20-1.00) 10*3/uL Eosinophils # (0.04-0.35) 10*3/uL Basophils # (0.00-0.10) 10*3/uL Sodium (137-145) mmol/L Potassium (3.5-5.1) mmol/L Chloride (98-107) mmol/L Carbon Dioxide (22-30) mmol/L Anion Gap mmol/L BUN (9-20) mg/dL Creatinine (0.66-1.25) mg/dL Est GFR (CKD-EPI)AfAm (>60 ml/min/1.73 sqM) Est GFR (CKD-EPI)NonAf (>60 ml/min/1.73 sqM) Glucose (74-99) mg/dL Plasma Lactic Acid Viral (0.7-2.0) mmol/L Calcium (8.4-10.2) mg/dL Total Bilirubin (0.2-1.3) mg/dL AST (17-59) U/L ALT (4-49) U/L Alkaline Phosphatase (38-126) U/L Total Protein (6.3-8.2) g/dL Albumin (3.5-5.0) g/dL Lipase (23-300) U/L Urine Color Light Yellow Urine Appearance Clear (Clear) Urine pH 5.5 (5.0-8.0) Ur Specific [place] 1.022 (1.001-1.035) Urine Protein Negative (Negative) Urine Glucose (UA) Negative (Negative) Urine Ketones Negative (Negative) Urine Blood Negative (Negative) Urine Nitrite Negative (Negative) Urine Bilirubin Negative (Negative) Urine Urobilinogen <2.0 (<2.0) mg/dL Ur Leukocyte Esterase Negative (Negative) Influenza Type A (PCR) Not Detected (Not Detectd) Influenza Type B (PCR) Not Detected (Not Detectd) RSV (PCR) Not Detected (Not Detectd) SARS-CoV-2 (PCR) Not Detected (Not Detectd) Disposition Clinical Impression: Nausea vomiting and diarrhea Disposition: LEFT AGAINST MEDICAL ADVICE Referrals: None,Stated [Primary Care Provider] - 1-2 days
[2024-08-24 13:50] LABS: Basophils # (A) 0.05 10*3/uL (0.00-0.10); Basophils % (A) 0.4 %; Eosinophils # (A) 0.02 10*3/uL (0.04-0.35); Eosinophils % (A) 0.1 %; HCT 44.9 % (39.6-50.0); HGB 15.7 g/dL (13.0-17.0); Lymphocytes # (A) 1.75 10*3/uL (0.90-5.00); Lymphocytes % (A) 12.3 %; MCH 28.6 pg (27.0-32.0); MCHC 35.0 g/dL (32.0-37.0); MCV 81.8 fL (80.0-97.0); Monocytes # (A) 0.87 10*3/uL (0.20-1.00); Monocytes % (A) 6.1 %; Neutrophils # (A) 11.51 10*3/uL (1.80-7.70); Neutrophils % (A) 80.8 %; Platelet Count 239 10*3/uL (140-440); RBC 5.49 10*6/uL (4.40-5.60); RDW 12.6 % (11.5-14.5); WBC 14.24 10*3/uL (4.50-10.00)
[2024-08-24 14:12] LABS: Bilirubin,Urine Negative (Negative); Blood,Urine Negative (Negative); Color,Urine Light Yellow; Glucose,Urine (UA) Negative (Negative); Ketones,Urine Negative (Negative); Leukocyte Esterase,Urine Negative (Negative); Nitrite,Urine Negative (Negative); PH, Urine 5.5 (5.0-8.0); Protein,Urine Negative (Negative); Specific Gravity,Urine 1.022 (1.001-1.035); Urobilinogen,Urine <2.0 mg/dL (<2.0)
[2024-08-24 14:13] LABS: ALT 30 U/L (4-49); AST 26 U/L (17-59); African American GFR (CKD) >90 (>60 ml/min/1.73 sqM); Albumin 4.7 g/dL (3.5-5.0); Alkaline Phosphatase 75 U/L (38-126); Anion Gap 11 mmol/L; Blood Urea Nitrogen 14 mg/dL (9-20); Calcium 9.9 mg/dL (8.4-10.2); Carbon Dioxide 26 mmol/L (22-30); Chloride 98 mmol/L (98-107); Glucose 82 mg/dL (74-99); Lipase 54 U/L (23-300); Non-African American GFR(CKD) >90 (>60 ml/min/1.73 sqM); Potassium 4.6 mmol/L (3.5-5.1); Sodium 135 mmol/L (137-145); Total Protein 7.8 g/dL (6.3-8.2)
[2024-08-24 14:29] LABS: RSV Not Detected (Not Detectd)
== END 2024-08-24 14:26 | disposition left against medical advice (07) ==
LOC: EC 12:36
DX: R11.2 Nausea with vomiting, unspecified (principal); R19.7 Diarrhea, unspecified; Z87.891 Personal history of nicotine dependence; Z88.9 Allergy status to unspecified drugs, medicaments and biological substances; Z53.29 Procedure and treatment not carried out because of patient's decision for other reasons
CPT/HCPCS: 36415; 80053; 81003; 83605; 83690; 85025; 87636; 99283

== ENCOUNTER 2024-08-24 15:29 | Emergency (ER) | payer OTHER ==
[2024-08-24 16:13] VITALS: TEMP 98.6
[2024-08-24] MEDS: SODIUM CHLORIDE 0.9% 1,000 ML IV ONE (16:46)
[2024-08-24 16:51] VITALS: RESP 16
--- NOTE | 2024-08-24 17:16 | ED ---
Nausea/Vomiting/Diarrhea HPI - General Chief complaint: Nausea/Vomiting/Diarrhea Stated complaint: headache, vomiting, diarrhea Time Seen by Provider: 08/24/24 16:32 Source: patient, RN notes reviewed Mode of arrival: ambulatory Limitations: no limitations - History of Present Illness Initial comments: 29-year-old male with no pertinent medical conditions presenting to the emergency room with complaints of nausea, vomiting, diarrhea that occurred yesterday evening. Patient states that he was camping at the [facility] with friends and family in similar symptoms were reported by his friends. He states that he has been having abdominal cramping and is followed by nonbloody diarrhea with associated nausea and vomiting. Currently patient states that he is not having abdominal pain or feeling nauseated however reports a headache. Denies urinary complaints, hematemesis, or bloody stools. - Related Data Previous Rx's Medication Instructions Recorded Amoxicillin/Potassium Clav 1 tab PO BID 10 Days #20 tab 04/23/22 [Amox-Clav 875-125 mg Tablet] Ibuprofen [Motrin] 600 mg PO Q8HR PRN #30 tab 05/07/22 Ondansetron Odt [Zofran Odt] 4 mg PO Q8HR PRN #10 tab 12/03/22 Lidocaine 5% Patch [Lidoderm] 1 patch TOPICAL DAILY PRN #30 patch 01/21/23 Lidocaine 5% Patch [Lidoderm 5% 1 patch TOPICAL DAILY PRN #10 patch 03/23/23 Patch] HYDROcodone/APAP 5-325MG [[place] 1 tab PO Q6HR PRN 3 Days #12 tab 04/06/23 5-325] Lidocaine 5% Patch [Lidoderm 5% 1 patch TOPICAL DAILY #10 patch 04/06/23 Patch] Benzonatate [Tessalon Perle] 200 mg PO TID PRN #30 capsule 05/11/23 Ibuprofen [Motrin] 800 mg PO Q8H PRN #30 tab 05/11/23 Oseltamivir [Tamiflu] 75 mg PO Q12HR 5 Days #10 cap 05/11/23 Lidocaine 5% Patch [Lidoderm] 1 each TP DAILY PRN #5 patch 06/05/23 Ibuprofen [Motrin] 600 mg PO Q8HR PRN #20 tab 07/25/23 Ondansetron Odt [Zofran Odt] 4 mg PO Q8HR PRN #10 tab 07/25/23 Oseltamivir [Tamiflu] 75 mg PO Q12HR #10 cap 04/26/24 Allergies Allergy/AdvReac Type Severity Reaction Status Date / Time cadex Allergy Rash/Hives Uncoded 04/26/24 07:07 Review of Systems ROS Statement: Those systems with pertinent positive or pertinent negative responses have been documented in the HPI. ROS Other: All systems not noted in ROS Statement are negative. Past Medical History Past Medical History: No Reported History Additional Past Medical History / Comment(s): psoriasis History of Any Multi-Drug Resistant Organisms: None Reported Past Surgical History: No Surgical Hx Reported Additional Past Surgical History / Comment(s): sweat gland removal from left eye Past Psychological History: No Psychological Hx Reported Smoking Status: Former smoker Past Alcohol Use History: Occasional Past Drug Use History: Marijuana General Exam Limitations: no limitations General appearance: alert, in no apparent distress Neck exam: Present: normal inspection. Absent: tenderness, meningismus, lymphadenopathy Respiratory exam: Present: normal lung sounds bilaterally. Absent: respiratory distress, wheezes, rales, rhonchi, stridor Cardiovascular Exam: Present: regular rate, normal rhythm, normal heart sounds. Absent: systolic murmur, diastolic murmur, rubs, gallop, clicks GI/Abdominal exam: Present: soft, normal bowel sounds. Absent: distended, tenderness, guarding, rebound, rigid Extremities exam: Present: normal inspection, full ROM, normal capillary refill. Absent: tenderness, pedal edema, joint swelling, calf tenderness Back exam: Present: normal inspection Course Vital Signs 08/24/24 08/24/24 08/24/24 16:11 16:50 18:31 Temperature 98.6 F Pulse Rate 110 H 90 79 Respiratory 20 16 16 Rate Blood Pressure 132/67 144/72 126/69 O2 Sat by Pulse 98 100 97 Oximetry Medical Decision Making - Medical Decision Making Was pt. sent in by a medical professional or institution (, PA, [employer], urgent care, hospital, or [facility]...) When possible be specific @ -No Did you speak to anyone other than the patient for history (EMS, parent, family, police, friend...)? What history was obtained from this source @ -No Did you review nursing and triage notes (agree or disagree)? Why? @ -I reviewed and agree with nursing and triage notes Were old charts reviewed (outside hosp., previous admission, EMS record, old EKG, old radiological studies, urgent care reports/EKG's, [facility] records)? Report findings @ -Reviewed patient's previous emergency department visit from 08/24/2024 provide the day where laboratory does studies were reviewed. Differential Diagnosis (chest pain, altered mental status, abdominal pain women, abdominal pain men, vaginal bleeding, weakness, fever, dyspnea, syncope, headache, dizziness, GI bleed, back pain, seizure, CVA, palpatations, mental health, musculoskeletal)? @ -Differential Abdominal Pain Men: Appendicitis, cholecystitis, diverticulosis, ischemic bowel, pancreatitis, hepatitis, UTI, gastroenteritis, AAA, incarcerated hernia, bowel obstruction, constipation, inflammatory bowel, hepatitis, peptic ulcer disease, splenic infarction, perforated viscus, testicular torsion, this is not meant to be an all-inclusive list EKG interpreted by me (3pts min.). @ -None X-rays interpreted by me (1pt min.). @ -None done CT interpreted by me (1pt min.). @ -None done U/S interpreted by me (1pt. min.). @ -None done What testing was considered but not performed or refused? (CT, X-rays, U/S, labs)? Why? @ -None What meds were considered but not given or refused? Why? @ -None Did you discuss the management of the patient with other professionals (professionals i.e. , PA, [employer], lab, RT, psych nurse, social sciences lecturer, bridge operator, teacher, service officer, mental health case manager)? Give summary @ -No Was smoking cessation discussed for >3mins.? @ -No Was critical care preformed (if so, how long)? @ -No Were there social determinants of health that impacted care today? How? (Homelessness, low income, unemployed, alcoholism, drug addiction, transportation, low edu. Level, literacy, decrease access to med. care, [place] [facility], rehab)? @ -No Was there de-escalation of care discussed even if they declined (Discuss DNR or withdrawal of care, Hospice)? DNR status @ -No What co-morbidities impacted this encounter? (DM, HTN, Smoking, COPD, CAD, Cancer, CVA, ARF, Chemo, Hep., AIDS, mental health diagnosis, sleep apnea, morbid obesity)? @ -None Was patient admitted / discharged? Hospital course, mention meds given and route, prescriptions, significant lab abnormalities, going to OR and other pertinent info. @ -Discharge. 29-year-old male present emergency with acute nausea, vomiting, diarrhea. Patient was seen in the emergency department and had labs drawn however left AGAINST MEDICAL ADVICE. On my evaluation the patient is resting up in examination bed with no signs of abdominal tenderness and vitals are stable. Reviewed patient's labs that were drawn at 1:15 PM earlier in the day which revealed reactive leukocytosis 14.2 left shift neutrophils 11.5 likely secondary to vomiting and diarrhea. CMP is unremarkable. Urinalysis reveals no signs of infection and viral testing is negative. And reevaluation after medications patient states he is feeling well and stable discharge. Symptoms likely secondary to gastroenteritis. Is provided with prescription for antiemetics and is effective follow clear liquid diet over the next 24 hours. Discussed with my attending Dr. Fitzpatrick. Undiagnosed new problem with uncertain prognosis? @ -No Drug Therapy requiring intensive monitoring for toxicity (Heparin, Nitro, Insulin, Cardizem)? @ -No Were any procedures done? @ -No Diagnosis/symptom? @ -Gastroenteritis Acute, or Chronic, or Acute on Chronic? @ -Acute Uncomplicated (without systemic symptoms) or Complicated (systemic symptoms)? @ -Uncomplicated Side effects of treatment? @ -No Exacerbation, Progression, or Severe Exacerbation? @ -No Poses a threat to life or bodily function? How? (Chest pain, [place], [place], pneumonia, PE, COPD, DKA, ARF, appy, cholecystitis, CVA, Diverticulitis, Homicidal, Suicidal, threat to staff... and all critical care pts) @ -No Disposition Clinical Impression: Gastroenteritis Disposition: HOME SELF-CARE Condition: Good Instructions (If sedation given, give patient instructions): Gastroenteritis (ED) Additional Instructions: Please return to the Emergency Department if symptoms worsen or any other concerns. Is patient prescribed a controlled substance at d/c from ED?: No Referrals: None,Stated [Primary Care Provider] - 1-2 days Time of Disposition: 18:14
[2024-08-24] MEDS: KETOROLAC 15 MG/ML 1 ML VIAL IVP STA (17:22)
[2024-08-24] MEDS: PANTOPRAZOLE 40 MG/10 ML VIAL IVP STA (17:23)
[2024-08-24 18:32] VITALS: BP 126/69; PULSE 79
== END 2024-08-24 18:32 | disposition home or self-care (01) ==
LOC: EC 15:29
DX: K52.9 Noninfective gastroenteritis and colitis, unspecified (principal); Z87.891 Personal history of nicotine dependence; Z88.8 Allergy status to other drugs, medicaments and biological substances
CPT/HCPCS: 99284; 96374; 96375; 96361; J1885; J2470